=== PATIENT | female | born 2000 | race Caucasian/White ===

== ENCOUNTER 2022-12-17 12:43 | Emergency (ER) | payer MEDICAID, SELFPAY ==
--- NOTE | ~2022-12-17 | XR_ITS ---
EXAMINATION: XR knee LT 3V DATE: 12/17/2022 14:28 INDICATION: Nontraumatic medial left knee pain TECHNIQUE: Anteroposterior, oblique and crosstable lateral views of the left knee were obtained COMPARISON: None. FINDINGS: Alignment is normal. No fracture. Joint spaces appear normal on nonweightbearing imaging. No joint e ffusion/layering lipohemarthrosis. Soft tissues are unremarkable. IMPRESSION: 1. Negative left knee radiographs. Reviewed, dictated and finalized at location A.
--- NOTE | ~2022-12-17 | US_ITS ---
EXAMINATION: US venous doppler [facility] DATE: 12/17/2022 13:41 INDICATION: Left lower limb pain. TECHNIQUE: Grayscale ultrasound images without and with compression and Doppler ultrasound images of the left lower extremity veins were obtained. COMPARISON: None. FINDINGS: The visualized portions of left common femoral vein, profunda (deep) femoral vein, femoral vein, popl iteal vein, peroneal veins, posterior tibial veins, and greater saphenous vein outflow are patent. IMPRESSION: 1. No deep venous thrombosis. Reviewed, dictated and finalized at location E.
[2022-12-17 12:50] VITALS: BP 148/74; PULSE 98; RESP 18; TEMP 36.3; O2SAT 100
--- NOTE | 2022-12-17 13:39 | ED.EXTPRO ---
HPI - Extremity Problem General Chief complaint: Extremity Problem,Nontraumatic Stated complaint: left leg pain - history of vascular disease Time Seen by Provider: 12/17/22 13:39 Source: patient Mode of arrival: ambulatory Limitations: no limitations History of Present Illness HPI Narrative: 22 years old white female presents with pain and the medial side of the distal left thigh and left knee started 2 months ago, intermittent. Patient is concerned about the possibility of vitamin D deficiency causing her symptoms. She denied any history of blood disorders. Or trauma. She denies any fever, chills, nausea, vomiting, shortness of breath or chest pain Related Data Allergies Allergy/AdvReac Type Severity Reaction Status Date / Time No Known Allergies Allergy Verified 12/17/22 12:44 Review of Systems Review of Systems: All systems reviewed & are unremarkable except as noted in HPI and below Exam Narrative: General appearance: Well-developed, well-nourished Skin: Normal color Head: Normocephalic, nontraumatic Eyes: Clear conjunctiva ENT: Oropharynx normal, ears normal, nose normal Neck: Supple, nontender Chest and respiratory: Airway patent, no respiratory distress, no accessory muscle use Heart: Regular rate/rhythm Abdomen: Soft, nontender, no organomegaly, quiet bowel sounds Vascular: Normal peripheral pulses, normal capillary refill. 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, no gross motor deficit Course Vital Signs Vital signs: Vital Signs Temperature 36.3 C L 12/17/22 12:50 Pulse Rate 98 12/17/22 12:50 Respiratory Rate 18 12/17/22 12:50 Blood Pressure 148/74 H 12/17/22 12:50 Pulse Oximetry 100 12/17/22 12:50 Oxygen Delivery Room Air 12/17/22 12:50 Temperature 36.3 C L 12/17/22 12:50 Pulse Rate 98 12/17/22 12:50 Respiratory Rate 18 12/17/22 12:50 Blood Pressure 148/74 H 12/17/22 12:50 Pulse Oximetry 100 12/17/22 12:50 Oxygen Delivery Room Air 12/17/22 12:50 MDM - Extremity (Nontraumatic) MDM Narrative Medical decision making narrative: Differential diagnosis, strain, sprain, contusion Work-up today showed no acute abnormality including venous Doppler of left lower extremity and x-ray of the left knee. Discharged on Tylenol, ibuprofen as needed Differential Diagnosis Differential diagnosis: Likely other (Sprain/strain, arthritis, deep vein thrombosis) Imaging Data Radiologist's impression: Impressions Venous Doppler Study 12/17/22 13:44 IMPRESSION: 1. No deep venous thrombosis. Knee X-Ray 12/17/22 14:43 IMPRESSION: 1. Negative left knee radiographs. Critical Care Time Critical Care Time Critical Care Time: No Discharge Plan Discharge Clinical Impression: Left leg pain Patient Disposition: Home, Self-Care Condition: Stable Instructions: Leg Pain (ED) Additional Instructions: Return if symptoms are worsening , call your family physician for appointment, take Tylenol as as needed for aches and pain, continue home medications. Continue ibuprofen 600 every 6 hours as needed Follow-up/Referrals: PHYSICIAN,HOG MAN [Primary Care Provider] - Kike Hilario MD [Physician] - 12/17/22 2:55 pm
== END 2022-12-17 14:59 | disposition home or self-care (01) ==
PROVIDERS: Emergency Provider Emergency Medicine
DX: M79.605 Pain in left leg (principal)
CPT/HCPCS: 73562; 93971; 99284

== ENCOUNTER 2023-03-04 00:47 | Emergency (ER) | payer OTHER, SELFPAY ==
[2023-03-04] VITALS (11 sets, daily range): BP systolic 123–145; BP diastolic 69–96; PULSE 72–105; RESP 14–18; TEMP 36.9; O2SAT 97–100
[2023-03-04 03:08] LABS: Basophils Absolute Auto 0.1 K/mm3 (0.0-0.1); Basophils Percent Auto 0.5 % (0.2-1.2); Eosinophils Absolute Auto 0.2 K/mm3 (0-0.3); Eosinophils Percent Auto 1.3 % (0-4.4); Hematocrit 42.7 % (37.0-47.0); Hemoglobin 13.7 g/dL (12.0-15.0); Immature Granulocyte Absolute 0.04 K/mm3 (0.00-0.031); Immature Granulocyte Percent A 0.4 % (0-0.5); Immature Platelet Fraction Pct 6.4 % (0.9-11.2); Lymphocytes Absolute Auto 4.14 K/mm3 (0.9-3.2); Lymphocytes Percent Auto 37.2 % (18.3-44.2); Mean Corpuscular HGB Conc 32.1 g/dl (32-36); Mean Corpuscular Hemoglobin 29.5 pg (26-34); Mean Corpuscular Volume 91.8 fl (80-100); Mean Platelet Volume 11.8 fl (7.4-10.4); Monocytes Absolute Auto 0.9 K/mm3 (0.1-0.6); Neutrophils Absolute Auto 5.9 K/mm3 (1.3-6.7); Neutrophils Percent Auto 52.6 % (45.5-73.1); Platelet Count Result 367 k/mm3 (150-375); Red Blood Count 4.65 M/mm3 (4.2-5.4); Red Cell Distribution Width 13.5 % (11.5-14.5); White Blood Count 11.1 K/mm3 (4.5-10.0)
[2023-03-04 03:13] LABS: Partial Thromboplastin Time 32.7 SECONDS (22.3-36.8); Prothrombin Time 13.1 Seconds (11.1-14.7)
[2023-03-04 03:18] LABS: Alanine Aminotransferase 32 U/L (6-35); Albumin Level 4.7 g/dL (3.5-5.1); Alkaline Phosphatase 71 U/L (38-126); Anion Gap 9 mmol/L (8-16); Aspartate Amino Transferase 29 U/L (14-36); Bilirubin,Total 0.3 mg/dL (0.2-1.3); Blood Urea Nitrogen 10 mg/dL (7-17); Calcium 9.7 mg/dL (8.4-10.2); Carbon Dioxide 29 mmol/L (22-30); Chloride 104 mmol/L (98-107); Estimated CRCL calculation 124 ml/min; Estimated Glomerular Filt Rate > 60; Glucose 108 mg/dL (65-110); Potassium 3.6 mmol/L (3.4-5.0); Sodium 142 mmol/L (137-145)
--- NOTE | 2023-03-04 05:16 | ED.GENADULT ---
HPI - General Adult General Chief complaint: GI Bleed Stated complaint: blood in stool Time Seen by Provider: 03/04/23 04:08 Source: patient Limitations: no limitations History of Present Illness HPI narrative: Patient is a 22-year-old female presents to the emergency department complaining of abnormal stool color. Patient notes over the past 24 hours she has noticed in [place] appearance to her stools, denies any history is the past, denies any new or change medications or any abnormal food consumption recently. Patient admits to some sporadic left upper quadrant cramping discomfort over the past couple days that she is not currently experiencing has not noticed anything that brings it on or makes it go away and took Tylenol for it and is overall not having any discomfort at this time it is not significantly distressing. Patient denies any history of Gastroenterology evaluation. Patient denies any bright red blood in her stool, dark tarry stools, vomiting, sick contacts, fever, chest pain, difficulty breathing, urinary discomfort blood thinner use, NSAID use, hematuria, vaginal bleeding, vaginal discharge, recent injuries, recent illness. Patient also last menstrual period was February 17 to . Patient admits to history of constipation chronically and often has difficulty with bowel movements and strains and often has large hard stools. Patient has pictures on her phone of her stool that primarily appears brown with tinges of orange in the water. Related Data Allergies Allergy/AdvReac Type Severity Reaction Status Date / Time No Known Allergies Allergy Verified 12/17/22 12:44 Review of Systems Review of Systems: A 10 system review of systems was completed on the patient and is negative except for what is stated in the HPI. Nursing and ancillary documentation was reviewed. PMFSH Comments At time of signature, I have reviewed and agree with nursing past medical, surgical, social and family history unless otherwise noted. Please see the nursing chart for further information. There is no relevant family history pertinent to the presenting complaint. Exam Narrative: CONST: No acute distress. Well nourished. HENMT: Head is normocephalic and atraumatic. Moist mucous membranes. No posterior oropharynx erythema. EYES: No conjunctival icterus, injection, or pallor. PERRL. NECK: No meningeal signs. RESP: Able to speak in full sentences. Normal respiratory effort. CTAB. CARDIO: Regular rate. Regular rhythm. 2+ DP and radial pulses bilaterally. GI: Nondistended. No tenderness to palpation. Soft. Negative Calle sign. No McBurney's point tenderness palpation no palpable masses or hernias. : No CVA tenderness to palpation. External examination of the anus does not reveal any fissures or hemorrhoids. Digital rectal examination reveals normal anal tone, no palpable internal hemorrhoids, no gross blood, stool Hemoccult is negative, slight orange appearance to the stool. SKIN: No rashes or lesions noted on exposed skin. NEURO: Oriented x3. Moves all extremities. EXTREM/MSK/BACK: No pedal edema. PSYCH: Normal affect. Course Vital Signs Vital signs: Vital Signs Temperature 98.4 F 03/04/23 00:55 Pulse Rate 99 03/04/23 00:55 Respiratory Rate 18 03/04/23 00:55 Blood Pressure 145/82 H 03/04/23 00:55 Pulse Oximetry 100 03/04/23 00:55 Temperature 98.4 F 03/04/23 00:55 Pulse Rate 77 03/04/23 06:24 Respiratory Rate 15 03/04/23 06:24 Blood Pressure 131/75 03/04/23 06:24 Pulse Oximetry 99 03/04/23 06:24 Procedures Stool Hemoccult Stool hemoccult #1: Stool Hemoccult Date: 03/04/23 Stool Hemoccult Time: 05:28 Procedural Steps Taken: stool placed in appropriate test area, developer placed on stool and control areas and controls appropriately positive and negative Hemoccult result: negative Medical Decision Making MDM Narrative Medical decision making narrative
[2023-03-04 05:50] LABS: Appearance Urine Clear (Clear); Bilirubin Urine Negative (Negative); Blood Urine Negative (Negative); Color Urine Yellow (Yellow); Glucose Urine UA Negative (Negative); Ketones Urine Negative (Negative); Leukocyte Esterase Ur Negative LEU/UL (Negative); Nitrate Urine Negative (Negative); Protein Urine Negative (Negative); Specific Grav Ur 1.025 (1.001-1.035); Urobilinogen Urine 0.2 mg/dL (<2.0)
[2023-03-04 06:03] LABS: Add Urine Microscopic? NO
== END 2023-03-04 06:26 | disposition home or self-care (01) ==
PROVIDERS: Emergency Provider Student in an Organized Health Care Education/Training Program
DX: R19.5 Other fecal abnormalities (principal)
CPT/HCPCS: 36415; 80053; 81003; 81025; 85025; 85055; 85610; 85730; 86850; 86900; 86901; 99283

== ENCOUNTER 2023-04-08 13:07 | Emergency (ER) | payer OTHER, SELFPAY ==
--- NOTE | ~2023-04-08 | US_ITS ---
EXAMINATION: US venous doppler [facility] DATE: 04/08/2023 14:09 INDICATION: Right lower limb swelling TECHNIQUE: Johns scale images without and with compression and Doppler images of the right lower extre mity veins were obtained. COMPARISON: None FINDINGS: The right common femoral vein, profunda femoral vein, femoral vein, popliteal vein, peronea l trunk, posterior tibial veins, and greater saphenous vein are patent. IMPRESSION: 1. Patent right lower extremity veins. No evidence of deep venous thrombosis. Reviewed, dictated and finalized at location B. 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
[2023-04-08 13:14] VITALS: BP 141/79; PULSE 86; RESP 17; TEMP 36.5; O2SAT 100
--- NOTE | 2023-04-08 18:18 | ED.EXTPRO ---
HPI - Extremity Problem General Chief complaint: Extremity Problem,Nontraumatic <Mckay Mack APRN - Last Filed: 04/08/23 19:02> Stated complaint: leg spasms <Mckay Mack APRN - Last Filed: 04/08/23 19:02> Time Seen by Provider: 04/08/23 17:15 <Mckay Mack APRN - Last Filed: 04/08/23 19:02> Source: patient <Mckay Mack APRN - Last Filed: 04/08/23 19:02> Mode of arrival: ambulatory <Mckay Mack APRN - Last Filed: 04/08/23 19:02> Limitations: no limitations <Mckay Mack APRN - Last Filed: 04/08/23 19:02> History of Present Illness HPI Narrative: Drew is a 22-year-old female patient presenting to the ER today for complaints of leg spasms in the right calf and around the right knee that started last night. States she felt as though she had a cramp in her leg last night and has been having some leg spasms as well. <Mckay Mack APRN - Last Filed: 04/08/23 19:02> Related Data Allergies/Adverse reactions: Allergies Allergy/AdvReac Type Severity Reaction Status Date / Time No Known Allergies Allergy Verified 12/17/22 12:44 <Mckay Mack APRN - Last Filed: 04/08/23 19:02> Review of Systems Review of Systems: Pertinent positives per HPI. Patient denies any fever, chills, rash, headache, visual changes, dizziness, cough, shortness of breath, chest pain, palpitations, nausea, vomiting, diarrhea, constipation, abdominal pain, or any urinary issues. <Mckay Mack APRN - Last Filed: 04/08/23 19:02> PMFSH Comments At the time of my signature, I reviewed and agree with the nursing past medical, surgical, social, and family history. There is no relevant family history pertinent to the patient complaint. <Mckay Mack APRN - Last Filed: 04/08/23 19:02> Exam Narrative: General: Well-developed, well nourished, in no apparent distress Head: Normocephalic, atraumatic. Cardio: Regular rate and rhythm, s1 and s2 normal, no murmur appreciated. Resp: Clear to auscultation bilaterally, no rhonchi, rales, wheezing or rubs. Musculoskeletal: No deformity, mild-tender to palpation over the right calf, grossly normal range of motion, muscle strength strong and equal, peripheral pulse strong, no edema, no cyanosis, normal gait and station <Mckay Mack APRN - Last Filed: 04/08/23 19:02> Course Course Emergency Course: Portions of this record may have been created with voice recognition software. <Mckay Mack APRN - Last Filed: 04/08/23 19:02> Portions of this record may have been created with voice recognition software. 1931: Case signed out to me at shift change. Labs and imaging reviewed. I personally evaluated the patient and agree with the assessment and plan. Will discharge home encourage PCP follow-up. Strict ED return precautions were discussed. She is agreeable to plan verbalized understanding. Discharged in stable condition. <Michelle Knight PA-C - Last Filed: 04/08/23 19:32> Vital Signs Vital signs: Vital Signs Temperature 97.7 F 04/08/23 13:14 Pulse Rate 86 04/08/23 13:14 Respiratory Rate 17 04/08/23 13:14 Blood Pressure 141/79 H 04/08/23 13:14 Pulse Oximetry 100 04/08/23 13:14 Temperature 97.7 F 04/08/23 13:14 Pulse Rate 91 04/08/23 18:55 Respiratory Rate 18 04/08/23 18:55 Blood Pressure 117/65 04/08/23 18:55 Pulse Oximetry 99 04/08/23 18:55 Vital signs reviewed <Mckay Mack APRN - Last Filed: 04/08/23 19:02> Vital Signs Temperature 97.7 F 04/08/23 13:14 Pulse Rate 86 04/08/23 13:14 Respiratory Rate 17 04/08/23 13:14 Blood Pressure 141/79 H 04/08/23 13:14 Pulse Oximetry 100 04/08/23 13:14 Temperature 97.7 F 04/08/23 13:14 Pulse Rate 91 04/08/23 18:55 Respiratory Rate 18 04/08/23 18:55 Blood Pressure 117/65 04/08/23 18:55 Pulse Oximetry 99 04/08/23 18:55
[2023-04-08 18:55] VITALS: BP 117/65; PULSE 91; RESP 18; O2SAT 99
[2023-04-08 19:12] LABS: Basophils Percent Auto 0.4 % (0.2-1.2); Eosinophils Absolute Auto 0.1 K/mm3 (0-0.3); Eosinophils Percent Auto 1.3 % (0-4.4); Hematocrit 44.1 % (37.0-47.0); Hemoglobin 14.4 g/dL (12.0-15.0); Immature Granulocyte Absolute 0.02 K/mm3 (0.00-0.031); Immature Granulocyte Percent A 0.2 % (0-0.5); Mean Corpuscular HGB Conc 32.7 g/dl (32-36); Mean Corpuscular Hemoglobin 29.6 pg (26-34); Mean Corpuscular Volume 90.6 fl (80-100); Monocytes Absolute Auto 0.8 K/mm3 (0.1-0.6); Monocytes Percent Auto 7.2 % (2.6-8.5); Neutrophils Percent Auto 53.9 % (45.5-73.1); Platelet Count Result 375 k/mm3 (150-375); Red Blood Count 4.87 M/mm3 (4.2-5.4); Red Cell Distribution Width 13.1 % (11.5-14.5); White Blood Count 11.1 K/mm3 (4.5-10.0)
[2023-04-08 19:26] LABS: Alanine Aminotransferase 34 U/L (6-35); Albumin Level 4.8 g/dL (3.5-5.1); Alkaline Phosphatase 64 U/L (38-126); Anion Gap 9 mmol/L (8-16); Aspartate Amino Transferase 36 U/L (14-36); Bilirubin,Total 0.5 mg/dL (0.2-1.3); Blood Urea Nitrogen 11 mg/dL (7-17); Carbon Dioxide 28 mmol/L (22-30); Chloride 100 mmol/L (98-107); Estimated CRCL calculation 161 ml/min; Estimated Glomerular Filt Rate > 60; Glucose 95 mg/dL (65-110); Magnesium 2.1 mg/dL (1.6-2.3); Potassium 3.9 mmol/L (3.4-5.0); Sodium 137 mmol/L (137-145)
== END 2023-04-08 19:42 | disposition home or self-care (01) ==
PROVIDERS: Emergency Provider Nurse Practitioner Family
DX: M79.661 Pain in right lower leg (principal)
CPT/HCPCS: 36415; 80053; 83735; 85025; 93971; 99284

== ENCOUNTER 2023-08-20 12:43 | Emergency (ER) | payer MEDICAID, SELFPAY ==
--- NOTE | ~2023-08-20 | US_ITS ---
EXAMINATION: US venous doppler [facility] DATE: 08/20/2023 13:09 INDICATION: Left lower limb pain. TECHNIQUE: Grayscale ultrasound images without and with compression and Doppler ultrasound images of the left lower extremity veins were obtained. COMPARISON: Ultrasound 12/17/2022 FINDINGS: The visualized portions of left common femoral vein, profunda (deep) femoral vein, femoral vein, popl iteal vein, peroneal veins, posterior tibial veins, and greater saphenous vein outflow are patent. IMPRESSION: 1. No deep venous thrombosis. Reviewed, dictated and finalized at location A.
[2023-08-20 12:45] VITALS: BP 122/95; PULSE 99; RESP 16; TEMP 36.6; O2SAT 98
--- NOTE | 2023-08-20 13:22 | ED.GENADULT ---
HPI - General Adult General Chief complaint: Extremity Problem,Nontraumatic Stated complaint: L leg cramps Time Seen by Provider: 08/20/23 12:49 History of Present Illness HPI narrative: Patient is a 22-year-old female who presents ER with cramping to the left thigh. Began this morning. No known injury. No leg swelling. No pain in the actual knee. She is not on blood thinners or control pills. No history of blood clots. But she is worried about DVT. No calf pain. Related Data Allergies Allergy/AdvReac Type Severity Reaction Status Date / Time No Known Allergies Allergy Verified 12/17/22 12:44 Review of Systems Constitutional: Constitutional: Reports no additional constitutional complaints Musculoskeletal: Musculoskeletal: Denies arthralgias, Denies joint swelling and Reports muscle cramps Integumentary/Breasts: Skin/Breast: Reports system reviewed and no additional complaints, except as docu [facility] Past Medical History Medical History (Updated 08/20/23 @ 13:30 by Joe Shaw MD) Healthy female adult Exam Narrative: GENERAL: Well-appearing, morbidly obese, and in no acute distress. HEAD: Normocephalic, atraumatic. ENT: Mucous membranes moist. CHEST: Clear to auscultation. No respiratory distress. HEART: Regular rate and rhythm. Normal peripheral pulses. EXTREMITIES: Normal range of motion. No edema. No lent knee tenderness/effusion. NEURO: Alert and oriented x3. PSYCH: Normal mood and affect. Course Course Emergency Course: Patient found results. Discharge home with supportive care. Vital Signs Vital signs: Vital Signs Temperature 97.9 F 08/20/23 12:45 Pulse Rate 99 08/20/23 12:45 Respiratory Rate 16 08/20/23 12:45 Blood Pressure 122/95 H 08/20/23 12:45 Pulse Oximetry 98 08/20/23 12:45 Oxygen Delivery Room Air 08/20/23 12:45 Temperature 97.9 F 08/20/23 12:45 Pulse Rate 99 08/20/23 12:45 Respiratory Rate 16 08/20/23 12:45 Blood Pressure 122/95 H 08/20/23 12:45 Pulse Oximetry 98 08/20/23 12:45 Oxygen Delivery Room Air 08/20/23 12:45 Medical Decision Making Vital Signs Vital Signs: Vital Signs Temperature 97.9 F 08/20/23 12:45 Pulse Rate 99 08/20/23 12:45 Respiratory Rate 16 08/20/23 12:45 Blood Pressure 122/95 H 08/20/23 12:45 Pulse Oximetry 98 08/20/23 12:45 Oxygen Delivery Room Air 08/20/23 12:45 Temperature 97.9 F 08/20/23 12:45 Pulse Rate 99 08/20/23 12:45 Respiratory Rate 16 08/20/23 12:45 Blood Pressure 122/95 H 08/20/23 12:45 Pulse Oximetry 98 08/20/23 12:45 Oxygen Delivery Room Air 08/20/23 12:45 Imaging Data Radiologist's impression: ITS Impressions Venous Doppler Study 08/20/23 13:11 IMPRESSION: 1. No deep venous thrombosis. Discharge Plan Discharge Clinical Impression: Musculoskeletal thigh pain Patient Disposition: Home, Self-Care Condition: Stable Instructions: Leg Pain (ED) Additional Instructions: Return the ER if you have new pain, you have chest pain shortness of breath, you lose consciousness, or you have additional concerns. Prescriptions: New ibuprofen 600 mg tablet 600 mg PO TID Qty: 14 0RF No Action Metamucil 3.4 gram/5.4 gram powder 1 tbsp PO DAILY Qty: 660 0RF Rx Instructions: mix into at least 8 oz of water or juice before administering sennosides [senna] 8.6 mg tablet 8.6 mg PO DAILY PRN (Reason: constipation) Qty: 20 0RF Follow-up/Referrals: Vanessa,DARRICK Polo [Primary Care Provider] - 1 Week
== END 2023-08-20 13:41 | disposition home or self-care (01) ==
PROVIDERS: Emergency Provider Emergency Medicine; PCP Nurse Practitioner Family
DX: M79.652 Pain in left thigh (principal)
CPT/HCPCS: 93971; 99284

== ENCOUNTER 2023-08-23 21:10 | Emergency (ER) | payer MEDICAID, SELFPAY ==
[2023-08-23 21:12] VITALS: BP 136/78; PULSE 97; RESP 16; TEMP 36.3; O2SAT 100
[2023-08-23 21:27] VITALS: RESP 18; O2SAT 100
[2023-08-23 22:06] LABS: Alveolar/Arterial O2 Gradient 6.5 mmHg; Base Excess ABG -1.5 mEq/l (+/-2.0); Carboxyhemoglobin 0.3 % THb (0-2.0); Fractional Inspired Oxygen 21 %; HCO3 ABG 21.4 mEq/l (22.0-26.0); Methemoglobin ABG 0.3 %THb (0-1.5); Oxygen Content ABG 19.8 %vol (16.0-22.0); Oxygen Saturation ABG 98.1 % (95.0-100.0); Oxyhemoglobin 97.7 % THb (90.0-100.0); PCO2 ABG 31.1 mmHg (35.0-45.0); PO2 FiO2 Ratio Arterial Blood 5.05 %; Reduced Hemoglobin 1.7 %THb (0-5.0); Total Hemoglobin 14.3 g/dL (12.0-18.0); pH ABG 7.455 (7.350-7.450)
[2023-08-23 22:08] LABS: Device ROOM AIR; Modified Allen's Test Pass; Site Drawn LEFT BRACHIAL
--- NOTE | 2023-08-24 01:04 | ED.GENADULT ---
HPI - General Adult General Chief complaint: Unspecified Stated complaint: i want to be checked for carbon monoxide Time Seen by Provider: 08/23/23 21:38 History of Present Illness HPI narrative: patient has had mild nausea, headache, and some nasal congestion over last 2 days, she is very concerned that she may have carbon monoxide poisoning. Related Data Allergies Allergy/AdvReac Type Severity Reaction Status Date / Time No Known Allergies Allergy Verified 12/17/22 12:44 Review of Systems Review of Systems: All systems reviewed & are unremarkable except as noted in HPI and below [facility] Past Medical History Medical History (Updated 08/24/23 @ 00:00 by Background Daemon) Healthy female adult Exam Narrative: EXAMINATION OF ORGAN SYSTEMS/BODY AREAS: Constitutional: Vital signs per nursing GENERAL:[No acute distress, non-toxic appearing.] HEAD: Normal with no signs of head trauma. EYES: EOMI, conjunctiva normal ENT: Hearing grossly intact LUNGS: Nonlabored breathing. HEART: [Regular rate and rhythm] ABD: [Soft], [nontender to palpation] EXT: Normal range of motion SKIN: [No rashes or lesions.] NEURO: [Alert and oriented x 3. No gross focal sensory or strength deficits.] PSYCH: Normal affect Course Vital Signs Vital signs: Vital Signs Temperature 97.4 F L 08/23/23 21:12 Pulse Rate 97 08/23/23 21:12 Respiratory Rate 16 08/23/23 21:12 Blood Pressure 136/78 08/23/23 21:12 Pulse Oximetry 100 08/23/23 21:12 Oxygen Delivery Room Air 08/23/23 21:12 Temperature 97.4 F L 08/23/23 21:12 Pulse Rate 97 08/23/23 21:12 Respiratory Rate 18 08/23/23 21:27 Blood Pressure 136/78 08/23/23 21:12 Pulse Oximetry 100 08/23/23 21:27 Oxygen Delivery Room Air 08/23/23 21:12 Medical Decision Making [facility] Narrative Medical decision making narrative: Patient presents because she is concerned about having carbon monoxide poisoning. I did therefore due to fully obtain an ABG and this is thankfully normal without elevated carboxyhemoglobin. I discussed with the patient, she is very well-appearing here with normal vital signs and normal oxygenation on room air, I suspect more likely she has a viral syndrome and I have asked her to follow up with primary care doctor with return precautions. She has no neurologic symptoms here and is smiling, well appearing, ambulating normal steady gait, speaking with clear speech Vital Signs Vital Signs: Vital Signs Temperature 97.4 F L 08/23/23 21:12 Pulse Rate 97 08/23/23 21:12 Respiratory Rate 16 08/23/23 21:12 Blood Pressure 136/78 08/23/23 21:12 Pulse Oximetry 100 08/23/23 21:12 Oxygen Delivery Room Air 08/23/23 21:12 Temperature 97.4 F L 08/23/23 21:12 Pulse Rate 97 08/23/23 21:12 Respiratory Rate 18 08/23/23 21:27 Blood Pressure 136/78 08/23/23 21:12 Pulse Oximetry 100 08/23/23 21:27 Oxygen Delivery Room Air 08/23/23 21:12 Lab Data Labs: Lab Results 08/23/23 Range/Units 21:49 Methemoglobin 0.3 (0-1.5) %THb ABG Data ABG results: 08/23/23 21:49 Puncture Site Left brachial ABG pH 7.455 H ABG pCO2 31.1 L ABG pO2 106.0 H ABG PO2/FiO2 Ratio 5.05 ABG HCO3 21.4 L ABG O2 Saturation 98.1 ABG O2 Content 19.8 ABG Base Excess -1.5 A-a Gradient 6.5 Oxyhemoglobin 97.7 Carboxyhemoglobin 0.3 Reduced Hemoglobin 1.7 Total Hemoglobin 14.3 O2 Delivery Device Room air O2 Liters/Min Not Reportable FiO2 21 Discharge Plan Discharge Clinical Impression: Acute viral syndrome Patient Disposition: Home, Self-Care Condition: Stable Instructions: Antibiotic Form, Viral Syndrome (ED) Additional Instructions: Please follow up with your PCP; return to the ER for any further issues. Prescriptions: No Action Metamucil 3.4 gram/5.4 gram powder 1 tbsp PO DAILY Qty: 660 0RF Rx Instructions: mix into at least 8 oz of wate
== END 2023-08-23 22:33 | disposition home or self-care (01) ==
PROVIDERS: Emergency Provider Emergency Medicine; PCP Nurse Practitioner Family
DX: B34.9 Viral infection, unspecified (principal)
CPT/HCPCS: 36600; 82375; 82805; 83050; 99283

== ENCOUNTER 2024-01-28 07:47 | Emergency (ER) | payer BC, OTHER, SELFPAY ==
--- NOTE | ~2024-01-28 | US_ITS ---
EXAMINATION: US venous doppler [facility] DATE: 01/28/2024 08:49 INDICATION: Left lower limb pain TECHNIQUE: Grayscale ultrasound images without and with compression and Doppler ultrasound images of the left lower extremity veins were obtained. COMPARISON: None. FINDINGS: The visualized portions of left common femoral vein, profunda (deep) femoral vein, femoral vein, popl iteal vein, peroneal veins, posterior tibial veins, gastrocnemius vein and greater saphenous vein out flow are patent. IMPRESSION: 1. No deep venous thrombosis in the left lower limb. Reviewed, dictated and finalized at location A. HERIZATION TECHNICIAN
--- NOTE | ~2024-01-28 | XR_ITS ---
EXAMINATION: XR knee LT 3V DATE: 01/28/2024 08:32 INDICATION: Nontraumatic posterior left knee pain TECHNIQUE: Anteroposterior, sunrise and crosstable lateral views of the affected knee were obtained COMPARISON: None. FINDINGS: Alignment is normal. No fracture. Joint spaces are normal. No joint effusion/layering lipohemarthros is. Soft tissues are unremarkable. IMPRESSION: 1. Negative left knee radiographs. Reviewed, dictated and finalized at location A. POUR SUPERVISOR
[2024-01-28 07:55] VITALS: BP 136/77; PULSE 94; RESP 18; TEMP 36.6; O2SAT 100
--- NOTE | 2024-01-28 08:30 | ED_ITS ---
HPI - General Adult General Chief complaint: Extremity Problem,Nontraumatic Stated complaint: Left leg pain Time Seen by Provider: 01/28/24 08:06 History of Present Illness HPI narrative: patient 23-year-old female presents emergency department with chief complaint of left calf pain. The patient reports that started having pain about a week ago reports that it started in the knee and then has progressed to where it is in the left calf area. The patient reports pain is worse with ambulation reports no trauma reports no long period of immobilization patient denies fever denies shortness of breath denies redness or swelling Related Data Allergies Allergy/AdvReac Type Severity Reaction Status Date / Time No Known Allergies Allergy Verified 01/28/24 08:09 Review of Systems 2 Review of Systems: A 10 system review of systems was completed on the patient and is negative except for what is stated in the HPI. Nursing and ancillary documentation was reviewed. [facility] Past Medical History Medical History Healthy female adult Exam 2 Narrative: GENERAL: Well-appearing, well-nourished, and in no acute distress. HEAD: Normocephalic, atraumatic. EYES: PERRLA and EOMI. ENT: Nares clear, no rhinorrhea or epistaxis. Mucous membranes moist. NECK: Supple. CHEST: Clear to auscultation. No respiratory distress. HEART: Regular rate and rhythm. No murmur heard. Normal peripheral pulses. ABDOMEN: Soft, nontender, nondistended, normal active bowel sounds. EXTREMITIES: Normal range of motion tenderness to palpation in the left calf. No edema. SKIN: Warm, dry, no rash. NEURO: No focal deficits. Alert and oriented x3. PSYCH: Normal mood and affect. Course Vital Signs Vital signs: Vital Signs Temperature 36.6 C 01/28/24 07:55 Pulse Rate 94 01/28/24 07:55 Respiratory Rate 18 01/28/24 07:55 Blood Pressure 136/77 01/28/24 07:55 Pulse Oximetry 100 01/28/24 07:55 Oxygen Delivery Room Air 01/28/24 07:55 Temperature 36.6 C 01/28/24 07:55 Pulse Rate 94 01/28/24 07:55 Respiratory Rate 18 01/28/24 07:55 Blood Pressure 136/77 01/28/24 07:55 Pulse Oximetry 100 01/28/24 07:55 Oxygen Delivery Room Air 01/28/24 07:55 Medical Decision Making MDM Narrative Medical decision making narrative: differential diagnosis includes fracture, DVT, electrolyte abnormality laboratory studies were obtained showed potassium of 4.4 renal function was normal magnesium was 1.9 plain film x-rays of the left knee showed no evidence of fracture venous duplex showed no evidence of DVT Vital Signs Vital Signs: Vital Signs Temperature 36.6 C 01/28/24 07:55 Pulse Rate 94 01/28/24 07:55 Respiratory Rate 18 01/28/24 07:55 Blood Pressure 136/77 01/28/24 07:55 Pulse Oximetry 100 01/28/24 07:55 Oxygen Delivery Room Air 01/28/24 07:55 Temperature 36.6 C 01/28/24 07:55 Pulse Rate 94 01/28/24 07:55 Respiratory Rate 18 01/28/24 07:55 Blood Pressure 136/77 01/28/24 07:55 Pulse Oximetry 100 01/28/24 07:55 Oxygen Delivery Room Air 01/28/24 07:55 Lab Data 01/28/24 08:59 01/28/24 08:59 Labs: Lab Results 01/28/24 Range/Units 08:59 WBC 8.0 (4.5-10.0) K/mm3 RBC 4.75 (4.2-5.4) M/mm3 Hgb 14.1 (12.0-15.0) g/dL Hct 42.1 (37.0-47.0) % MCV 88.6 (80-100) fl MCH 29.7 (26-34) pg MCHC 33.5 (32-36) g/dl RDW 13.2 (11.5-14.5) % Plt Count 324 (150-375) k/mm3 MPV 11.2 H (7.4-10.4) fl Immature Gran % (Auto) 0.4 (0-0.5) % Neut % (Auto) 50.6 (45.5-73.1) % Lymph % (Auto) 37.7 (18.3-44.2) % [place] % (Auto) 9.6 H (2.6-8.5) % Eos % (Auto) 1.2 (0-4.4) % Baso % (Auto) 0.5 (0.2-1.2) % Lymph # (Auto) 3.03 (0.9-3.2) K/mm3 Madison # (Auto) 0.8 H (0.1-0.6) K/mm3 Eos # (Auto) 0.1 (0-0.3) K/mm3 Baso # (Auto) 0.0 (0.0-0.1) K/mm3 Abs Immat Gran (auto) 0.03 (0.00-0.031) K/mm3 Absolute Neuts (auto) 4.1 (1.3-6.7) K/mm3 Absolute Nucleated RBC 0.000 (0.0-0.012) K/mm3 Nucleated RBC % 0.0 (0.0-0.2) % PT 13.3 (11.1-14.7) Seconds INR 1.0 APTT 29.6 (22.3-36.8) Seconds Sodium 139 (137-145) mmol/L Potassium 4.4 (3.4-5.0) mmol/L Chloride 107 (98-107) mmol/L Carbon Dioxide 26 (22-30) mmol/L Anion Gap 6 (4-12) mmol/L BUN 13 (7-17) mg/dL Creatinine 0.50 L (0.7-1.0) mg/dL Estim Creat Clear Calc 189 ml/min Estimated GFR > 60 (59 - ) Glucose 101 (65-110) mg/dL Calcium 9.2 (8.4-10.2) mg/dL Magnesium 1.9 (1.6-2.3) mg/dL Total Bilirubin 0.4 (0.2-1.3) mg/dL AST 31 (14-36) U/L ALT 35 (6-35) U/L Alkaline Phosphatase 59 (38-126) U/L Total Protein 8.0 (6.3-8.2) g/dL Albumin 4.4 (3.5-5.1) g/dL Discharge Plan Discharge Clinical Impression: Pain of left calf Patient Disposition: Home, Self-Care Condition: Stable Instructions: Antibiotic Form, Leg Pain (ED) Patient Language: Tuvaluan Prescriptions: No Action Metamucil 3.4 gram/5.4 gram powder 1 tbsp PO DAILY Qty: 660 0RF Rx Instructions: mix into at least 8 oz of water or juice before administering sennosides [senna] 8.6 mg tablet 8.6 mg PO DAILY PRN (Reason: constipation) Qty: 20 0RF ibuprofen 600 mg tablet 600 mg PO TID Qty: 14 0RF Follow-up/Referrals: Vanessa,DARRICK Polo [Primary Care Provider] - Time of Disposition: 09:57
[2024-01-28 09:06] LABS: Basophils Percent Auto 0.5 % (0.2-1.2); Eosinophils Absolute Auto 0.1 K/mm3 (0-0.3); Eosinophils Percent Auto 1.2 % (0-4.4); Hematocrit 42.1 % (37.0-47.0); Hemoglobin 14.1 g/dL (12.0-15.0); Immature Granulocyte Absolute 0.03 K/mm3 (0.00-0.031); Immature Granulocyte Percent A 0.4 % (0-0.5); Lymphocytes Absolute Auto 3.03 K/mm3 (0.9-3.2); Lymphocytes Percent Auto 37.7 % (18.3-44.2); Mean Corpuscular HGB Conc 33.5 g/dl (32-36); Mean Corpuscular Hemoglobin 29.7 pg (26-34); Mean Corpuscular Volume 88.6 fl (80-100); Mean Platelet Volume 11.2 fl (7.4-10.4); Monocytes Absolute Auto 0.8 K/mm3 (0.1-0.6); Monocytes Percent Auto 9.6 % (2.6-8.5); Neutrophils Absolute Auto 4.1 K/mm3 (1.3-6.7); Neutrophils Percent Auto 50.6 % (45.5-73.1); Platelet Count Result 324 k/mm3 (150-375); Red Blood Count 4.75 M/mm3 (4.2-5.4); Red Cell Distribution Width 13.2 % (11.5-14.5)
[2024-01-28 09:19] LABS: Prothrombin Time 13.3 Seconds (11.1-14.7)
[2024-01-28 09:20] LABS: Partial Thromboplastin Time 29.6 Seconds (22.3-36.8)
[2024-01-28 09:25] LABS: Alanine Aminotransferase 35 U/L (6-35); Albumin Level 4.4 g/dL (3.5-5.1); Alkaline Phosphatase 59 U/L (38-126); Anion Gap 6 mmol/L (4-12); Aspartate Amino Transferase 31 U/L (14-36); Bilirubin,Total 0.4 mg/dL (0.2-1.3); Blood Urea Nitrogen 13 mg/dL (7-17); Calcium 9.2 mg/dL (8.4-10.2); Carbon Dioxide 26 mmol/L (22-30); Chloride 107 mmol/L (98-107); Estimated CRCL calculation 189 ml/min; Estimated Glomerular Filt Rate > 60; Glucose 101 mg/dL (65-110); Magnesium 1.9 mg/dL (1.6-2.3); Potassium 4.4 mmol/L (3.4-5.0); Sodium 139 mmol/L (137-145)
--- OUTSIDE RECORDS SUMMARY | 2024-01-31 21:34 | XMS_ITS | Encounter Summary ---
Author Organization [facility] Healthcare Address [address] [place] [id number] Care Team Providers Care Computer Service Technician Name Role Phone Mendez, Betsy MIGUEL Primary Care Provider [phone] Reason for Referral * Diagnostic Imaging (Routine) - Closed Specialty Diagnoses / Procedures Referred By Matt rodas Referred To Contact Diagnoses Threatened Procedures OB Transvaginal Mauricio Snell MD [address] [place] [address] [address] [address] Phone: tel: fax: [facility] [address] [place] [address] [place] [phone] Phone: tel: fax: Referral ID Status Reason Start Date Expiration Date Visits Re quested Visits Authorized [id number] Closed 05/31/2023 06/29/2024 1 1 Reason for Visit * Reason Onset Date Comments History of Miscarriage, 05/20/2023 Encounter Details Date Type Department Care Team (Late st Contact Info) Description 05/20/2023 Telephone [facility] [address] [place] [address] [place] [phone] Yesenia Harding RN History of Miscarriage, Social History Tobacco Use Types Packs/Day Years Used Date Smoking Tobacco: Never Smokeless Tobacco: Never PHQ-2 Answer Date Recorded PHQ-2 Total Score (If total score is 3 or more points, staff should administer the PHQ-9) 0 05/19/2023 Personal Safety Answer Date Recorded Getting School Help Needed Not on file 04/06 Comments Unknown Sex and Gender Information Value Date Recorded Sex Assigned at Not on file Legal Sex 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 * Telephone Encounter - Yesenia Harding RN - 06/07/2023 9:12 AM CDT BQHCG went from 1848 to 225. LMOM (OK per HIPAA) to let pt know. Enc to repeat BQHCG in 1 week on 06-13-23. Order placed. Enc to call with any concerns. * Telephone Encounter - Yesenia Harding RN - 06/06/2023 10:18 AM CDT Pt aware to repeat labs today. * Telephone Encounter - Yesenia Harding RN - 06/06/2023 10:04 AM CDT Per JT: Please call patient with results. QHCG is coming down consistent with history of miscarriage. Let's recheck level Tuesday to assure is resolving. * Telephone Encounter - Yesenia Harding RN - 06/03/2023 2:04 PM CDT Pt called today and aware that her BQHCG is going down. It went from 8864 to 1848. Pt states she continues to bleed and she started bleeding the day of her US on 06-01-23. She is not actively seeking conception. Pt states she's shockingly conceived x 2. Pt states she had an ovarian cystectomy at theage of 11 and the cyst weighed 25 lbs. She was told that it would be difficult for her to conceive. Order placed for repeat BQHCG on 06-08-23. * Telephone Encounter - Yesenia Harding RN - 06/02/2023 9:02 AM CDT Pt to get repeat BQHCG yesterday, but lab was closed. Pt to do today. * Telephone Encounter - Yesenia Harding RN - 05/31/2023 8:39 AM CDT Pt aware and scheduled for 06-01-23. * Telephone Encounter - Yesenia Harding RN - 05/31/2023 8:12 AM CDT Per JT: Please call patient. I discussed results with falling quantitative hCG levels and a lower progesterone. I discussed that this appears to be a miscarriage that has not yet started. Let us get a transvaginal ultrasound this week to establish an IUP. With a future if she calls early we can check her progesterone level and supplement progesterone. * Telephone Encounter - Yesenia Harding RN - 05/30/2023 11:28 AM CDT BQHCG on 05-19-23 was 9744, on 05-30-23 it was 8864 and Progesterone was 5.55. Spoke with pt. She is not having any cramping or bleeding. Blood type unknown. Please advise. Thanks! * Telephone Encounter - Mauricio Snell MD - 05/20/2023 10:45 AM CDT Agree. Let's also recheck TSH only 4 weeks after dose adjustment. * Telephone Encounter - Yesenia Harding RN - 05/20/2023 9:54 AM CDT Betsy Vanessa, [employer]ARC[employer] INDUSTRI[employer] ORGANIZATION MANAGER, reached out today stating that she saw pt yesterday and pt stated she had a positive home UCG. Betsy ordered a BQHCG and it was 9744. Pt has hypothyroidism, obesity and pre diabetes. Pts TSH yesterday was 5.38 and Free T4 was 0.93. Betsy increased her Levothyroxine to 50 mcg.Pt is a and had 1 SAB around 4 weeks . Will repeat BQHCG and do a Progesterone in 1 week on 05-26-23. Will make appts after lab work next week. Anything else? Thanks! documented in this encounter Plan of Treatment Scheduled Orders Name Type Priority Associated Diagnoses Orde r Schedule hCG, blood, quantitative Lab Routine SAB (spontaneous ) Expected: 06/09/2023, Expires: 06/02/2024 hCG, blood, quantitative Lab Routine SAB (spontaneous ) Expected: 06/13/2023, Expires: 06/06/2024 documented as of this encounter Results * (ABNORMAL) hCG, blood, quantitative (06/06/2023 1:12 PM CDT) hCG, quant 225.0(H) 0.0 - 5.0 IUnits/L Comment: Interpretive Data Male: < 5 IU/L Non- premenopausal Female: <5 IU/L The Scarlett hCG Beta Quant assay procedure was used. Results from different manufacturers or methods may not be comparable. ??Serial testing should be performed using the same method. Interpretive Data was last revised on 2023 Blood 06/06/2023 1:12 PM CDT 06/06/2023 8:44 PM CDT us Mauricio Snell MD LAB BLOOD ORDERABLES Final Result [facility] [id number] Department [place] [address] * US OB Transvaginal (06/01/2023 4:17 PM CDT) Endometrial Thickness 13.9 mm&millime ters VIEWPOINT Anatomical Region Laterality Modality Abdomen N/A Ultrasound 06/01/2023 4:20 PM CDT Impressions 06/01/2023 8:10 PM CDT 1. ??Normal size uterus with EMC of 13.9 mm. ??No intrauterine gestational sac is seen. ?? Patient has a clinical history of likely SAB last night. ??Will follow QHCG levels. ??I discussed plan with patient. ? 2. ?? Normal appearing ovaries with a 2 cm left ovarian corpus luteal cyst. ?? Narrative Procedure Note Mauricio Snell MD - 06/01/2023 IMPRESSION: 1. Normal size uterus with EMC of 13.9 mm. No intrauterine gestationalsac is seen. Patient has a clinical history of likely SAB last night.Will follow QHCG levels. I discussed plan with patient. 2. Normalappearing ovaries with a 2 cm left ovarian corpus luteal cyst. us Mauricio Snell MD IMG OB US PROCEDURES Final Result * Progesterone (05/27/2023 2:32 PM CDT) Progesterone 5.55 ng/mL Comment: Interpretive Data Males: ?<0.15 ng/mL Females: ??Follicular ?<0.20 ng/mL ??Ovulation ? <4.1 ng/mL ??Luteal ?4.1 - ??14.5 ng/mL ??1st Trimester ?? 11.0 - ??44.0 ng/mL ??2nd Trimester ?? 25.0 - ??83.0 ng/mL ??3rd Trimester ?? 59.0 - 214.0 ng/mL ??Postmenopausal ??<0.13 ng/mL Current interpretive data was last revised 2021. Testing performed by: [facility], [address] [place]., [address] Blood 05/27/2023 2:32 PM CDT 05/28/2023 9:37 PM CDT Mauricio Snell MD LAB BLOOD ORDERABLES Final Result Performing Organization Address [facility] de Phone Number [facility] [address] Department [place] [address] * (ABNORMAL) hCG, blood, quantitative (05/27/2023 2:32 PM CDT) hCG, quant 8,864.0(H ) 0.0 - 5.0 IUnits/L Comment: Interpretive Data Male: < 5 IU/L Non- premenopausal Female: <5 IU/L The Scarlett hCG Beta Quant assay procedure was used. Results from different manufacturers or methods may not be comparable. ??Serial testing should be performed using the same method. Interpretive Data was last revised on 2023 Blood 05/27/2023 2:32 PM CDT 05/27/2023 8:02 PM CDT Mauricio Snell MD LAB BLOOD ORDERABLES Final Result Performing Organization Address City/[facility] Co de Phone Number [facility] Department [place] [address] documented in this encounter Visit Diagnoses Diagnosis History of miscarriage, currently - Primary Threatened SAB (spontaneous ) Unspecified spontaneous without mention of complication Spontaneous miscarriage- Primary Threatened documented in this encounter Care Teams Computer Service Technician Relationship Specialty Start Date End Date Betsy Mendez NP PCP - General Family Medicine 05/19/23 documented as of this encounter
--- OUTSIDE RECORDS SUMMARY | 2024-01-31 21:34 | XMS_ITS | Encounter Summary ---
Author Organization [facility] Address [address] [place] [address]. [place] [address] [place] [address] Care Team Providers Care Paralegal Legal Secretary Name Role Phone Betsy Mendez [facility] Primary Care Provider [phone] Reason for Visit * Reason Comments Abdominal Pain Encounter Details Date Type Department Care Team (Late st Contact Info) Description 05/21/2023 11:23 PM CDT - 05/22/2023 3:57 AM CDT Emergency [facility] [place] [address] Oh Wagner, DO [address] [place] [address] [id number] Abdominal Pain Discharge Disposition: Home or Self Care (Routine Discharge) Social History Tobacco Use Types Packs/Day Years Used Date Smoking Tobacco: Never Smokeless Tobacco: Never Alcohol Use Standard Drinks/Week Comments Not Currently 0 (1 standard drink = 0.6 oz pur e alcohol) Comments Yes Sex and Gender Information Value Date Recorded Sex Assigned at Not on file Legal Sex Female 11:15 AM CDT Gender Identity Not on file Sexual Orientation Not on file documented as of this encounter Last Filed Vital Signs Vital Sign Reading Time Taken Comments Blood Pressure 123/83 05/21/2023 10:55 PM CDT Pulse 100 05/21/2023 10:55 PM CDT Temperature 36.8 ??C (98.2 ??F) 05/21/2023 10:55 PM C DT Respiratory Rate 18 05/21/2023 10:55 PM CDT Oxygen Saturation 100% 05/21/2023 10:55 PM CDT Inhaled Oxygen Concentration - - Weight 122.5 kg (270 lb) 05/21/2023 10:55 PM CDT Height 162.6 cm (5' 4 ) 05/21/2023 10:55 PM CDT Body Mass Index 46.35 05/21/2023 10:55 PM CDT documented in this encounter Discharge Instructions * Discharge Instructions* Oh WagnerDO - 05/22/2023 12:59 AM CDT PLEASE FOLLOW UP WITH YOUR PRIMARY CARE PHYSICIAN IN THE NEXT 2-3 DAYS You were examined and treated today on an emergency basis only. This emergency medical screening examination does not substitute for complete medical care. Please remember that medicine is an art as well as a science and not everything can be addressed during your emergency visit. We try very hard to rule out life- threatening problems here. As such, you may need to address additional problems with a primary care physician. Your visit here is not complete without an examination and follow-up by your primary care physician. It is your responsibility to contact your primary doctor for a follow-up visit as soon as possible. You may also have been given the name of a specialist to contact. It isyour responsibility to contact and make an appointment with the specialist as well. We have not made any appointments for you. Failure to see your doctor or the referring specialist as soon as possible may worsen your medical condition and cause custodial disabilities. Make the appointment today sothere is no delay! Please follow your discharge instructions from today in the meantime. You have a new antibiotic. Please take as directed. STOP the AUGMENTIN. RESPOND TO WARNING SIGNS If your symptoms do not improve within the timeline we discussed, or they become worse, either contact your primary care physician immediately or come back to the emergency department. In the event of an emergency, dial [id number] for an ambulance. Medical emergencies include but are not limited to: sudden headache, fever, bleeding, dizziness, paralysis, chest pain, stomach pain, nausea and vomiting, worsening pain, unable to keep fluids down or any other symptoms that worry you. Remember that the emergency department is open 24 hours a day, every day, and we will be happy to see you at any time. You MUST follow up for further evaluation of all incidental abnormal radiographic and laboratory findings, Have your physician obtain records from this visit and address all the incidental abnormal findings. This may include final results of lab testing, cultures, final x-ray reports which may not have been available during the time of the visit. * Attachments The following attachments cannot be sent through Care Everywhere. * Urinary Tract Infection Discharge Instructions, Adult (Taiwanese) * ??? The First Month (Taiwanese) * ??? The Second Month (Taiwanese) documented in this encounter Medications at Time of Discharge cephALEXin (KEFLEX) 500 MG capsule Take 1 capsule (500 mg total) by mouth 2 (two) times daily for 10 days. 20 capsule 05/22/2023 06/01/2023 documented as of this encounter ED Notes * Francheska Douglass RN - 05/22/2023 1:20 AM CDT Patient okay to discharge after fluid bolus is complete * Oh Wagner DO - 05/22/2023 12:52 AM CDT Emergency Department Note 05/22/23 1:01 AM Chief Complaint : Abdominal Pain Patient is approx 6 weeks and having abdominal pain. Patient denies bleeding. Patient states that she has to wait for a return call for OB appointment. HPI : Drew Reis is a 22-year-old female who presents for upper abdominal pain. She states it started today. It is coming nd going. Sharp pain. She states is 6 weeks . . She has no n/v. Diarrhea since antibiotics for her throat. Has not been able to eat or drink much due to sore throat. Had spotting one time a few days ago. Nothing since. She has to wait for return call OB appointment. History Chief Complaint Patient presents with Abdominal Pain HPI Past Medical History: Diagnosis Date Disease of thyroid gland Past Surgical History: Procedure Laterality Date ABDOMINAL SURGERY LASER SURGERY OF EYE No family history on file. Social History Tobacco Use Smoking status: Never Smokeless tobacco: Never Vaping Use Vaping Use: Never used Substance Use Topics Alcohol use: Not Currently Drug use: Not Currently Review of Systems Review of systems completed. Abnormals are noted above in HPI. Physical Exam Vital Signs: Filed Vitals: 05/21/23 2255 BP: 123/83 Pulse: 100 Resp: 18 Temp: 98.2 ??F (36.8 ??C) TempSrc: Temporal SpO2: 100% Weight: 122.5 kg (270 lb) Height: 1.626 m (5' 4 ) GENERAL: Patient is conscious alert and oriented x3 and in no acute distress. HEENT: Head is normocephalic and atraumatic. Extraocular muscles are intact. Oral mucosa are moist and without lesion. NECK: Trachea is midline. No meningeal signs. LUNGS: Lungs are clear to auscultation bilaterally. There is good respiratory effort. HEART: Regular rate and rhythm, no murmur. There is no gallop or rub. No pitting edema. ABDOMEN: Soft and nontender to palpation. Bowel sounds are normal in all quadrants. There is no guarding or rebound. There are no masses. No CVA tenderness. MUSCULOSKELETAL: Moves all extremities x4. There is no obvious deformity. Distal pulses are intact.No spinal process tenderness. SKIN: Exposed skin shows no obvious erythema. Skin is warm and dry. There is no rash. NEUROLOGIC: Patient is conscious, alert and oriented x3. No focal neurologic defect is noted. PSYCH: Normal affect No results found for this visit on 05/21/23. Labs Reviewed CBC W/DIFF AUTOMATED - Abnormal; Notable for the following components: Result Value WBC 12.33 (*) ABS. MONOCYTES 1.48 (*) All other components within normal limits COMPREHENSIVE METABOLIC PANEL - Abnormal; Notable for the following components: TOTAL PROTEIN S/P/B 8.7 (*) A/G RATIO 0.7 (*) All other components within normal limits URINALYSIS - Abnormal; Notable for the following components: LEUKOCYTES (U) 25 (*) KETONES (U) 60 (*) RBC/HPF 11 (*) All other components within normal limits POCT URINE (BACK OFFICE) - Abnormal; Notable for the following components: URINE HCG TEST POSITIVE (*) All other components within normal limits LIPASE HCG QUANT (SERUM)-CHORIONIC GONADOTROPIN CULTURE URINE No orders to display ED Course Medical Decision Making She will need to f/u with OB. We will change her ABX to cover for UTI as well as her sore throat. Ultrasound not performed due to no vaginal bleeding or discharge, she had recently developed diarrhea after starting antibiotics. Her pain was upper and nontender on exam. Her pain resolved with fluids. She had an upcoming appt with OB. -Patient seen and evaluated, available studies reviewed -Prior available records reviewed, triage notes reviewed. Medications dextrose 5 %-sodium chloride 0.9 % infusion (has no administration in time range) dextrose 5 %-sodium chloride 0.9 % infusion (has no administration in time range) New Prescriptions CEPHALEXIN (KEFLEX) 500 MG CAPSULE Take 1 capsule (500 mg total) by mouth 2 (two) times daily for 10 days. Clinical impression: SNOMED CT(R) 1. Generalized abdominal pain GENERALIZED ABDOMINAL PAIN 2. Less than 8 weeks gestation of ([facility]) FIRST TRIMESTER 3. Urinary tract infection with hematuria, site unspecified URINARY TRACT INFECTIOUS DISEASE Disposition: Discharge TIRE BUSTER This examination was transcribed using the [employer] voice recognition system without human school of nursing director. In an effort to expedite patient care, this report has not been adjusted for typographical, grammatical, and syntax by a trained rn medical surgical. OH WAGNER DO 05/22/2023 Oh Wagner DO 05/28/23 0247 Oh Wagner DO 06/16/23 0556 * Avni Holliday PA-C - 05/21/2023 10:57 PM CDTSummary: abdominal pain [place], [place] EMERGENCY DEPARTMENT ENCOUNTER Medical Screening Examination 05/21/23 10:57 PM Chief Complaint : No chief complaint on file. HPI : Drew Reis is a 22-year-old female who presents c/o sharp left sided severe pain tonight, lower abdomen. Is 6 weeks , has not had care or US. Denies vaginal bleeding Vital Signs: Filed Vitals: 05/21/23 2255 BP: 123/83 Pulse: 100 Resp: 18 Temp: 98.2 ??F (36.8 ??C) TempSrc: Temporal SpO2: 100% Weight: 122.5 kg (270 lb) Height: 1.626 m (5' 4 ) Physical exam: A brief physical exam was completed to facilitate/expedite patient care. Ruth findings include: stable Plan: Labs were ordered to facilitate patient care. AVNI HOLLDIAY PA-C 05/21/2023 Avni Holliday PA-C 05/21/23 2258 Cosigned by Oh Wagner DO at 05/22/2023 5:29 AM CDT Associated attestation - Oh Wagner DO - 05/22/2023 5:29 AM CDT ED Attestation I did not see this patient. However, I was personally available for consultation in the ED for thispatient if the Advanced Practice Provider (TRUONG) needed any assistance. The TRUONG evaluated the patient independently and completed their own examination, documentation, and disposition. * Latrice Acosta RN - 05/21/2023 10:57 PM CDT Patient is approx 6 weeks and having abdominal pain. Patient denies bleeding. Patient states that she has to wait for a return call for OB appointment. documented in this encounter Plan of Treatment Not on file documented as of this encounter Procedures Procedure Name Priority Date/Time Associated Diagnosis Comments HC URINALYSIS AUTO W/O MICRO STAT 05/21/2023 11:50 PM CDT URINE BACTERIA CULTURE Routine 11:50 PM CDT POCT URINE (BACK OFFICE) STAT 05/21/2023 11:48 PM CDT COMPREHENSIVE METABOLIC PANEL STAT 05/21/2023 11:40 PM CDT HCG QUANT (SERUM)-CHORIONIC GONADOTROPIN STAT 05/21/2023 11:40 PM CDT CBC W/DIFF AUTOMATED STAT 05/21/2023 11:40 PM CDT LIPASE STAT 05/21/2023 11:40 PM CDT documented in this encounter Results * CULTURE URINE (05/21/2023 11:50 PM CDT) SPEC DESCRIPTION URINE CLEAN CATCH 05/22/2023 12:05 AM CDT [facility] SPECIAL REQUESTS NO SPECIAL REQUEST 05/22/2023 12:05 AM CDT [facility] CULTURE RESULT NO GROWTH 2 DAYS 05/24/2023 8:32 AM CDT [facility] URINE SPECIMEN OBTAINED BY CLEAN CATCH PROCEDURE / Unknown 05/21/2023 11:50 PM CDT 05/22/2023 12:04 AM CDT Avni Holliday PA-C MICROBIOLOGY - GENERAL ORDJosette SOLANO Final Result [facility] [address] [place] [address], * (ABNORMAL) URINALYSIS (05/21/2023 11:50 PM CDT) SPECIMEN TYPE URINE CLEAN CATCH 05/21/2023 11:49 PM CDT [facility] COLOR (U) YELLOW 05/22/2023 12:05 AM CDT [facility] TRANSPARENCY CLEAR 05/22/2023 12:05 AM CDT [facility] SPECIFIC GRAVITY (U) 1.020 1.001 - 1.030 05/22/2023 12:05 AM CDT [facility] U PH 5.5 5.0 - 9.0 05/22/2023 12:05 AM CDT [facility] LEUKOCYTES (U) 25(A) NEGATIVE 05/22/2023 12:05 AM T [facility] NITRITES NEGATIVE NEGATIVE 05/22/2023 12:05 AM T [facility] PROTEIN RANDOM (U) 10 <30 MG/DL 05/22/2023 12:05 AM T [facility] GLUCOSE (U) NORMAL NORMAL MG/DL 05/22/2023 12:05 AM T [facility] KETONES MG/DL (U) 60(A) NEGATIVE MG/DL 05/22/2023 12:05 AM T [facility] UROBILINOGEN NORMAL NORMAL MG/DL 05/22/2023 12:05 AM [facility] BILIRUBIN (U) NEGATIVE NEGATIVE MG/DL 05/22/2023 12:05 AM T [facility] BLOOD (U) NEGATIVE NEGATIVE 05/22/2023 12:05 AM [facility] CULTURE & SENSITIVITY INDICATED? SPECIMEN SETUP FOR CULTURE 05/22/2023 12:05 AM T [facility] MUCUS RARE /LPF 05/22/2023 12:05 AM [facility] WBC/HPF 5 <6 /HPF 05/22/2023 12:05 AM T [facility] RBC/HPF 11(H) <6 /HPF 05/22/2023 12:05 AM T [facility] SQUAMOUS EPITHELIALS RARE /HPF 05/22/2023 12:05 AM T [facility] URINE SPECIMEN OBTAINED BY CLEAN CATCH PROCEDURE / Unknown 05/21/2023 11:50 PM CDT us Avin Holliday PA-C URINE ORDERABLES Final Resu lt [facility] [address] [place] [address], * (ABNORMAL) POCT urine (05/21/2023 11:48 PM CDT) URINE HCG TEST POSITIVE(A ) Internal Control: VALID Avni Holliday PA-C POINT OF CARE TEST ORDERABL ES Final Result * HCG QUANT (SERUM)-CHORIONIC GONADOTROPIN (05/21/2023 11:40 PM CDT) HCG QUANTITATIVE 8,492 MIU/ML 05/22/19 24 12:36 AM CDT [facility] Comment: WEEKS OF ? REFERENCE RANGES Non- female ?< or = 2 ? 0.2 - 1 ? 5 - 50 ? 1 - 2 ? 50 - 500 ? 2 - 3 ? 100 - 5000 ? 3 - 4 ? 500 - 10,000 ? 4 - 5 ? 1000 - 50,000 ? 5 - 6 ? 10,000 - 100,000 ? 6 - 8 ? 15,000 - 200,000 ? 2 - 3 MONTHS ?10,000 - 100,000 05/21/2023 11:4 0 PM CDT us Avni Holliday PA-C LABORATORY Final Resul t [facility] [address] [place] [address], [place] [phone] * LIPASE (05/21/2023 11:40 PM CDT) LIPASE 18 13 - 75 UNITS/L 05/22/2023 12:32 AM CDT [facility] 05/21/2023 11:4 0 PM CDT Avni Holliday PA-C LABORATORY Final Resul t [facility] [address] [place] [id number], [place] [phone] * (ABNORMAL) COMPREHENSIVE METABOLIC PANEL (05/21/2023 11:40 PM CDT) Pathologist [facility] GLUCOSE 89 70 - 99 MG/DL 05/22/2023 12:32 AM CDT [facility] BUN 9 7 - 18 MG/DL 05/22/2023 12:32 AM CDT [facility] CREATININE S/P/B 0.59 0.55 - 1.02 MG/DL 05/22/2023 12:32 AM CDT [facility] SODIUM S/P/B 137 136 - 145 MMOL/L 05/22/2023 12:32 AM CDT [facility] POTASSIUM S/P/B 3.8 3.5 - 5.1 MMOL/L 05/22/2023 12:32 AM CDT [facility] Comment:SLIGHT HEMOLYSIS, RE SULT MAY BE AFFECTED. CHLORIDE S/P/B 104 100 - 108 MMOL/L 05/22/2023 12:32 AM CDT [facility] CO2 24.8 21 - 32 MMOL/L 05/22/2023 12:32 AM CDT [facility] CALCIUM S/P/B 9.8 8.5 - 10.1 MG/DL 05/22/2023 12:32 AM T [facility] BILIRUBIN TOTAL S/P/B 0.4 0.2 - 1.2 MG/DL 05/22/2023 12:32 AM [facility] Comment: THIS ASSAY IS NOT RECOMMENDED FOR PATIENTS UNDERGOING TREATMENT WITH ELTROMBOPAG DUE TO THE POTENTIAL FOR FALSELY ELEVATED RESULTS. TOTAL PROTEIN S/P/B 8.7(H) 6.4 - 8.2 G/DL 05/22/2023 12:32 AM T [facility] ALBUMIN S/P/B 3.5 3.4 - 5.0 G/DL 05/22/2023 12:32 AM T [facility] AST 22 15 - 37 U/L 05/22/2023 12:32 AM [facility] Comment:SLIGHT HEMOLYSIS, RE SULT MAY BE AFFECTED. ALT 26 14 - 55 U/L 05/22/2023 12:32 AM T [facility] ALKALINE PHOSPHATASE S/P/B 51 50 - 136 U/L 05/22/2023 12:32 AM [facility] ANION GAP 8.2 5 - 15 MMOL/L 05/22/2023 12:32 AM [facility] BUN CREATININE RATIO 15.3 6 - 26 05/22/2023 12:32 AM [facility] A/G RATIO 0.7(L) 1.0 - 2.0 RATIO 05/22/2023 12:32 AM [facility] GFR ESTIMATE >90 >90 ML/MIN/1.7 3 M2 05/22/2023 12:32 AM [facility] Comment: NOTE: eGFR is not calculated for patients <18 years of age. This is an estimated GFR calculation using the new CKD EPI creatinine equation without race and so does not require a correction factor for race. This estimated GFR should not be used for calculating drug doses. 05/21/2023 11:4 0 PM CDT Avni Holliday PA-C LABORATORY Final Resul t [facility] [address] [place] [address], * (ABNORMAL) CBC W/DIFF AUTOMATED (05/21/2023 11:40 PM CDT) WBC 12.33(H) 4.5 - 11.0 x10'3/uL 05/22/2023 12:29 AM CDT [facility] RBC 4.78 4.20 - 5.40 x10'6/uL 05/22/2023 12:29 AM CDT [facility] HGB 14.1 12.0 - 16.0 G/DL 05/22/2023 12:29 AM CDT [facility] HCT 41.1 38.0 - 48.0 % 05/22/2023 12:29 AM CDT [facility] MCV 86.0 81.0 - 99.0 FL 05/22/2023 12:29 AM CDT [facility] MCH 29.5 27.0 - 31.0 PG 05/22/2023 12:29 AM CDT [facility] MCHC 34.3 32.0 - 36.0 G/DL 05/22/2023 12:29 AM CDT [facility] RDW 12.7 11.5 - 14.5 % 05/22/2023 12:29 AM CDT [facility] PLT 310 130 - 400 x10'3/uL 05/22/2023 12:29 AM CDT [facility] MPV 11.6 9.3 - 12.2 FL 05/22/2023 12:29 AM CDT [facility] DIFFERENTIAL TYPE MANUAL DIFFERENTIAL 05/22/2023 12:30 AM CDT [facility] SEG NEUTROPHILS 60 % 12:30 AM CDT [facility] LYMPHOCYTES 28 % 05/22/2023 12:30 AM CDT [facility] MONOCYTES 12 % 05/22/2023 12:30 AM CDT [facility] ABS. NEUTROPHILS 7.40 1.80 - 7.70 x10'3/uL 05/22/2023 12:30 AM CDT [facility] ABS. LYMPHOCYTES 3.45 1.00 - 4.80 x10'3/uL 05/22/2023 12:30 AM CDT [facility] ABS. MONOCYTES 1.48(H) 0.24 - 0.86 x10'3/uL 05/22/2023 12:30 AM CDT [facility] RBC MORPHOLOGY RBC MORPHOLOGY APPEARS NORMAL. SLIDE REVIEWED. 05/22/2023 12:30 AM CDT [facility] PLT EST. ADEQUATE 05/22/2023 12:30 AM CDT [facility] 05/21/2023 11:4 0 PM CDT us Avni Holliday PA-C LABORATORY Final Resul t [facility] [address] [place] [address], [place] [phone] documented in this encounter Visit Diagnoses Diagnosis Generalized abdominal pain- Primary Abdominal pain, generalized Less than 8 weeks gestation of ([facility]) state, incidental Urinary tract infection with hematuria, site unspecified documented in this encounter Administered Medications Inactive Administered Medications - up to 3 most recent administrations Medication Order MAR Action Action Date Dose Rate Site dextrose 5 %-sodium chloride 0.9 % infusion at 999 mL/hr, Intravenous, Continuous, Starting on 05/22/23 at 0100, Until 05/22/23 at 0603 New Bag 05/22/2023 3:05 AM CDT 999 mL/hr dextrose 5 %-sodium chloride 0.9 % infusion at 999 mL/hr, Intravenous, Continuous, Starting on 05/22/23 at 0100, Until 05/22/23 at 0603 New Bag 05/22/2023 2:33 AM CDT 999 mL/hr documented in this encounter Active and Recently Administered Medications Times are shown in CDT. Continuous Medication Order 05/20/2023 05/21/2023 05/22/2023 dextrose 5 %-sodium chloride 0.9 % infusion at 999 mL/hr, Intravenous, Continuous, Starting on 05/22/23 at 0100, Until 05/22/23 at 0603 0305 (New Bag - Prov ider: Francheska Douglass RN) dextrose 5 %-sodium chloride 0.9 % infusion at 999 mL/hr, Intravenous, Continuous, Starting on 05/22/23 at 0100, Until 05/22/23 at 0603 0233 (New Bag - Prov ider: Francheska Douglass RN) documented in this encounter Care Teams Paralegal Legal Secretary Relationship Specialty Start Date End Date Betsy Mendez FNP-EVELYN PCP - General NURSE PRACTITIONER 05/18/23 documented as of this encounter
--- OUTSIDE RECORDS SUMMARY | 2024-01-31 21:34 | XMS_ITS | Encounter Summary ---
Author Organization [facility] Healthcare Address [address] [place] [id number] Care Team Providers Care Dedicated Owner Operator Name Role Phone Betsy Mendez NP Primary Care Provider [phone] Encounter Details Date Type Department Care Team (Late st Contact Info) Description 05/27/2023 2:30 PM CDT Lab [facility] Medical Group Outpatient Lab at [address] [id number] Social History Tobacco Use Types Packs/Day Years [...] on file Legal Sex Female 10:38 AM FIREARMS EXPERT Gender Identity Female 01/23/2024 9:47 AM FIREARMS EXPERT Sexual Orientation Straight 01/23/2024 9: 47 AM FIREARMS EXPERT documented as of this encounter Plan of Treatment Not on file documented as of this encounter Visit Diagnoses Not on filedocumented in this encounter Care Teams Dedicated Owner Operator Relationship Specialty Start Date End Date Betsy Mendez NP PCP - General Family Medicine 05/19/23 documented as of this encounter
--- OUTSIDE RECORDS SUMMARY | 2024-01-31 21:34 | XMS_ITS | Clinical Summary ---
Author Organization [address] Address [address] [place] [address] Care Team Providers Care Stringed Instrument Repairer Name Role Phone MendezBetsy moran MIGUEL Primary Care Provider [phone] Allergies No known active allergies Medications al & mag hydroxide with simethicone-dip henhydramine-li docaine (MAGIC MOUTHWASH) suspension 1-1-1 Swish and spit 10 mL every 4 (four) hours as needed (throat pain) 240 mL 05/19/2023 Active levothyroxine (SYNTHROID) 50 mcg tablet Take 1 tablet (50 mcg total) by mouth daily 90 tablet 1 05/20/2023 Active vit 35-mpss-zcoza-d dupree 18-1-350 mg capsuleIndicati ons:Less than 8 weeks gestation of Take 1 capsule by mouth daily 100 capsule 3 05/20/2023 Active Active Problems Problem Noted Date Diagnosed Date SVT (supraventricular tachycardia) 05/19/2023 Overview (05/19/2023): Has had no further episodes . Had two episodes last summer Positive test 05/19/2023 Assessment & Plan (05/19/2023 3:13 PM CDT): Will check a quantitative HCG. Once is confirmed we can send a referral. I did give patient a couple different options in the area including [facility] versus [facility] or [facility] Pharyngitis 05/19/2023 Assessment & Plan (05/19/2023 3:17 PM CDT): Monospot negative in office. I am going to test for Sadaf bar virus. In the interim severity exam dictate that she continue on the Augmentin twice daily until gone as given to her by previous ER. I gave her magic mouthwash to swish and spit to numb her throat to continue to get down liquids and soup and Jell-O as she has been eating. Cautions for dehydration given. She may continue to take Tylenol for throat pain. Will check labs today and I cautioned her to return if symptoms become more severe Acquired hypothyroidism 05/19/2023 Assessment & Plan (05/19/2023 3:17 PM CDT): History of. She is to continue her levothyroxine 25 mcg once daily. Will check a TSH level today Immunizations Name Administration Dates Next Due Influenza, Unspecified 05/19/2023(Deferr ed: Patient Refused),02/14/2022(Deferred: Patient Refused) Surgical History Surgery Date Site/Laterality Comments OVARIAN CYST REMOVAL EYE SURGERY Medical History Medical History Date Comments SVT (supraventricular tachycardia) (HCC) H/O one miscarriage <6 weeks Family History Medical History Relation Name Comments No Known Problems Brother 1 No Known Problems Brother 2 No Known Problems Father Asthma Mother No Known Problems Sister Relation Name Status Comments Brother 1 Brother 2 Alive Father Alive Mother Alive Sister Social History Tobacco Use Types Packs/Day Years Used Date Smoking Tobacco: Never Smokeless Tobacco: Never Tobacco Cessation:Counseling Given: Not Answered PHQ-2 Answer Date Recorded PHQ-2 Total Score (If total score is 3 or more points, staff should administer the PHQ-9) 0 05/19/2023 Personal Safety Answer Date Recorded Getting School Help Needed Not on file 04/06 Comments Unknown Sex and Gender Information Value Date Recorded Sex Assigned at Not on file Legal Sex Female 10:38 AM TRANSITIONAL CARE LIAISON Gender Identity Female 01/23/2024 9:47 AM TRANSITIONAL CARE LIAISON Sexual Orientation Straight 01/23/2024 9: 47 AM TRANSITIONAL CARE LIAISON Obstetrics History Para Term AB IAB SAB Ectopic Multiple Livin g Live Births 2 0 0 0 2 0 2 0 0 0 0 Date Outcome GA Total Labor Labor/2nd/3rd Weight Sex Type Anes PTL Mary A1 A5 Name Clin SAB 023 SAB 4w0d SAB Last Filed Vital Signs Vital Sign Reading Time Taken Comments Blood Pressure 124/80 05/27/2023 2:40 PM CDT Pulse 101 05/19/2023 1:42 PM CDT Temperature 36.8 ??C (98.3 ??F) 05/19/2023 1:42 PM CD T Respiratory Rate - - Oxygen Saturation 98% 05/19/2023 1:42 PM CDT Inhaled Oxygen Concentration - - Weight 125.1 kg (275 lb 14.4 oz) 05/27/2023 2:40 PM CDT Height 162.6 cm (5' 4 ) 05/27/2023 2:40 PM CDT Body Mass Index 47.36 05/27/2023 2:40 PM CDT Plan of Treatment Health Maintenance Due Date Last Done Comments Cervical Cancer Screening 2000 Hepatitis C Screening 2000 DTaP/Tdap/Td Vaccine (1 - Tdap) 12/11/2011 Varicella Vaccines (1 of 2 - 13+ 2-dose series) 2013 HPV Vaccines (1 - 3-dose series) 12/11/2015 Meningococcal B Vaccine (1 o f 2 - Patient Seeks Protection) 2016 Hepatitis B Screening 2018 Regular Well Visit/Exam 18-64 2018 Influenza Vaccine (#1) 2023 Depression Screening 05/18/2024 05/19/2023 Pneumococcal vaccine <65 Aged Out No longer eligible based on patient's age to complete this topic Insurance [facility] AETNA [facility] Care Teams Stringed Instrument Repairer Relationship Specialty Start Date End Date Betsy Mendez NP PCP - General Family Medicine 05/19/23
--- OUTSIDE RECORDS SUMMARY | 2024-01-31 21:34 | XMS_ITS | Encounter Summary ---
Author Organization [facility] Healthcare Address [address] [place] [address] Care Team Providers Care Service Desk Manager Name Role Phone Betsy Mendez NP Primary Care Provider [phone] Reason for Visit * Reason Comments Ultrasound * Diagnostic Imaging (Routine) - Closed Specialty Diagnoses / Procedures Referred By Matt t Referred To Contact Diagnoses Threatened Procedures US OB Transvaginal Mauricio Snell MD [address] [place] [address] [address], [place] [address] Phone: tel: fax: Jimbo GRAY [address], [place] [address] Phone: tel: fax: Referral ID Status Reason Start Date Expiration Date Visits Re quested Visits Authorized [id number] Closed 05/31/2023 06/29/2024 1 1 Encounter Details Date Type Department Care Team (Latest Contact Info) Description 06/01/2023 3:00 PM CDT Ancillary Procedure Jimbo GRAY [address], [place] [address] Spontaneous miscarriage (Primary Dx); Threatened Social History Tobacco Use Types Packs/Day Years [...] on file Legal Sex Female 10:38 AM RESEARCH PHARMACIST Gender Identity Female 01/23/2024 9:47 AM RESEARCH PHARMACIST Sexual Orientation Straight 01/23/2024 9: 47 AM RESEARCH PHARMACIST documented as of this encounter Miscellaneous Notes * Result Encounter Note - Mauricio Snell MD - 06/05/2023 1:17 PM CDT I discussed result with patient. documented in this encounter Plan of Treatment Not on file documented as of this encounter Procedures Procedure Name Priority Date/Time Associated Diagnosis Comments US OB TRANSVAGINAL Schedule Routine, Read Routine (OP Routine) 06/01/2023 4:17 PM CDT Threatened documented in this encounter Results * (ABNORMAL) hCG, blood, quantitative (06/02/2023 2:08 PM CDT) hCG, quant 1,848.0(H ) 0.0 - 5.0 IUnits/L Comment: Interpretive Data Male: < 5 IU/L Non- premenopausal Female: <5 IU/L The Scarlett hCG Beta Quant assay procedure was used. Results from different manufacturers or methods may not be comparable. ??Serial testing should be performed using the same method. Interpretive Data was last revised on 2023 Blood 06/02/2023 2:08 PM CDT 06/03/2023 9:05 AM CDT Mauricio Snell MD LAB BLOOD ORDERABLES Final Result [facility] [address] Department [place] [address] * US OB Transvaginal (06/01/2023 [...] MD IMG OB US PROCEDURES Final Result documented in this encounter Visit Diagnoses Diagnosis Spontaneous miscarriage- Primary Threatened documented in this encounter Care Teams Service Desk Manager Relationship Specialty Start Date End Date Betsy Mendez NP PCP - General Family Medicine 05/19/23 documented as of this encounter
--- OUTSIDE RECORDS SUMMARY | 2024-01-31 21:34 | XMS_ITS | CONTINUITY OF CARE DOCUMENT ---
Author Name lora paulino Address Unknown Organization [facility] Address [address] [place] [address] Phone [phone] Care Team Providers Care Career Information Specialist Name Role Phone Jacob Juarez MD Unavailable TANNA CARDENAS MD Unavailable [phone] INSURANCE PROVIDERS Payer name Policy type / Coverage type [place] red democrat [place] AETNA [facility] Medicaid [id number]
--- OUTSIDE RECORDS SUMMARY | 2024-01-31 21:34 | XMS_ITS | Clinical Summary ---
Author Organization [facility] Address [address] [place] [address]. [place] [address] [place] [address] Care Team Providers Care Dependency Case Manager Name Role Phone Betsy Menedz [facility] Primary Care Provider [phone] Allergies No known active allergies Medications No known medications Social History Tobacco Use Types Packs/Day Years Used Date Smoking Tobacco: Never Smokeless Tobacco: Never Alcohol Use Standard Drinks/Week Comments Not Currently 0 (1 standard drink = 0.6 oz pur e alcohol) Comments Yes Sex and Gender Information Value Date Recorded Sex Assigned at Not on file Legal Sex Female 11:15 AM CDT Gender Identity Not on file Sexual Orientation Not on file Last Filed Vital Signs Vital Sign Reading [...] Mass Index 46.35 05/21/2023 10:55 PM CDT Plan of Treatment Health Maintenance Due Date Last Done Comments Cervical Cancer Screening Pa p Smear (Age 21 to 29) Every 3 Years 2000 Cervical Cancer Screening 2000 Annual Physical 12/11/2003 HPV Vaccines (1 - 3-dose series) 12/11/2015 Hepatitis C 2018 DTaP, Tdap and Td Vaccines ( 1 - Tdap) 12/11/2019 Hepatitis B Vaccines (1 of 3 - 19+ 3-dose series) 12/11/2019 COVID-19 Vaccine (1 - 2023-2 5 season) 2023 Influenza Adult (#1) 2023 RSV Immunization or 60+ Years (1 - 1-dose 60+ series) 2060 Meningococcal Vaccine Aged Out No evert louis eligible based on patient's age to complete this topic Pneumococcal Vaccine: Pediat rics (0 to 5 Years) and At-Risk Patients (6 to 64 Years) Aged Out No longer eligible b ased on patient's age to complete this topic RSV Immunizations Under 20 Months Aged Out No longer eligible based on patient's age to complete this topic [place] [address] Care Teams Dependency Case Manager Relationship Specialty Start Date End Date Betsy Mendez, CLIENT EXPERIENCE SPECIALIST- PCP - General NURSE PRACTITIONER 05/18/23
--- OUTSIDE RECORDS SUMMARY | 2024-01-31 21:34 | XMS_ITS | Encounter Summary ---
Author Organization [facility] Healthcare Address [address] [place] [address] Care Team Providers Care Jig Builder Helper Name Role Phone Betsy Mendez MIGUEL Primary Care Provider [phone] Encounter Details Date Type Department Care Team (Late st Contact Info) Description 06/01/2023 Telephone [employer] [address] [place] [address] [address] [place] [address] Mauricio Snell MD [address] [place] [address] [address] [place] [address] Social History Tobacco Use Types Packs/Day Years [...] on file Legal Sex Female 10:38 AM ANTITANK ASSAULT GUNNER Gender Identity Female 01/23/2024 9:47 AM ANTITANK ASSAULT GUNNER Sexual Orientation Straight 01/23/2024 9: 47 AM ANTITANK ASSAULT GUNNER documented as of this encounter Miscellaneous Notes * Telephone Encounter - Mauricio Snell MD - 06/01/2023 4:21 PM CDT I spoke with patient. Nothing seen today on transvaginal ultrasound. She did have cramping and heavy bleeding last night and passed possible tissue. I discussed that it sounds as though she may have miscarried last night. Will check a quantitative hCG now and call with results. documented in this encounter Plan of Treatment Not on file documented as of this encounter Visit Diagnoses Not on filedocumented in this encounter Care Teams Jig Builder Helper Relationship Specialty Start Date End Date Betsy Mendez NP PCP - General Family Medicine 05/19/23 documented as of this encounter
--- OUTSIDE RECORDS SUMMARY | 2024-01-31 21:34 | XMS_ITS | Encounter Summary ---
Author Organization [facility] Healthcare Address [address] [place] [address] Care Team Providers Care Structural Draftsman Name Role Phone Betsy Mendez NP Primary Care Provider [phone] Encounter Details Date Type Department Care Team (Late st Contact Info) Description 06/06/2023 1:00 PM CDT Lab [facility] Outpatient Lab at [address] [address] Acquired hypothyroidism (Primary Dx); Positive test Social History Tobacco Use Types Packs/Day Years [...] on file Legal Sex Female 10:38 AM PAPER STACKER Gender Identity Female 01/23/2024 9:47 AM PAPER STACKER Sexual Orientation Straight 01/23/2024 9: 47 AM PAPER STACKER documented as of this encounter Plan of Treatment Not on file documented as of this encounter Visit Diagnoses Diagnosis Acquired hypothyroidism- Primary Unspecified hypothyroidism Positive test examination or test, positive result documented in this encounter Care Teams Structural Draftsman Relationship Specialty Start Date End Date Betsy Mendez NP PCP - General Family Medicine 05/19/23 documented as of this encounter
--- OUTSIDE RECORDS SUMMARY | 2024-01-31 21:34 | XMS_ITS | Referral Summary ---
Author Organization [address] Address [address] [place] [address] Care Team Providers Care Harvest Field Ticketer Name Role Phone MendezBetsy moran MIGUEL Primary Care Provider [phone] Allergies No known active allergies Medications al & mag hydroxide with simethicone-dip henhydramine-li docaine (MAGIC MOUTHWASH) suspension 1-1-1 Swish and spit 10 mL every 4 (four) hours as needed (throat pain) 240 mL 05/19/2023 Active levothyroxine (SYNTHROID) 50 mcg tablet Take 1 tablet (50 mcg total) by mouth daily 90 tablet 1 05/20/2023 Active vit 61-qqbj-mdszp-d dupree 18-1-350 mg capsuleIndicati ons:Less than 8 [...] couple different options in the area including [facility] versus [facility] or [facility] Pharyngitis 05/19/2023 Assessment & Plan (05/19/2023 [...] Unspecified 05/19/2023(Deferr ed: Patient Refused),02/14/2022(Deferred: Patient Refused) Social History Tobacco Use Types Packs/Day Years [...] on file Legal Sex Female 10:38 AM PRENATAL GENETIC COUNSELOR Gender Identity Female 01/23/2024 9:47 AM PRENATAL GENETIC COUNSELOR Sexual Orientation Straight 01/23/2024 9: 47 AM PRENATAL GENETIC COUNSELOR Last Filed Vital Signs Vital Sign Reading [...] 05/27/2023 2:40 PM CDT Plan of Treatment Not on file Insurance AETNA [facility]TER [facility] [place] AET[place] BETTER [facility] Care Teams Harvest Field Ticketer Relationship Specialty Start Date End Date Betsy Mendez NP PCP - General Family Medicine 05/19/23
--- OUTSIDE RECORDS SUMMARY | 2024-01-31 21:34 | XMS_ITS | Encounter Summary ---
Author Organization [facility] Healthcare Address [address] [place] [address] Care Team Providers Care Head Machine Feeder Name Role Phone Betsy Mendez NP Primary Care Provider [phone] Encounter Details Date Type Department Care Team (Late st Contact Info) Description 06/02/2023 2:00 PM CDT Lab [facility] Medical Group Outpatient Lab at [address] [address] Positive test (Primary Dx) Social History Tobacco Use Types Packs/Day Years [...] on file Legal Sex Female 10:38 AM INTERN ARCHITECT Gender Identity Female 01/23/2024 9:47 AM INTERN ARCHITECT Sexual Orientation Straight 01/23/2024 9: 47 AM INTERN ARCHITECT documented as of this encounter Plan of Treatment Not on file documented as of this encounter Visit Diagnoses Diagnosis Positive test- Primary examination or test, positive result documented in this encounter Care Teams Head Machine Feeder Relationship Specialty Start Date End Date Betsy Mendez NP PCP - General Family Medicine 05/19/23 documented as of this encounter
--- OUTSIDE RECORDS SUMMARY | 2024-01-31 21:34 | XMS_ITS | Patient Health Record ---
Author Organization [facility] [place] Address [address] [address] [place] [address] Care Team Providers Care Power Builder Developer Name Role Phone [email or web address] INACTIVE, zzOversi INACTIVE Unavail able Unavailable Allergies No Known Allergies Reason For Referral No Information Medications Medication SIG (Take, Route, Frequency, Duration) Notes Start Date End Date Status Sertraline HCl 50 MG 1 tablet Orally Onc e a day for 30 day(s) Active Levothyroxine Sodium 50 MCG 1 tablet in the morning on an empty stomach Orally Once a day for 30 day(s) Active Social History Tobacco Use: Social History Observation Description Date Details (start date - stop date) Never Smoker NA - NA Tobacco Use: Question Answer Notes Are you a: nonsmoker Problems Problem Type SNOMED Code ICD Code Onset Dates Problem Status W/U Status Risk Notes Problem care (887083975) Supervision of other normal (Z34.80) Active confirm Plan Of Treatment No Information Insurance Providers Payer Name Payer Address Payer Phone Subscriber Number Group Number Insured Name Patient Relationship to Insured Coverage Start Date Coverage End Date DO NOT USE INVALID BC/BS, [employer] [address] [place] [address] [id number] JANETH KAY 18 SELF / SAME PATIENT
--- OUTSIDE RECORDS SUMMARY | 2024-01-31 21:34 | XMS_ITS | Encounter Summary ---
Author Organization [facility] Healthcare Address [address] [place] [address] Care Team Providers Care Designer Writer Name Role Phone Betsy Mendez NP Primary Care Provider [phone] Encounter Details Date Type Department Care Team (Latest Contact Info) Description 06/02/2023 2:08 PM CDT - 06/02/2023 11:59 PM CDT Hospital Encounter [address] [id number] Spontaneous miscarriage Discharge Disposition: Discharge to home or self care Social History Tobacco Use Types Packs/Day Years [...] on file Legal Sex Female 10:38 AM RECTIFIER OPERATOR Gender Identity Female 01/23/2024 9:47 AM RECTIFIER OPERATOR Sexual Orientation Straight 01/23/2024 9: 47 AM RECTIFIER OPERATOR documented as of this encounter Medications at Time of Discharge al & mag hydroxide with simethicone-diphe nhydramine-lidoca ine (MAGIC MOUTHWASH) suspension 1-1-1 Swish and spit 10 mL every 4 (four) hours as needed (throat pain) 240 mL 05/19/2023 levothyroxine (SYNTHROID) 50 mcg tablet Take 1 tablet (50 mcg total) by mouth daily 90 tablet 1 05/20/2023 vit 92-xjnn-uteqp-dha 18-1-350 mg capsuleIndication s:Less than 8 weeks gestation of Take 1 capsule by mouth daily 100 capsule 3 05/20/2023 documented as of this encounter Discharge Disposition Disposition Code Departure Means Destination Discharge to home or self care documented in this encounter Miscellaneous Notes * Result Encounter Note - Mauricio Snell MD - 06/02/2023 11:59 PM CDT Please call patient with results. QHCG is coming down consistent with history of miscarriage. Let'srecheck level Tuesday to assure is resolving. documented in this encounter Plan of Treatment Not on file documented as of this encounter Procedures Procedure Name Priority Date/Time Associated Diagnosis Comments HCG, BLOOD, QUANTITATIVE Routine 06/02/2023 2:08 PM CDT Spontaneous miscarriage documented in this encounter Results * (ABNORMAL) hCG, blood, quantitative (06/02/2023 2:08 PM CDT) Pathologist [facility] hCG, quant 1,848.0(H ) 0.0 - 5.0 [...] 2:08 PM CDT 06/03/2023 9:05 AM CDT us Mauricio Snell MD LAB BLOOD ORDERABLES Final Result [facility] [address] Department [place] [address] documented in this encounter Visit Diagnoses Diagnosis Spontaneous miscarriage documented in this encounter Care Teams Designer Writer Relationship Specialty Start Date End Date Betsy Mendez NP PCP - General Family Medicine 05/19/23 documented as of this encounter
--- OUTSIDE RECORDS SUMMARY | 2024-01-31 21:34 | XMS_ITS | Encounter Summary ---
Author Organization [facility] Healthcare Address [address] [place] [address] Care Team Providers Care Plant Sprayer Name Role Phone Betsy Mendez NP Primary Care Provider [phone] Reason for Referral * Diagnostic Imaging (Routine) - Canceled Specialty Diagnoses / Procedures Referred By Matt t Referred To Contact Diagnoses Encounter to establish gestational age using ultrasound Procedures US Ob Under 14 Weeks Susie Barrios MD [address] [place] [address] Phone: tel: [facility] [address] [place] [address] [address], [place] [address] Phone: tel: fax: Referral ID Status Reason Start Date Expiration Date V isits Requested Visits Authorized [id number] Canceled 05/27/2023 06/25/2024 1 1 Encounter Details Date Type Department Care Team (Latest Contact Info) Description 05/27/2023 2:00 PM CDT Clinical Support [facility] Medical [facility] Women's Health Care at [address] [address] Missed period (Primary Dx); Encounter to establish gestational age using ultrasound Social History Tobacco Use Types Packs/Day Years [...] on file Legal Sex Female 10:38 AM LUMBER TALLIER Gender Identity Female 01/23/2024 9:47 AM LUMBER TALLIER Sexual Orientation Straight 01/23/2024 9: 47 AM LUMBER TALLIER documented as of this encounter Last Filed Vital Signs Vital Sign Reading Time Taken Comments Blood Pressure 124/80 05/27/2023 2:40 PM CDT Pulse - - Temperature - - Respiratory Rate - - Oxygen Saturation - - Inhaled Oxygen Concentration - - Weight 125.1 kg (275 lb 14.4 oz) 05/27/2023 2:40 PM CDT Height 162.6 cm (5' 4 ) 05/27/2023 2:40 PM CDT Body Mass Index 47.36 05/27/2023 2:40 PM CDT documented in this encounter Plan of Treatment Scheduled Orders Name Type Priority Associated Diagnoses Orde r Schedule US Ob Under 14 Weeks Imaging Schedule Routine, Read Routine (OP Routine) Encounter to establish gestational age using ultrasound 1 Occurrences starting 05/27/2023 until 05/26/2024 documented as of this encounter Procedures Procedure Name Priority Date/Time Associated Diagnosis Comments POCT HCG, URINE Routine 05/27/2023 2:44 PM CDT Missed period documented in this encounter Results * POCT hCG, urine (05/27/2023 2:44 PM CDT) HCG, ur, POC Negative Negative Lot Number [id number] QC Backgroud Clear Acceptable QC Control Line Acceptable Urine 05/27/2023 2:44 PM CDT us Susie Barrios MD POINT OF CARE TEST ORDERABLES Final Result documented in this encounter Visit Diagnoses Diagnosis Missed period- Primary Encounter to establish gestational age using ultrasound Encounter for routine screening for malformation using ultrasonics documented in this encounter Care Teams Plant Sprayer Relationship Specialty Start Date End Date Betsy Mendez NP PCP - General Family Medicine 05/19/23 documented as of this encounter
--- OUTSIDE RECORDS SUMMARY | 2024-01-31 21:34 | XMS_ITS | Encounter Summary ---
Author Organization [facility] Address [address] [place] [address]. [place] [address] [place] [address] Care Team Providers Care Radiator Mechanic Name Role Phone Betsy Mendez [facility] Primary Care Provider [phone] Reason for Visit * Reason Comments Sore Throat Encounter Details Date Type Department Care Team (Late st Contact Info) Description 05/18/2023 11:38 AM CDT - 05/18/2023 2:12 PM CDT Emergency [facility] [place] [address] Allyson Deshpande, JOSÉ MIGUEL [address] [id number] Sore Throat Discharge Disposition: Home or Self Care (Routine [...] Sign Reading Time Taken Comments Blood Pressure 127/61 05/18/2023 2:04 PM CDT Pulse 94 05/18/2023 2:04 PM CDT Temperature 37 ??C (98.6 ??F) 05/18/2023 2:04 PM CDT Respiratory Rate 20 05/18/2023 2:04 PM CDT Oxygen Saturation 100% 05/18/2023 2:04 PM CDT Inhaled Oxygen Concentration - - Weight 122.5 kg (270 lb) 05/18/2023 11:41 AM CDT Height 162.6 cm (5' 4 ) 05/18/2023 11:41 AM CDT Body Mass Index 46.35 05/18/2023 11:41 AM CDT documented in this encounter Discharge Instructions * Discharge Instructions* JOSÉ MIGUEL Simmons - 05/18/2023 1:58 PM CDT Please monitor for worsening tonsillar swelling, particularly if on one side and return to the ER if symptoms do worsen. Please sisal picker and start your antibiotic as soon as possible. Thank you for giving us the opportunity to care for you today. If at any point you are becoming more ill, please call your doctor, return here, or go to the ER. You are always welcome back. If you have any questions about this visit, concerns about your symptoms, questions about your medications or other concerns, please give us a call... Our practice is committed to providing you the very best in healthcare. We want to hear from you! Please fill out the survey you get from us. Your feedback is anonymous & helps us improve the patient experience for you and others in the community we serve. - JAGDEEP Sagastume, PA-C - Emergency Medicine Provider * Attachments The following attachments cannot be sent through Care Everywhere. * Sore throat in adults ([place]) * Peritonsillar Abscess, Adult ([place]) documented in this encounter Medications at Time of Discharge amoxicillin-clav ulanate (AUGMENTIN) 500-125 MG tablet Take 1 tablet (500 mg of amoxicillin total) by mouth 2 (two) times a day for 10 days. 20 tablet 05/18/2023 documented as of this encounter ED Notes * Ca Ruiz RN - 05/18/2023 2:11 PM CDT Patient D/C in stable condition with medication script and instructions given, Patient verbalizes understanding and denies questions,pain, or needs at this time, A/Ox4, gait steady * Cici Sinha RN - 05/18/2023 12:04 PM CDT Patient reports she took medication at home and does not want any pain medication at this time. This RN told patient to notify RN if she changes her mind and would like medication for pain relief. Patient verbalized understanding. * Kerri Oh RN - 05/18/2023 11:20 AM CDT Pt to triage from for further work up of a sore throat. Pt reports she can swallow fluids, but states it is so painful. UC did a strep test that was negative. Pt reports she is . Denies other symptoms. KERRI OH RN * JOSÉ MIGUEL Simmons - 05/18/2023 11:20 AM CDT [place], [place] EMERGENCY DEPARTMENT ENCOUNTER HISTORICAL INFORMATION Primary Care Doctor: BETSY MENDEZ [facility]- Patient information was obtained primarily from the patient, nursing notes. History/Exam limitations: None Provider at Bedside Date/Time Event User Comments 05/18/23 1120 Provider at Bedside Assessing Patient ALLYSON DESHPANDE -- CHIEF COMPLAINT Sore Throat Chief Complaint Patient presents with Sore Throat HPI Drew Reis is a 22-year-old female who presents from [facility] due to concern fortonsillar abscess. Pt reports sore throat since yesterday AM. Denies fevers. Painful to swallow, but tolerating PO fluids. Did strep testing at and it was negative. Denies other cold sx- congestion, drainage, coughing. Pt also relays she just found out yesterday she was . LMP Feb 17. No previous evaluation of . PAST MEDICAL HISTORY Ovarian cyst. SURGICAL HISTORY Past Surgical History: Procedure Laterality Date ABDOMINAL SURGERY LASER SURGERY OF EYE CURRENT MEDICATIONS No current facility-administered medications for this encounter. Current Outpatient Medications: amoxicillin-clavulanate (AUGMENTIN) 500-125 MG tablet, Take 1 tablet (500 mg of amoxicillin total) by mouth 2 (two) times a day for 10 days., Disp: 20 tablet, Rfl: 0 ALLERGIES Review of patient's allergies indicates: No Known Allergies FAMILY HISTORY No family history on file. SOCIAL HISTORY Social History Socioeconomic History Marital status: Single Tobacco Use Smoking status: Never Smokeless tobacco: Never Vaping Use Vaping Use: Never used Substance and Sexual Activity Alcohol use: Not Currently Drug use: Not Currently Physical Exam VITAL SIGNS: Filed Vitals: 05/18/23 1121 05/18/23 1141 05/18/23 1155 05/18/23 1404 BP: (!) 146/85 127/61 Pulse: (!) 117 94 94 Resp: 18 17 20 Temp: 99.2 ??F (37.3 ??C) 98.6 ??F (37 ??C) TempSrc: Temporal Temporal SpO2: 100% 100% Weight: 122.5 kg (270 lb) Height: 1.626 m (5' 4 ) Constitutional: Well developed, No acute distress, Non-toxic appearance. Integument: Warm, Dry HEENT: Bilateral tonsillar edema (Right slightly greater than left at 1-2+) with exudates present, No uvula deviation, Voice sounding normal. Respiratory: Normal breath sounds, No respiratory distress. Cardiovascular: Normal heart rate, Normal rhythm Musculoskeletal: Ambulatory Neurologic: Alert, No focal deficits noted. Psychiatric: Affect normal, Judgment normal, Mood normal. EKG (interpreted by ED provider) No results found for this visit on 05/18/23. LABORATORY Results for orders placed or performed during the hospital encounter of 05/18/23 CBC W/DIFF AUTOMATED Result Value Ref Range WBC 12.19 (H) 4.5 - 11.0 x10'3/uL RBC 5.04 4.20 - 5.40 x10'6/uL HGB 14.8 12.0 - 16.0 G/DL HCT 44.8 38.0 - 48.0 % MCV 88.9 81.0 - 99.0 FL MCH 29.4 27.0 - 31.0 PG MCHC 33.0 32.0 - 36.0 G/DL RDW 13.3 11.5 - 14.5 % PLT 280 130 - 400 x10'3/uL MPV 11.5 9.3 - 12.2 FL DIFFERENTIAL TYPE AUTOMATED DIFFERENTIAL NEUTROPHILS 70.6 % LYMPHOCYTES 17.5 % MONOCYTES 11.3 % EOSINOPHILS 0.1 % BASOPHILS 0.2 % IMMATURE GRANS 0.3 % ABS. NEUTROPHILS 8.60 (H) 1.80 - 7.70 x10'3/uL ABS. LYMPHOCYTES 2.13 1.00 - 4.80 x10'3/uL ABS. MONOCYTES 1.38 (H) 0.24 - 0.86 x10'3/uL ABS. EOSINOPHILS 0.01 (L) 0.04 - 0.36 x10'3/uL ABS. BASOPHILS 0.03 0.01 - 0.08 x10'3/uL ABS. IMMATURE GRANULOCYTES 0.04 0.00 - 0.49 x10'3/uL COMPREHENSIVE METABOLIC PANEL Result Value Ref Range GLUCOSE 86 70 - 99 MG/DL BUN 5 (L) 7 - 18 MG/DL CREATININE S/P/B 0.64 0.55 - 1.02 MG/DL SODIUM S/P/B 136 136 - 145 MMOL/L POTASSIUM S/P/B 3.8 3.5 - 5.1 MMOL/L CHLORIDE S/P/B 106 100 - 108 MMOL/L CO2 24.7 21 - 32 MMOL/L CALCIUM S/P/B 9.7 8.5 - 10.1 MG/DL BILIRUBIN TOTAL S/P/B 0.4 0.2 - 1.2 MG/DL TOTAL PROTEIN S/P/B 9.0 (H) 6.4 - 8.2 G/DL ALBUMIN S/P/B 4.1 3.4 - 5.0 G/DL AST 20 15 - 37 U/L ALT 35 14 - 55 U/L ALKALINE PHOSPHATASE S/P/B 55 50 - 136 U/L ANION GAP 5.3 5 - 15 MMOL/L BUN CREATININE RATIO 7.8 6 - 26 A/G RATIO 0.8 (L) 1.0 - 2.0 RATIO GFR ESTIMATE >90 >90 ML/MIN/1.73 M2 RAPID STREP A Specimen: THROAT Result Value Ref Range Specimen Type THROAT RAPID STREP TEST NEGATIVE NEGATIVE CORONAVIRUS (COVID 19) Specimen: NASAL Result Value Ref Range CORONAVIRUS SARS COV 2 RNA NEGATIVE NEGATIVE Specimen Type NASAL INFLUENZA A & B, RAPID Specimen: NASOPHARYNGEAL SWAB Result Value Ref Range Specimen Type NASAL INFLUENZA A NEGATIVE NEGATIVE INFLUENZA B NEGATIVE NEGATIVE RADIOLOGY No orders to display PROCEDURES Procedures MDM ED Course as of 05/18/23 1544 Wed May 18, 2023 1243 INFLUENZA A: NEGATIVE [HS] 1243 INFLUENZA B: NEGATIVE [HS] 1243 CORONAVIRUS SARS COV 2 RNA: NEGATIVE [HS] 1243 RAPID STREP TEST: NEGATIVE [HS] 1243 Pulse: 94 Pulse improved. [HS] 1405 Updated pt regarding findings of work up here in ER. Negative strep, covid, flu. Lab with mildleukocytosis but otherwise unremarkable. Exam with bilateral mild tonsillar swelling which is only slightly worse on the right than left however no uvular deviation, voice change. Patient tolerating p.o. fluids. Discussed with patient option for CT to evaluate for abscess but discussed risk and benefits considering radiation exposure in . Advised patient with exam findings present at this time if abscess present potentially small and may or may not be drainable. Did discuss treatment with antibiotics to cover for abscess as well as infectious processes such as strep and patient agrees with this plan of care. She would like to forego the CT scan at this time. Discussed continued monitoring of her throat at home and if worsening swelling particularly on one side to return to the ER. [HS] ED Course User Index [HS] JOSÉ MIGUEL Simmons I have discussed today's findings with the patient and provided information regarding the likely diagnosis. The patient has been given information regarding their treatment, follow up and concerning symptoms for which they should seek urgent or emergent attention. I have expressed the the importance of seeking attention should there be any new, or worsening symptoms or persistence of their condition. The patient is stable at discharge and has verbalized understanding of these instructions. Impression/Disposition SNOMED CT(R) 1. Pharyngitis PHARYNGITIS Disposition: Discharge Medications sodium chloride 0.9% bolus infusion 1,000 mL (0 mLs Intravenous Infusion Stop Time 05/18/23 1333) acetaminophen (TYLENOL) tablet 650 mg (650 mg Oral Given 05/18/23 1336) Discharge Medication List as of 05/18/2023 2:05 PM START taking these medications Details amoxicillin-clavulanate (AUGMENTIN) 500-125 MG tablet Take 1 tablet (500 mg of amoxicillin total) by mouth 2 (two) times a day for 10 days., Starting 05/18/2023, Until 05/28/2023, Eprescribe Class: Eprescribe Pharmacy: [facility]/pharmacy #[id number] - [place], [place] - [address] (Ph #: [phone]) JOSÉ MIGUEL SIMMONS PA 05/18/23 1124 JOSÉ MIGUEL Simmons 05/18/23 1544 Cosigned by Leobardo Peoples MD at 05/19/2023 7:08 AM CDT documented in this encounter Plan of Treatment Not on file documented as of this encounter Procedures Procedure Name Priority Date/Time Associated Diagnosis Comments CORONAVIRUS (COVID 19) STAT 12:00 PM CDT INFLUENZA A & B STAT 05/18/2023 12:00 PM CDT RAPID STREP A STAT 05/18/2023 11:49 AM CDT COMPREHENSIVE METABOLIC PANEL STAT 05/18/2023 11:49 AM CDT CBC W/DIFF AUTOMATED STAT 05/18/2023 11:49 AM CDT documented in this encounter Results * INFLUENZA A & B, RAPID (05/18/2023 12:00 PM CDT) SPECIMEN TYPE NASAL 05/18/2023 12:06 PM CDT [facility] INFLUENZA A NEGATIVE NEGATIVE 05/18/2023 12:28 PM CDT [facility] INFLUENZA B NEGATIVE NEGATIVE 05/18/2023 12:28 PM CDT [facility] Comment: Interpretation: Negative for Influenza A and B. A negative result does not exclude influenza virus infection. If influenza is circulating in your community, a diagnosis of influenza should be considered based on a patient's clinical presentation and empiric antiviral treatment should be considered, if indicated. If more conclusive testing is needed for hospitalized inpatients, follow-up confirmatory testing with RT-PCR requires a separate order. NASOPHARYNGEAL SWAB / Unknown 05/18/2023 12:00 PM CDT [facility] Final Result Performing Organization Address City/[facility]/ZIP Co de Phone Number [facility] [address] [place] [address], [place] [phone] * CORONAVIRUS (COVID 19) (05/18/2023 12:00 PM CDT) CORONAVIRUS SARS COV 2 RNA NEGATIVE NEGATIVE 05/18/2023 12:28 PM CDT [facility] Comment: NEGATIVE RESULTS DO NOT RULE OUT COVID 19 AND SHOULD NOT BE USED THE SOLE BASIS FOR TREATMENT OR PATIENT MANAGEMENT DECISIONS, INCLUDING INFECTION CONTROL DECISIONS. NEGATIVE RESULTS SHOULD BE CONSIDERED IN THE CONTEXT OF A PATIENT'S RECENT EXPOSURES, HISTORY AND THE PRESENCE OF CLINICAL SIGNS AND SYMPTOMS CONSISTENT WITH COVID 19. THE ID NOW COVID-19 2.0 TEST HAS BEEN AUTHORIZED BY THE FDA UNDER EAU FOR USE BY AUTHORIZED LABORATORIES. PERFORMED BY NUCLEIC ACID AMPLIFICATION FOR MOLECULAR QUALITATIVE DETECTION OF SARS-COV-2. SPECIMEN TYPE NASAL 05/18/2023 12:00 PM CDT [facility] NASAL STRUCTURE / Unknown 05/18/2023 12:00 PM CDT [facility] - GENERAL ORDE RAB[place] Final Result [facility] [address] [place] [address], [place] [phone] * RAPID STREP A (05/18/2023 11:49 AM CDT) SPECIMEN TYPE THROAT 05/18/2023 11:51 AM CDT [facility] RAPID STREP TEST NEGATIVE NEGATIVE 05/18/2023 12:28 PM CDT [facility] STRUCTURE OF ANTERIOR PORTION OF NECK / Unknown 05/18/2023 11:49 AM CDT [facility] - GENERAL [place] SOL[place]O Final Result [facility] [address] [place] [address], * (ABNORMAL) COMPREHENSIVE METABOLIC PANEL (05/18/2023 11:49 AM CDT) GLUCOSE 86 70 - 99 MG/DL 05/18/2023 12:49 PM CDT [facility] BUN 5(L) 7 - 18 MG/DL 05/18/2023 12:49 PM CDT [facility] CREATININE S/P/B 0.64 0.55 - 1.02 MG/DL 05/18/2023 12:49 PM CDT [facility] SODIUM S/P/B 136 136 - 145 MMOL/L 05/18/2023 12:49 PM CDT [facility] POTASSIUM S/P/B 3.8 3.5 - 5.1 MMOL/L 05/18/2023 12:49 PM CDT [facility] CHLORIDE S/P/B 106 100 - 108 MMOL/L 05/18/2023 12:49 PM CDT [facility] CO2 24.7 21 - 32 MMOL/L 05/18/2023 12:49 PM CDT [facility] CALCIUM S/P/B 9.7 8.5 - 10.1 MG/DL 05/18/2023 12:49 PM T [facility] BILIRUBIN TOTAL S/P/B 0.4 0.2 - 1.2 MG/DL 05/18/2023 12:49 PM T [facility] Comment: THIS ASSAY IS NOT RECOMMENDED FOR PATIENTS UNDERGOING TREATMENT WITH ELTROMBOPAG DUE TO THE POTENTIAL FOR FALSELY ELEVATED RESULTS. TOTAL PROTEIN S/P/B 9.0(H) 6.4 - 8.2 G/DL 05/18/2023 12:49 PM T [facility] ALBUMIN S/P/B 4.1 3.4 - 5.0 G/DL 05/18/2023 12:49 PM T [facility] AST 20 15 - 37 U/L 05/18/2023 12:49 PM [facility] ALT 35 14 - 55 U/L 05/18/2023 12:49 PM T [facility] ALKALINE PHOSPHATASE S/P/B 55 50 - 136 U/L 05/18/2023 12:49 PM [facility] ANION GAP 5.3 5 - 15 MMOL/L 05/18/2023 12:49 PM [facility] BUN CREATININE RATIO 7.8 6 - 26 05/18/2023 12:49 PM T [facility] A/G RATIO 0.8(L) 1.0 - 2.0 RATIO 05/18/2023 12:49 PM [facility] GFR ESTIMATE >90 >90 ML/MIN/1.7 3 M2 05/18/2023 12:49 PM [facility] Comment: NOTE: eGFR is not calculated for patients <18 years of age. This is an estimated GFR calculation using the new CKD EPI creatinine equation without race and so does not require a correction factor for race. This estimated GFR should not be used for calculating drug doses. 05/18/2023 11:4 9 AM CDT [facility] Final Resul t [facility] [address] [place] [address], * (ABNORMAL) CBC W/DIFF AUTOMATED (05/18/2023 11:49 AM CDT) WBC 12.19(H) 4.5 - 11.0 x10'3/uL 05/18/2023 12:17 PM CDT [facility] RBC 5.04 4.20 - 5.40 x10'6/uL 05/18/2023 12:17 PM CDT [facility] HGB 14.8 12.0 - 16.0 G/DL 05/18/2023 12:17 PM CDT [facility] HCT 44.8 38.0 - 48.0 % 05/18/2023 12:17 PM CDT [facility] MCV 88.9 81.0 - 99.0 FL 05/18/2023 12:17 PM CDT [facility] MCH 29.4 27.0 - 31.0 PG 05/18/2023 12:17 PM CDT [facility] MCHC 33.0 32.0 - 36.0 G/DL 05/18/2023 12:17 PM CDT [facility] RDW 13.3 11.5 - 14.5 % 05/18/2023 12:17 PM CDT [facility] PLT 280 130 - 400 x10'3/uL 05/18/2023 12:17 PM CDT [facility] MPV 11.5 9.3 - 12.2 FL 05/18/2023 12:17 PM CDT [facility] DIFFERENTIAL TYPE AUTOMATED DIFFERENTIAL 05/18/2023 12:17 PM CDT [facility] NEUTROPHILS % 70.6 % 05/18/2023 12:17 PM CDT [facility] LYMPHOCYTES % 17.5 % 05/18/2023 12:17 PM CDT [facility] MONOCYTES % 11.3 % 05/18/2023 12:17 PM CDT [facility] EOSINOPHILS 0.1 % 05/18/2023 12:17 PM CDT [facility] BASOPHILS 0.2 % 05/18/2023 12:17 PM CDT [facility] IMMATURE GRANS % 0.3 % 05/18/19 12:17 PM CDT [facility] ABS. NEUTROPHILS 8.60(H) 1.80 - 7.70 x10'3/uL 05/18/2023 12:17 PM CDT [facility] ABS. LYMPHOCYTES 2.13 1.00 - 4.80 x10'3/uL 05/18/2023 12:17 PM CDT [facility] ABS. MONOCYTES 1.38(H) 0.24 - 0.86 x10'3/uL 05/18/2023 12:17 PM CDT [facility] ABS. EOSINOPHILS 0.01(L) 0.04 - 0.36 x10'3/uL 05/18/2023 12:17 PM CDT [facility] ABS. BASOPHILS 0.03 0.01 - 0.08 x10'3/uL 05/18/2023 12:17 PM CDT [facility] ABS. IMMATURE GRANULOCYTES 0.04 0.00 - 0.49 x10'3/uL 05/18/2023 12:17 PM CDT [facility] 05/18/2023 11:4 9 AM CDT [facility] Final Resul t [facility] [address] [place] [address], documented in this encounter Visit Diagnoses Diagnosis Pharyngitis- Primary Acute pharyngitis documented in this encounter Administered Medications Inactive Administered Medications - up to 3 most recent administrations Medication Order MAR Action Action Date Dose Rate Site acetaminophen (TYLENOL) tablet 650 mg 650 mg, Oral, Once, 1 dose, On Tue05/18/23 at 1200, Maximum dose of acetaminophen is 4000 mg from all sources in 24 hours. Given 05/18/2023 1:36 PM CDT 650 mg sodium chloride 0.9% bolus infusion 1,000 mL 1,000 mL, Intravenous, Administer over 30 Minutes, Once, 1 dose, On Tue05/18/23 at 1130 New Bag 05/18/2023 11:52 AM CDT 1,000 mLs documented in this encounter Active and Recently Administered Medications Times are shown in CDT. Scheduled Medication Order 05/16/2023 05/17/2023 05/18/2023 acetaminophen (TYLENOL) tablet 650 mg (COMPLETED) 650 mg, Oral, Once, 1 dose, On Tue05/18/23 at 1200, Maximum dose of acetaminophen is 4000 mg from all sources in 24 hours. 1156 (Not Given - Pr ovider: Cici Sinha RN - Reason: Patient/family declined - Comment: patient reports she took 650 of Tylenol this morning with no relief.)1336 (Given - Provider: Jeanie Campbell RN) sodium chloride 0.9% bolus infusion 1,000 mL (COMPLETED) 1,000 mL, Intravenous, Administer over 30 Minutes, Once, 1 dose, On Tue05/18/23 at 1130 1152 (New Bag - Prov ider: Cici Sinha RN)1333 (Infusion Stop Time - Provider: Abimbola Miles RN) documented in this encounter Additional Health Concerns Infection Onset Date Last Indicated Resolved Time COVID-19 Rule Out 05/18/2023 05/18/2023 05/18/2023 12:28 PM CDT documented as of this encounter Care Teams Radiator Mechanic Relationship Specialty Start Date End Date Betsy Mendez FNP- PCP - General NURSE PRACTITIONER 05/18/23 documented as of this encounter
--- OUTSIDE RECORDS SUMMARY | 2024-01-31 21:34 | XMS_ITS ---
Author Organization [facility] Address [address] [place] [address] [place] [address] Care Team Providers Care Acid Retort Operator Name Role Phone Volodymyr INACTIVE, López INACTIVE Unavail able Unavailable Alyssa Leroy Unavailable [phone] REASON FOR VISIT new to establish Encounters Encounter Location Date Provider Diagnosis [facility] [address] [address] [place] [address] 09/02/2022 Alyssa Leroy Plan Of Treatment No Information Progress Notes * JANETH KAY MDOB: [birth year] (23 yo F)Acc No.[id number]:09/02/2022 UNLOCKED PROGRESS NOTE Progress Notes Patient:?JANETH KAY [place] Provider:?Alyssa Barragan PA-C :2000???Age:21 Y???Sex:Female D ate:09/02/2022 [address], [facility] Subjective: * Chief Complaints: * ???1. New to establish. * Medical History:? Objective: * Vitals:? Assessment: Plan: * Treatment: * Billing Information: * Visit Code:? * Procedure Codes:? * Electronic signature of Trever Leroy PA-C, [id number] on 01/31/2024 at 10:33 PM EST Sign off status: Pending * Provider:?Alyssa Barragan PA-C Date:?0 09/02/2022 Generated for Cheikh delacruz/Scottie/Elias on:?01/31/2024 10:33 PM EST
--- OUTSIDE RECORDS SUMMARY | 2024-01-31 21:34 | XMS_ITS | Encounter Summary ---
Author Organization [facility] Healthcare Address [address] [place] [id number] Care Team Providers Care Property Consultant Name Role Phone Betsy Mendez NP Primary Care Provider [phone] Encounter Details Date Type Department Care Team (Latest Contact Info) Description 05/27/2023 2:32 PM CDT - 05/27/2023 11:59 PM CDT Hospital Encounter [address] [id number] History of miscarriage, currently Discharge Disposition: Discharge to home or self [...] on file Legal Sex Female 10:38 AM LOCATION WORKER Gender Identity Female 01/23/2024 9:47 AM LOCATION WORKER Sexual Orientation Straight 01/23/2024 9: 47 AM LOCATION WORKER documented as of this encounter Medications at Time of Discharge al & mag hydroxide with simethicone-diph enhydramine-lido linda (MAGIC MOUTHWASH) suspension 1-1-1 Swish and spit 10 mL every 4 (four) hours as needed (throat pain) 240 mL 05/19/2023 levothyroxine (SYNTHROID) 50 mcg tablet Take 1 tablet (50 mcg total) by mouth daily 90 tablet 1 05/20/2023 vit [id number]-[id number]-dh a 18-1-350 mg capsuleIndicatio ns:Less than 8 weeks gestation of Take 1 capsule by mouth daily 100 capsule 3 05/20/2023 amoxicillin-clav ulanate (AUGMENTIN) 500-125 mg per tablet Take 1 tablet (500 mg of amoxicillin total) by mouth 2 (two) times a day 05/18/2023 4 documented as of this encounter Discharge Disposition Disposition Code Departure Means Destination Discharge to home or self care documented in this encounter Miscellaneous Notes * Result Encounter Note - Mauricio Snell MD - 05/27/2023 11:59 PM CDT Please call patient. I discussed results with falling quantitative hCG levels and a lower progesterone. I discussed that this appears to be a miscarriage that has not yet started. Let us get a transvaginal ultrasound this week to establish an IUP. With a future if she calls early we can check her progesterone level and supplement progesterone. documented in this encounter Plan of Treatment Not on file documented as of this encounter Procedures Procedure Name Priority Date/Time Associated Diagnosis Comments PROGESTERONE Routine 05/27/2023 2:32 PM CDT History of miscarriage, currently HCG, BLOOD, QUANTITATIVE Routine 05/27/2023 2:32 PM CDT History of miscarriage, currently documented in this encounter Results * (ABNORMAL) hCG, blood, quantitative (05/27/2023 2:32 [...] 2:32 PM CDT 05/27/2023 8:02 PM CDT us Mauricio Snell MD LAB BLOOD ORDERABLES Final Result Performing Organization Address [facility] Co de Phone Number [facility] [phone] [address] [facility] [place] [address] * Progesterone (05/27/2023 2:32 PM CDT) Progesterone 5.55 ng/mL Comment: Interpretive Data Males: ?<0.15 ng/mL Females: ??Follicular ?<0.20 ng/mL ??Ovulation ? <4.1 ng/mL ??Luteal ?4.1 - ??14.5 ng/mL ??1st Trimester ?? 11.0 - ??44.0 ng/mL ??2nd Trimester ?? 25.0 - ??83.0 ng/mL ??3rd Trimester ?? 59.0 - 214.0 ng/mL ??Postmenopausal ??<0.13 ng/mL Current interpretive data was last revised 2021. Testing performed by: [facility], [address] [place] [address] Blood 05/27/2023 2:32 PM CDT 05/28/2023 9:37 PM CDT Mauricio Snell MD LAB BLOOD ORDERABLES Final Result Performing Organization Address [facility] [place] de Phone Number [facility] [address] [address] [address] [place] [address] documented in this encounter Visit Diagnoses Diagnosis History of miscarriage, currently documented in this encounter Care Teams Property Consultant Relationship Specialty Start Date End Date Betsy Mendez NP PCP - General Family Medicine 05/19/23 documented as of this encounter
--- OUTSIDE RECORDS SUMMARY | 2024-01-31 21:34 | XMS_ITS | Encounter Summary ---
Author Organization [facility] Address [address] [place] [address]. [place], [place] [address] [place] [address] Care Team Providers Care Football Scout Name Role Phone Betsy Mendez [facility] Primary Care Provider [phone] Encounter Details Date Type Department Care Team (Latest Contact Info) Description 05/18/2023 Travel Social History Tobacco Use Types Packs/Day Years [...] on file documented as of this encounter Plan of Treatment Not on file documented as of this encounter Visit Diagnoses Not on filedocumented in this encounter Additional Health Concerns Infection Onset Date Last Indicated Resolved Time COVID-19 Rule Out 05/18/2023 05/18/2023 05/18/2023 12:28 PM CDT documented as of this encounter Care Teams Football Scout Relationship Specialty Start Date End Date Betsy Mendez [facility] PCP - General NURSE PRACTITIONER 05/18/23 documented as of this encounter
--- OUTSIDE RECORDS SUMMARY | 2024-01-31 21:34 | XMS_ITS | Encounter Summary ---
Author Organization [facility] Healthcare Address [address] [place] [address] Care Team Providers Care Orchestra Musician Name Role Phone Betsy Mendez NP Primary Care Provider [phone] Encounter Details Date Type Department Care Team (Latest Contact Info) Description 06/06/2023 1:12 PM CDT - 06/06/2023 11:59 PM CDT Hospital Encounter [address] [id number] SAB (spontaneous ) Discharge Disposition: Discharge to home or self [...] on file Legal Sex Female 10:38 AM SCOOPER Gender Identity Female 01/23/2024 9:47 AM SCOOPER Sexual Orientation Straight 01/23/2024 9: 47 AM SCOOPER documented as of this encounter Medications at Time of Discharge al & mag hydroxide with simethicone-diphe nhydramine-lidoca ine (MAGIC MOUTHWASH) suspension 1-1-1 Swish and spit 10 mL every 4 (four) hours as needed (throat pain) 240 mL 05/19/2023 levothyroxine (SYNTHROID) 50 mcg tablet Take 1 tablet (50 mcg total) by mouth daily 90 tablet 1 05/20/2023 vit 29-tiqi-nwogp-dha 18-1-350 mg capsuleIndication s:Less than 8 weeks gestation of Take 1 capsule by mouth daily 100 capsule 3 05/20/2023 documented as of this encounter Discharge Disposition Disposition Code Departure Means Destination Discharge to home or self care documented in this encounter Miscellaneous Notes * Result Encounter Note - Mauricio Snell MD - 06/06/2023 11:59 PM CDT Please call patient with results. Quantitative hCG is coming way down consistent with history of miscarriage. Let us recheck in 1 week. We need to follow until resolved. documented in this encounter Plan of Treatment Not on file documented as of this encounter Procedures Procedure Name Priority Date/Time Associated Diagnosis Comments HCG, BLOOD, QUANTITATIVE Routine 06/06/2023 1:12 PM CDT SAB (spontaneous ) documented in this encounter Results * (ABNORMAL) [...] MD LAB BLOOD ORDERABLES Final Result [facility] [id number] [address] [place] [address] documented in this encounter Visit Diagnoses Diagnosis SAB (spontaneous ) Unspecified spontaneous without mention of complication documented in this encounter Care Teams Orchestra Musician Relationship Specialty Start Date End Date Betsy Mendez NP PCP - General Family Medicine 05/19/23 documented as of this encounter
--- OUTSIDE RECORDS SUMMARY | 2024-01-31 21:34 | XMS_ITS | Encounter Summary ---
Author Organization [facility] Address [address] [place] [id number] Care Team Providers Care Duct Maker Name Role Phone Betsy Mendez NP Primary Care Provider [phone] Reason for Visit * Reason Comments Establish Care Pt is here to est ca re Follow-up Pt was seen in [facility] ED yesterday for abscess in her throat. They prescribed ax. They did not want to do a CT scan due to patient being . The throat pain started 3 days ago under her jaw. The pain has gone down to her throat yesterday Encounter Details Date Type Department Care Team (Latest Contact Info) Description 05/19/2023 1:30 PM CDT Office Visit [facility] Primary Care at [address] [address] Betsy Mendez NP [address] [place] [address] [address] [place] [address] Acquired hypothyroidism (Primary Dx); Positive test; Pharyngitis, unspecified etiology; Lipid screening; Screening for diabetes mellitus Social History Tobacco Use Types Packs/Day Years [...] on file Legal Sex Female 10:38 AM UNDERGROUND ROOF BOLTER Gender Identity Female 01/23/2024 9:47 AM UNDERGROUND ROOF BOLTER Sexual Orientation Straight 01/23/2024 9: 47 AM UNDERGROUND ROOF BOLTER documented as of this encounter Last Filed Vital Signs Vital Sign Reading Time Taken Comments Blood Pressure 124/78 05/19/2023 1:42 PM CDT Pulse 101 05/19/2023 1:42 PM CDT Temperature 36.8 ??C (98.3 ??F) 05/19/2023 1:42 PM CD T Respiratory Rate - - Oxygen Saturation 98% 05/19/2023 1:42 PM CDT Inhaled Oxygen Concentration - - Weight 125.5 kg (276 lb 9.6 oz) 05/19/2023 1:42 PM CDT Height 162.6 cm (5' 4 ) 05/19/2023 1:42 PM CDT Body Mass Index 47.48 05/19/2023 1:42 PM CDT documented in this encounter Patient Instructions * Patient Instructions* Betsy Mendez NP - 05/19/2023 1:30 PM CDT My medical office worker and I are thankful you have trusted us with your care, and hope that you received EXCELLENT care ! Please do not hesitate to call if you have any questions or concerns at [facility] - * Attachments The following attachments cannot be sent through Care Everywhere. * Pharyngitis (AfterCare(R) Instructions(ER/ED)) (Burmese) documented in this encounter Ordered Prescriptions Prescription Sig Dispense Quantity Refills Last Filled Start Date End Date al & mag hydroxide with simethicone-diphenh ydramine-lidocaine (MAGIC MOUTHWASH) suspension 1-1-1 Swish and spit 10 mL every 4 (four) hours as needed (throat pain) 240 mL 05/19/2023 documented in this encounter Progress Notes * Betsy Mendez NP - 05/19/2023 1:30 PM CDT Images from the original note were not included. Chief Complaint Patient presents with Establish Care Pt is here to est care Follow-up Pt was seen in [place] ED yesterday for abscess in her throat. They prescribed ax. They did not want to do a CT scan due to patient being . The throat pain started 3 days ago under her jaw. The pain has gone down to her throat yesterday Subjective: Drew Reis is a 22 y.o. female. Patient is being seen today to establish care. HPI See CC above. Pt was seen in [place] yesterday. Symptoms started 3 days ago with a sore throat. She tested negative for strep at CC and in ER yesterday. She was sent to ER to r/o an abscess. ER did not want to do a CT because they said they would treat regardless and she is . She states both sides of her throat are swollen but the right side is worse. She thinks the swelling is worse today. She is having difficulty eating and drinking because of the pain. She has only been able to eat soup and jello. She took the test 2 days ago, so she just found out. Waiting for call back form OB. LMP: in February. She took a test in March and it was neg. Took a test in April and it was neg. Periods are usually regular. Was not trying to conceive. Hx hypothyroidism: dx at age 17. Currently on levothyroxine. Pt states she is from [place] - moved here to be with her fiance and his family. Past Medical History: Diagnosis Date H/O one miscarriage <6 weeks SVT (supraventricular tachycardia) ([facility]) Social History Tobacco Use Smoking status: Never Smokeless tobacco: Never Substance and Sexual Activity Drug use: None Sexual activity: None Alcohol Use: Not on file Past Surgical History: Procedure Laterality Date EYE SURGERY OVARIAN CYST REMOVAL Family History Problem Relation Age of Onset Asthma Mother No Known Problems Father No Known Problems Sister No Known Problems Brother No Known Problems Brother Current Outpatient Medications: amoxicillin-clavulanate (AUGMENTIN) 500-125 mg per tablet, Take 1 tablet (500 mg of amoxicillin total) by mouth 2 (two) times a day, Disp: , Rfl: levothyroxine (SYNTHROID) 25 mcg tablet, , Disp: , Rfl: al & mag hydroxide with tkqfwrsgnhr-mszvkyosjqbdwtf-unfufgngl (MAGIC MOUTHWASH) suspension 1-1-1, Swish and spit 10 mL every 4 (four) hours as needed (throat pain), Disp: 240 mL, Rfl: 0 No Known Allergies Review of Systems Constitutional: Negative for chills, fever, malaise/fatigue and weight loss. HENT: Positive for sore throat. Negative for congestion, ear discharge, ear pain and sinus pain. Eyes: Negative for blurred vision, double vision, pain and discharge. Respiratory: Negative for cough. Cardiovascular: Negative for chest pain, palpitations, claudication and leg swelling. Gastrointestinal: Negative for abdominal pain, heartburn, nausea and vomiting. Genitourinary: Negative for dysuria. Musculoskeletal: Negative for myalgias. Skin: Negative for rash. Neurological: Negative for dizziness, weakness and headaches. BP 124/78 (BP Location: Left arm, Patient Position: Sitting) Pulse 101 Temp 36.8 ??C (98.3 ??F)(Oral) Ht 162.6 cm (5' 4 ) Wt 125.5 kg (276 lb 9.6 oz) SpO2 98% BMI 47.48 kg/m?? Physical Exam Constitutional: General: She is not in acute distress. Appearance: She is well-developed. HENT: Head: Normocephalic. Right Ear: Tympanic membrane, ear canal and external ear normal. Left Ear: Tympanic membrane, ear canal and external ear normal. Mouth/Throat: Pharynx: Oropharyngeal exudate and posterior oropharyngeal erythema present. Tonsils: Tonsillar exudate present. 1+ on the right. 1+ on the left. Comments: Right worse than left with white patches and exudate on bilateral tonsils Eyes: Conjunctiva/sclera: Conjunctivae normal. Neck: Thyroid: No thyromegaly. Trachea: No tracheal deviation. Cardiovascular: Rate and Rhythm: Normal rate and regular rhythm. Heart sounds: Normal heart sounds. No murmur heard. No friction rub. Pulmonary: Effort: Pulmonary effort is normal. No respiratory distress. Breath sounds: Normal breath sounds. No wheezing or rales. Musculoskeletal: Cervical back: Neck supple. Right lower leg: No edema. Left lower leg: No edema. Lymphadenopathy: Cervical: No cervical adenopathy. Skin: General: Skin is warm and dry. Neurological: Mental Status: She is alert and oriented to person, place, and time. Psychiatric: Mood and Affect: Mood normal. Behavior: Behavior normal. Thought Content: Thought content normal. Judgment: Judgment normal. Assessment/Plan Diagnoses and all orders for this visit: Acquired hypothyroidism (Primary) Assessment & Plan: History of. She is to continue her levothyroxine 25 mcg once daily. Will check a TSH level today Orders: - Thyroid Function [place]; Future Positive test Assessment & Plan: Will check a quantitative HCG. Once is confirmed we can send a referral. I did give patient a couple different options in the area including [facility] versus [facility] or [facility] Orders: - hCG, blood, quantitative; Future Pharyngitis, unspecified etiology Assessment & Plan: Monospot negative in office. I am going to test for Sadaf bar virus. In the interim severity examdictate that she continue on the Augmentin twice daily until gone as given to her by previous ER. Igave her magic mouthwash to swish and spit to numb her throat to continue to get down liquids and soup and Jell-O as she has been eating. Cautions for dehydration given. She may continue to take Tylenol for throat pain. Will check labs today and I cautioned her to return if symptoms become more severe Orders: - POCT mononucleosis screen - Sadaf-Mcgregor virus (EBV) antibody panel Blood; Future - CBC with auto differential; Future Lipid screening - Lipid panel; Future - Comprehensive metabolic panel; Future Screening for diabetes mellitus - Hemoglobin A1c; Future Other orders - al & mag hydroxide with ktvogdzoiuu-acjgzrtrcakcgxz-fnkdhlkbx (MAGIC MOUTHWASH) suspension 1-1-1; Swish and spit 10 mL every 4 (four) hours as needed (throat pain) Return in about 6 months (around 11/18/2023) for Annual physical. Pt voiced understanding of plan of care and follow up Betsy Mendez NP documented in this encounter Miscellaneous Notes * Assessment & Plan Note - Betsy Mendez NP - 05/19/2023 3:17 PM CDT Associated Problem(s): Acquired hypothyroidism History of. She is to continue her levothyroxine 25 mcg once daily. Will check a TSH level today * Assessment & Plan Note - Betsy Mendez NP - 05/19/2023 3:17 PM CDT Associated Problem(s): Pharyngitis Monospot negative in office. I am going to test for Sadaf bar virus. In the interim severity examdictate that she continue on the Augmentin twice daily until gone as given to her by previous ER. Igave her magic mouthwash to swish and spit to numb her throat to continue to get down liquids and soup and Jell-O as she has been eating. Cautions for dehydration given. She may continue to take Tylenol for throat pain. Will check labs today and I cautioned her to return if symptoms become more severe * Assessment & Plan Note - Betsy Mendez NP - 05/19/2023 3:13 PM CDT Associated Problem(s): Positive test Will check a quantitative HCG. Once is confirmed we can send a referral. I did give patient a couple different options in the area including [facility] versus [facility] or [facility] documented in this encounter Plan of Treatment Not on file documented as of this encounter Procedures Procedure Name Priority Date/Time Associated Diagnosis Comments POCT MONONUCLEOSIS SCREEN Routine 05/19/2023 2:24 PM CDT Pharyngitis, unspecified etiology documented in this encounter Results * (ABNORMAL) CBC with auto differential (05/19/2023 2:32 PM CDT) WBC 13.3(H) 3.8 - 9.9 K/cumm Hgb 13.6 11.9 - 15.5 g/dL [facility] Hct 41.9 35.6 - 45.5 % [facility] Plt 256 150 - 400 K/cumm [facility] MPV 12.3 9.1 - 12.3 fL [facility] RBC 4.62 3.90 - 5.20 M/cumm [facility] MCV 90.7 81.3 - 96.4 fL [facility] MCH 29.4 27.1 - 33.3 pg [facility] MCHC 32.5 32.3 - 35.7 g/dL [facility] RDW CV 13.4 11.1 - 14.9 % [facility] RDW SD 44.7 35.7 - 48.1 fL [facility] NRBC abs 0.00 0.00 - 0.01 K/cumm [facility] Blood 05/19/2023 2:32 PM CDT 05/19/2023 7:34 PM CDT Betsy Mendez NP LAB BLOOD ORDERABLES Final Resul t [facility] [id number] [address] Department [place] [address] * (ABNORMAL) Comprehensive metabolic panel (05/19/2023 2:32 PM CDT) Sodium 135 135 - 145 mmol/L Potassium, pl 3.7 3.3 - 4.9 mmol/L [facility] Chloride 101 97 - 110 mmol/L [facility] CO2 18(L) 22 - 32 mmol/L [facility] Anion gap 16(H) 2 - 15 mmol/L [facility] BUN 6 6 - 25 mg/dL [facility] Creatinine 0.52(L) 0.60 - 1.10 mg/dL [facility] Glucose 82 70 - 199 mg/dL [facility] Comment: Interpretive Data Fasting glucose >/= 126 mg/dl is diagnostic for diabetes. ?? Fasting is defined as no caloric intake for at least 8 hours. Fasting glucose between 100 mg/dl to 125 mg/dl is diagnostic of prediabetes. In a patient with classic symptoms of hyperglycemia or hyperglycemic crisis, a random glucose >/= 200 mg/dl is diagnostic for diabetes. In the absence of unequivocal hyperglycemia, results should be confirmed by repeat testing. The classification and Diagnosis of Diabetes Diabetes Care 2022; 46: S19-S40. Current interpretive data was last revised 2022. Calcium 9.5 8.5 - 10.3 mg/dL [facility] Bilirubin, total 0.3 0.1 - 1.2 mg/dL [facility] Protein, pl 8.2 6.5 - 8.5 g/dL [facility] Albumin 4.2 3.5 - 5.0 g/dL [facility] Alk phos 50 40 - 130 Units/L [facility] ALT 19 7 - 45 Units/L [facility] AST 25 10 - 45 Units/L [facility] Blood 05/19/2023 2:32 PM CDT 05/19/2023 7:34 PM CDT Betsy Mendez NP LAB BLOOD ORDERABLES Final [facility]ul t [facility] [address] [address] Department [place] [address] * (ABNORMAL) Lipid panel (05/19/2023 2:32 PM CDT) Cholesterol 139 30 - 199 mg/dL Comment: Interpretive Data Ages < or = 19 years ??Acceptable: ? <170 mg/dL ??Borderline high: ??170-199 mg/dL ??High: ? >or= 200 mg/dL Ages > or = 20 years ??Desirable: ?<200 mg/dL ??Borderline high: ??200-239 mg/dL ??High: ? >or= 240 mg/dL Literature References: 1. Expert Panel on Integrated Guidelines for Cardiovascular Health and Risk Reduction in Children and Adolescents. Pediatrics 2011;128:S213 2. NCEP Expert Panel. Circulation 2004;110:227 Current Interpretive Data was last revised on 2017. Triglycerides 95 <=149 mg/dL [facility] Comment: Interpretive Data Ages < or = 9 years ??Acceptable: ? <75 mg/dL ??Borderline high: ??75-99 mg/dL ??High: ? >or= 100 mg/dL Ages 10 to 20 years ??Acceptable: ? <90 mg/dL ??Borderline high: ??90-129 mg/dL ??High: ? >or= 130 mg/dL Ages > or = 20 years ??Desirable: ?<150 mg/dL ??Borderline high: ??150-199 mg/dL ??High: ? 200-499 mg/dL ?Very high: ?? >or= 499 mg/dL Literature References: 1. Expert Panel on Integrated Guidelines for Cardiovascular Health and Risk Reduction in Children and Adolescents. Pediatrics 2011;128:S213 2. NCEP Expert Panel. Circulation 2004;110:227 Current Interpretive Data was last revised on 2017. HDL 35(L) >=40 mg/dL [facility] Comment: Interpretive Data Ages < or = 19 years ??Acceptable: ? >45 mg/dL ??Borderline low: ?? 40-45 mg/dL ??Low: ? <40 mg/dL Ages > or = 20 years ??Desirable: ?>or= 60 mg/dL ??Low: ? <40 mg/dL Literature References: 1. Expert Panel on Integrated Guidelines for Cardiovascular Health and Risk Reduction in Children and Adolescents. Pediatrics 2011;128:S213 2. NCEP Expert Panel. Circulation 2004;110:227 Current Interpretive Data was last revised on 2017. LDL, calculated 85 <=129 mg/dL [facility] Comment: Interpretive Data Ages < or = 19 years ??Acceptable: ? <110 mg/dL ??Borderline high: ??110-129 mg/dL ??High: ?>or= 130 mg/dL Ages > or = 20 years ??Optimal: ? <100 mg/dL ??Near optimal: ?100-129 mg/dL ??Borderline high: ?? 130-159 mg/dL ??High: ?>160 mg/dL Literature References: 1. Expert Panel on Integrated Guidelines for Cardiovascular Health and Risk Reduction in Children and Adolescents. Pediatrics 2011;128:S213 2. NCEP Expert Panel. Circulation 2004;110:227 Current Interpretive Data was last revised on 2017. Non-HDL Cholesterol 104 mg/dL [facility] Comment: Interpretive Data Ages < or = 19 years ??Acceptable: ?<120 mg/dL ??Borderline high: ??120-144 mg/dL ??High: ?>145 mg/dL Ages > or = 20 years ??When triglycerides are >200 mg/dL, Non-HDL cholesterol is a secondary target of ? therapy with treatment goals that are 30 mg/dL greater than the LDL cholesterol target. ? Literature References: 1. Expert Panel on Integrated Guidelines for Cardiovascular Health and Risk Reduction in Children and Adolescents. Pediatrics 2011;128:S213 2. NCEP Expert Panel. Circulation 2004;110:227 Current Interpretive Data was last revised on 2017. Chol/HDL ratio 4 [facility] Blood 05/19/2023 2:32 PM CDT 05/19/2023 7:34 PM CDT us Betsy Mendez NP LAB BLOOD ORDERABLES Final Resul t [facility] [address] [address] Department [place] [address] * (ABNORMAL) Thyroid Function [place] (05/19/2023 2:32 PM CDT) TSH 5.38(H) 0.30 - 4.20 mcIUnit/mL Blood 05/19/2023 2:32 PM CDT 05/19/2023 7:34 PM CDT us Betsy Mendez NP LAB BLOOD ORDERABLES Final Resul t Performing Organization Address [facility] de Phone Number [facility] [id number] [employer] [place], [place] [id number] * (ABNORMAL) Sadaf-Mcgregor virus (EBV) antibody panel Blood (05/19/2023 2:32 PM CDT) Pathologist [facility] EBV nuclear Ab Positive(A) Negative Comment: Indicates the presence of detectable IgG antibody to EBV Nuclear Antigen. Testing performed by: [facility] [place]., [address] EBV VCA IgG Positive(A) Negative [facility] Comment: Indicates the presence of antibody; 90% of the adult population will have been infected with EBV sometime in the past. Testing performed by: [facility] [address] [place]., [address] EBV VCA IgM Negative Negative [facility] Comment:Testing performed by : [facility] [place]., [address] EBV interp Past Infection [facility] Comment:Testing performed by : [facility] [place]., [address] Blood 05/19/2023 2:32 PM CDT 05/20/2023 9:47 AM CDT us Betsy Mendez NP LAB MICROBIOLOGY - GENERAL ORDER CYN Final Result Performing Organization Address [facility] Co de Phone Number [facility] [id number] [address] [address] * (ABNORMAL) Hemoglobin A1c (05/19/2023 2:32 PM CDT) Pathologist [facility] Hgb A1C 5.8(H) 4.0 - 5.6 % Estimated Average Glucose 120 mg/dL [facility] Comment: The ADA recommends reporting an estimated Average Glucose (eAG) with all Hemoglobin A1c results using the equation derived from a study of 507 normal and diabetic adults. ??Minority populations were underrepresented and children were not included. ?? (Diabetes Care 31:3568-1776, 2008). ??The eAG is not equivalent to a fasting glucose. Blood 05/19/2023 2:32 PM CDT 05/19/2023 7:34 PM CDT Result [facility] Betsy Mendez NP LAB BLOOD ORDERABLES Final Resul t Performing Organization Address [facility] de Phone Number [facility] [address] [address] Department [facility] [place], [place] [phone] * (ABNORMAL) hCG, blood, quantitative (05/19/2023 2:32 PM CDT) Pathologist [facility] hCG, quant 9,744.0(H ) 0.0 - 5.0 IUnits/L Comment: Interpretive Data Male: < 5 IU/L Non- premenopausal Female: <5 IU/L The Scarlett hCG Beta Quant assay procedure was used. Results from different manufacturers or methods may not be comparable. ??Serial testing should be performed using the same method. Interpretive Data was last revised on 2023 Blood 05/19/2023 2:32 PM CDT 05/19/2023 7:34 PM CDT Result [facility] us Betsy Mendez NP LAB BLOOD ORDERABLES Final Resul t Performing Organization Address [facility] Co de Phone Number [facility] [phone] Department [employer] [place], [place] [phone] * POCT mononucleosis screen (05/19/2023 2:24 PM CDT) Pathologist [facility] Heterophile, POC negative Blood spot 05/19/2023 2:24 PM CDT Result [facility] us Betsy Mendez NP POINT OF CARE TEST ORDERABLES Fi nal Result documented in this encounter Visit Diagnoses Diagnosis Acquired hypothyroidism- Primary Unspecified hypothyroidism Positive test examination or test, positive result Pharyngitis, unspecified etiology Lipid screening Screening for lipoid disorders Screening for diabetes mellitus documented in this encounter Historical Medications * This list may reflect changes made after this encounter. amoxicillin-clav ulanate (AUGMENTIN) 500-125 mg per tablet Take 1 tablet (500 mg of amoxicillin total) by mouth 2 (two) times a day 05/18/2023 4 levothyroxine (SYNTHROID) 25 mcg tablet 05/14/2023 4 added in this encounter Care Teams Duct Maker Relationship Specialty Start Date End Date Betsy Mendez NP PCP - General Family Medicine 05/19/23 documented as of this encounter
--- OUTSIDE RECORDS SUMMARY | 2024-01-31 21:34 | XMS_ITS | Encounter Summary ---
Author Organization [facility] Address [address] [place] [address] Care Team Providers Care Dental Appliance Mechanic Name Role Phone Betsy Mendez NP Primary Care Provider Encounter Details Date Type Department Care Team (Late st Contact Info) Description 05/19/2023 2:30 PM CDT Lab [facility] Outpatient Lab at [address] [address] Positive test (Primary Dx) Social [...] on file Legal Sex Female 10:38 AM UX MANAGER Gender Identity Female 01/23/2024 9:47 AM UX MANAGER Sexual Orientation Straight 01/23/2024 9: 47 AM UX MANAGER documented as of this encounter Plan of Treatment Not on file documented as of this encounter Visit Diagnoses Diagnosis Positive test- Primary examination or test, positive result documented in this encounter Care Teams Dental Appliance Mechanic Relationship Specialty Start Date End Date Betsy Mendez NP PCP - General Family Medicine 05/19/23 documented as of this encounter
--- OUTSIDE RECORDS SUMMARY | 2024-01-31 21:34 | XMS_ITS | Encounter Summary ---
Author Organization [facility] Address [address] [place] [address] Care Team Providers Care Collar Setter Name Role Phone Vanessa Betsy MIGUEL Primary Care Provider [phone] Encounter Details Date Type Department Care Team (Latest Contact Info) Description 05/19/2023 2:32 PM CDT - 05/19/2023 11:59 PM CDT Hospital Encounter [address] [id number] Pharyngitis, unspecified etiology; Acquired hypothyroidism; Lipid screening; Screening for diabetes mellitus; Positive test Discharge Disposition: Discharge to home or self [...] on file Legal Sex Female 10:38 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 Gender Identity Female 01/23/2024 9:47 AM 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 Sexual Orientation Straight 01/23/2024 9: 47 AM 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 documented as of this encounter Medications at Time of Discharge al & mag hydroxide with simethicone-diph enhydramine-lido linda (MAGIC MOUTHWASH) suspension 1-1-1 Swish and spit 10 mL every 4 (four) hours as needed (throat pain) 240 mL 05/19/2023 amoxicillin-clav ulanate (AUGMENTIN) 500-125 mg per tablet Take 1 tablet (500 mg of amoxicillin total) by mouth 2 (two) times a day 05/18/2023 04/13/202 4 levothyroxine (SYNTHROID) 25 mcg tablet 05/14/2023 4 documented as of this encounter Discharge Disposition Disposition Code Departure Means Destination Discharge to home or self care documented in this encounter Miscellaneous Notes * Result Encounter Note - Betsy Mendez NP - 05/19/2023 11:59 PM CDT Called patient with results. Pt aware. Am increasing levothyroxine to 50mcg daily. Called in . Referral to OB documented in this encounter Plan of Treatment Not on file documented as of this encounter Procedures Procedure Name Priority Date/Time Associated Diagnosis Comments EGFR Routine 05/19/2023 2:32 PM CDT Lipid screening DIFFERENTIAL AUTO Routine 05/19/2023 2:3 2 PM CDT Pharyngitis, unspecified etiology THYROID FUNCTION CASCADE Routine 05/19/2023 2:32 PM CDT Acquired hypothyroidism CBC WITH AUTO DIFFERENTIAL Routine 05/19/2023 2:32 PM CDT Pharyngitis, unspecified etiology CHEPE-MCGREGOR VIRUS VCA ANTIBODY PANEL Routine 05/19/2023 2:32 PM CDT Pharyngitis, unspecified etiology HCG, BLOOD, QUANTITATIVE Routine 05/19/2023 2:32 PM CDT Positive test T4, FREE Routine 05/19/2023 2:32 PM CDT Acquired hypothyroidism HEMOGLOBIN A1C Routine 05/19/2023 2:32 PM CDT Screening for diabetes mellitus LIPID PANEL Routine 05/19/2023 2:32 PM CDT Lipid screening COMPREHENSIVE METABOLIC PANEL Routine 05/19/2023 2:32 PM CDT Lipid screening documented in this encounter Results * eGFR (05/19/2023 2:32 PM CDT) eGFR >90 >=60 mL/min/1. 73 m2 Comment: Interpretive Data Reference Interval Normal ?>/= 90 mL/min/1.73m2 Mildly decreased* ? 60 - 89 mL/min/1.73m2 Mildly to moderately decreased ?45 - 59 mL/min/1.73m2 Moderately to severely decreased ??30 - 44 mL/min/1.73m2 Severely decreased ?15 - 29 mL/min/1.73m2 Kidney Failure ?< 15 ??mL/min/1.73m2 *Relative to young adult level Estimated glomerular filtration rate is determined by the 2020 CKD-EPI equation recommended by the National Kidney Foundation (A Unifying Approach to GFR Estimation: Recommendations of the NKF-ASK Task Force on Reassessing the Inclusion of Race in Diagnosing Kidney Disease, JASN 2020). The CKD-EPI equation should not be used for patients with unstable renal function and has not been validated in children and those over 70. Current interpretive data was last reviewed 2020. Blood 05/19/2023 2:32 PM CDT 05/19/2023 7:55 PM CDT us Betsy Mnedez NP LAB BLOOD ORDERABLES Final Resul t [address] [address] Department [place] [address] * T4, free (05/19/2023 2:32 PM CDT) Free T4 0.93 0.90 - 1.70 ng/dL Blood 05/19/2023 2:32 PM CDT 05/19/2023 7:55 PM CDT us Betsy Vanessa RIVERA LAB BLOOD ORDERABLES Final Resul t [address] [address] Department [place] [address] * (ABNORMAL) Differential, auto (05/19/2023 2:32 PM CDT) Neutrophil abs 9.4(H) 1.5 - 6.5 K/cumm Imm gran abs 0.1 0.0 - 0.1 K/cumm [facility] Lymphocyte abs 2.2 0.8 - 3.3 K/cumm [facility] Monocyte abs 1.6(H) 0.2 - 0.8 K/cumm [facility] Eosinophil abs 0.0 0.0 - 0.5 K/cumm [facility] Basophil abs 0.1 0.0 - 0.1 K/cumm [facility] Neutrophil pct 70.6 % [facility] Comment: Interpretive Data Percent cell count reference ranges are not reported, since discordance with absolute values may lead to misinterpretation of CBC data. Current Interpretive Data was last revised on 2017. Imm gran pct 0.5 % [facility] Comment: Interpretive Data Percent cell count reference ranges are not reported, since discordance with absolute values may lead to misinterpretation of CBC data. Current Interpretive Data was last revised on 2017. Lymphocyte pct 16.2 % [facility] Comment: Interpretive Data Percent cell count reference ranges are not reported, since discordance with absolute values may lead to misinterpretation of CBC data. Current Interpretive Data was last revised on 2017. Monocyte pct 12.2 % [facility] Comment: Interpretive Data Percent cell count reference ranges are not reported, since discordance with absolute values may lead to misinterpretation of CBC data. Current Interpretive Data was last revised on 2017. Eosinophil pct 0.1 % [facility] Comment: Interpretive Data Percent cell count reference ranges are not reported, since discordance with absolute values may lead to misinterpretation of CBC data. Current Interpretive Data was last revised on 2017. Basophil pct 0.4 % [facility] Comment: Interpretive Data Percent cell count reference ranges are not reported, since discordance with absolute values may lead to misinterpretation of CBC data. Current Interpretive Data was last revised on 2017. Blood 05/19/2023 2:32 PM CDT 05/19/2023 7:34 PM CDT Betsy Vanessa LAB BLOOD ORDERABLES Final Resul t Performing Organization Address [facility] de Phone Number [facility] [address] [place] [address] * (ABNORMAL) hCG, blood, quantitative (05/19/2023 2:32 PM CDT) Pathologist [facility] hCG, quant 9,744.0(H ) 0.0 - 5.0 [...] CDT 05/19/2023 7:34 PM CDT Betsy Mendez LAB BLOOD ORDERABLES Final Resul t Performing Organization Address [facility] de Phone Number MILLYBRYAN [address] [facility] [place] [address] * (ABNORMAL) Hemoglobin A1c (05/19/2023 2:32 PM CDT) Pathologist [facility] Hgb A1C 5.8(H) 4.0 - 5.6 % Estimated Average Glucose 120 mg/dL [facility] Comment: The ADA recommends reporting an estimated Average Glucose (eAG) with all Hemoglobin A1c results using the equation derived from a study of 507 normal and diabetic adults. ??Minority populations were underrepresented and children were not included. ?? (Diabetes Care 31:1847-9136, 2008). ??The eAG is not equivalent to a fasting glucose. Blood 05/19/2023 2:32 PM CDT 05/19/2023 7:34 PM CDT Betsy Mendez NP LAB BLOOD ORDERABLES Final Resul t Performing Organization Address City/[facility] Co de Phone Number [facility]BBARD [address] Department of [employer] [place], [place] [id number] * (ABNORMAL) CBC with auto differential (05/19/2023 2:32 PM CDT) WBC 13.3(H) 3.8 - 9.9 K/cumm Hgb 13.6 11.9 - 15.5 g/dL [facility] Hct 41.9 35.6 - 45.5 % [facility] Plt 256 150 - 400 K/cumm [facility] MPV 12.3 9.1 - 12.3 fL [facility] RBC 4.62 3.90 - 5.20 M/cumm [facility] MCV 90.7 81.3 - 96.4 fL [facility] MCH 29.4 27.1 - 33.3 pg [facility] MCHC 32.5 32.3 - 35.7 g/dL [facility] RDW CV 13.4 11.1 - 14.9 % [facility] RDW SD 44.7 35.7 - 48.1 fL [facility] NRBC abs 0.00 0.00 - 0.01 K/cumm [facility] Blood 05/19/2023 2:32 PM CDT 05/19/2023 7:34 PM CDT Betsy Mendez NP LAB BLOOD ORDERABLES Final Resul t Performing Organization Address City/[facility]/ZIP Co de Phone Number [facility]BBARD [address] Department [place] [address] * (ABNORMAL) Comprehensive metabolic panel (05/19/2023 2:32 PM CDT) Sodium 135 135 - 145 mmol/L Potassium, pl 3.7 3.3 - 4.9 mmol/L [facility] Chloride 101 97 - 110 mmol/L [facility] CO2 18(L) 22 - 32 mmol/L [facility] Anion gap 16(H) 2 - 15 mmol/L [facility] BUN 6 6 - 25 mg/dL [facility] Creatinine 0.52(L) 0.60 - 1.10 mg/dL [facility] Glucose 82 70 - 199 mg/dL [facility] Comment: Interpretive Data Fasting glucose >/= 126 [...] classification and Diagnosis of Diabetes Diabetes Care 202; 46: S19-S40. Current interpretive data was last [...] NP LAB BLOOD ORDERABLES Final Resul t [facility] [address] Department [place] [address] * (ABNORMAL) Lipid panel (05/19/2023 2:32 PM [...] revised on 2017. Triglycerides 95 <=149 mg/dL [facility]ARD Comment: Interpretive Data Ages [...] LAB BLOOD ORDERABLES Final Resul t [facility] HUBBARD [address] [facility] [address] * (ABNORMAL) Thyroid Function [place] (05/19/2023 2:32 PM CDT) [facility] TSH 5.38(H) 0.30 - 4.20 mcIUnit/mL Blood 05/19/2023 2:32 PM CDT 05/19/2023 7:34 PM CDT Betsy Mendez NP LAB BLOOD ORDERABLES Final Resul t Performing Organization Address [facility] Co de Phone Number [facility] HUBBARD [address] [facility] [address] * (ABNORMAL) Chepe-Mcgregor virus (EBV) antibody panel Blood (05/19/2023 2:32 PM CDT) [facility] EBV nuclear Ab Positive(A) Negative Comment: Indicates the presence of detectable IgG antibody to EBV Nuclear Antigen. Testing performed by: [facility], [address] [place]., [address] EBV VCA IgG Positive(A) Negative [facility] Comment: Indicates the presence of antibody; 90% of the adult population will have been infected with EBV sometime in the past. Testing performed by: [facility], [address] [place]., [address] EBV VCA IgM Negative Negative [facility] Comment:Testing performed by : [facility], [address] [place]., [address] EBV interp Past Infection [facility] Comment:Testing performed by : [facility], [address] [place] [address]., [address] Blood 05/19/2023 2:32 PM CDT 05/20/2023 9:47 AM CDT us Betsy Mendez NP LAB MICROBIOLOGY - GENERAL ORDER CYN Final Result Performing Organization Address City/[facility]/ZIP Co de Phone Number MILLYBRYAN HUBBARD [address] Department [place] [address] documented in this encounter Visit Diagnoses Diagnosis Pharyngitis, unspecified etiology Acquired hypothyroidism Unspecified hypothyroidism Lipid screening Screening for lipoid disorders Screening for diabetes mellitus Positive test examination or test, positive result documented in this encounter Care Teams Collar Setter Relationship Specialty Start Date End Date Betsy Mendez NP PCP - General Family Medicine 05/19/23 documented as of this encounter
--- OUTSIDE RECORDS SUMMARY | 2024-01-31 21:34 | XMS_ITS ---
Author Organization [facility] [place] Address [address] [place] [address] Care Team Providers Care Home Companion Name Role Phone zzHilda INACTIVE, zzIndiana INACTIVE Unavail Meggan Bauman CNM [phone] Allergies No Known Allergies REASON FOR VISIT 1st PN/ LMP:07/14 Social History Tobacco Use: Social History Observation Description Date Details (start date - stop date) Never Smoker NA - NA Tobacco Use: Question Answer Notes Are you a: nonsmoker Problems Problem Type SNOMED Code ICD Code Onset Dates Problem Status W/U Status Risk Notes Problem care (856366811) Supervision of other normal (Z34.80) Active confirm Encounters Encounter Location Date Provider Diagnosis [facility] [address] [facility] [address] 09/27/2022 Meggan Harrison Encounter for supervision of normal first in first trimester Z34.01 Assessments Encounter Date Diagnosis (ICD Code) Assessment Notes Treat ment Notes Treatment Clinical Notes 09/27/2022 Encounter for supervision of normal first in first trimester (ICD-10 - Z34.01) Plan Of Treatment Pending Test Test Name Order Date Type and Screen Prenatal1 09/27/2022 CBC - Complete Blood Count 09/27/2022 CHLAMYDIA & GC DNA AMPLIFICAT LAB.CHGCAM P 09/27/2022 HEPATITIS C ANTIBODY INDEX 09/27/2022 HIV 1and2 SCREEN LAB.HIVSCREEN 08/14/202 3 SYPHILIS (RPR SCREEN) 09/27/2022 RUBELLA IMMUNE STATUS IgG 09/27/2022 URINE CULTURE MARCIA.UCULT 09/27/2022 HBSAG 09/27/2022 Progress Notes * JANETH KAY MDOB: [birth year] (23 yo F)Acc No.[id number]:09/27/2022 UNLOCKED PROGRESS NOTE Progress Notes Patient:?JANETH KAY Provider:?Meggan Harrison CNM :2000???Age:21 Y???Sex:Female D ate:09/27/2022 Address:[address] [place] [address] [place] [address] Subjective: * Chief Complaints: * ???1. 1st PN/ LMP:07/14. * HPI: ???General:? -. ???Fall Risk Screening:?Fall Screening?:?No falls in the past year ???Pain Screening:?Patient has a complaint of acute or chronic pain?:?No ???Nursing note:? -. * Medical History:?, : yes. * Scrummaster History:?Date of Last Period?07/14/2022.? * OB History:?Total pregnancies?1.? # 1:?current.? * Surgical History:?Denies Pas t Surgical History. * Hospitalization/Major Diagno stic Procedure:?Denies Past Hospitalization. * Family History:?No Family Hi story documented..? * Social History:?General:?Tobacco Use?Are you a:?nonsmoker ?Learning Barriers / Special Needs?Barriers to Learning??No ?Hearing Impaired??No ?Vision Impaired??Yes ?:?Corrective lenses ?Cognitively Impaired??No ?Readiness to Learn??Yes ?Learning Preferences??No ?Learning Capabilities Present??Yes ?Emotional Barriers??No ?Special Devices??No * Allergies:?N.K.D.A. Objective: * Vitals:? Assessment: * Assessment: 1.?Encounter for supervision of normal first in first trimester - Z34.01 (Primary)??? Plan: * Treatment: * Procedure Codes:?0500F INITI AL CARE VISIT, 11232 OB US < 14 WKS SINGLE FETUS * Billing Information: * Visit Code:? * Procedure Codes:? 0500F INITIAL CARE VISIT. 27202 OB US < 14 WKS SINGLE FETUS. * Electronic signature of Sukhwinder Harrison CNM, CNM on 01/31/2024 at 10:33 PM EST Sign off status: Pending * Provider:?Meggan Harrison CNM Date:?09/28/19 23 Generated for Cheikh delacruz/Scottie/eTjeremysmitting on:?01/31/2024 10:33 PM EST History and Physical Notes * HPI (History of Present Illness) Category Sub-Category Detail Notes Pain Screening Patient has a compla int of acute or chronic pain :: No Fall Risk Screening Fall Screening :: No falls in the past year
--- OUTSIDE RECORDS SUMMARY | 2024-01-31 21:34 | XMS_ITS | Encounter Summary ---
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 * Telephone Encounter - Gonsalo Cordova CNA - 05/25/2023 9:02 AM CDT Haley from [facility] [phone] is calling to get paperwork faxed to them showing the patient is . documented in this encounter Plan of Treatment Not on file documented as of this encounter Visit Diagnoses Not on filedocumented in this encounter Care Teams Software Design Analyst Relationship Specialty Start Date End Date Betsy Mendez NP PCP - General Family Medicine 05/19/23 documented as of this encounter
--- OUTSIDE RECORDS SUMMARY | 2024-01-31 21:34 | XMS_ITS | Encounter Summary ---
Author Organization [facility] Healthcare Address [address] [place] [address] Care Team Providers Care Dyno Technician Name Role Phone Betsy Mendez NP Primary Care Provider [phone] Reason for Referral * Consultation (Routine) - Closed Specialty Diagnoses / Procedures Referred By Contkeke t Referred To Contact Gynecology Diagnoses Less than 8 weeks gestation of Acquired hypothyroidism Betsy Mendez NP Phone: tel: fax: Oh Conrad MD [address] [place] [address] Phone: tel: Referral ID Status Reason Start Date Expiration Date V isits Requested Visits Authorized [id number] Closed Specialty Services Required 05/20/2023 06/18/2024 1 1 Question Answer Please select the performing region: [facility] [[id number]] Please select the performing department: [facility] [[id number]] To provider: [place] CONRAD [[id number]] # of visits: 1 Encounter Details Date Type Department Care Team (Late st Contact Info) Description 05/20/2023 Orders Only [facility] Medical [facility] Primary Care at [address] [address] Betsy Mendez NP [address] [place] [address] Less than 8 weeks gestation of (Primary Dx); Acquired hypothyroidism Social History Tobacco Use Types Packs/Day Years [...] on file Legal Sex Female 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 QUALITY CONTROL 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 Gender Identity Female 01/23/2024 9:47 AM QUALITY CONTROL ENGINEER Sexual Orientation Straight 01/23/2024 9: 47 AM QUALITY CONTROL ENGINEER documented as of this encounter Ordered Prescriptions Prescription Sig Dispense Quantity Refills Last Filled Start Date End Date vit 72-vcak-fixug-dha 18-1-350 mg capsuleIndications :Less than 8 weeks gestation of Take 1 capsule by mouth daily 100 capsule 3 05/20/2023 levothyroxine (SYNTHROID) 50 mcg tablet Take 1 tablet (50 mcg total) by mouth daily 90 tablet 1 05/20/2023 documented in this encounter Plan of Treatment Scheduled Referrals Name Type Priority Associated Diagnoses Orde r Schedule Ambulatory referral to Gynecology Outpatient Referral Routine Less than 8 weeks gestation of Acquired hypothyroidism Expected: 06/03/2023 (Approximate), Expires: 05/19/2024 documented as of this encounter Visit Diagnoses Diagnosis Less than 8 weeks gestation of - Primary Acquired hypothyroidism Unspecified hypothyroidism documented in this encounter Discontinued Medications Medication Sig Discontinue Reason Start Date End Da te levothyroxine (SYNTHROID) 25 mcg tablet 05/14/19 24 05/20/2023 documented as of this encounter Care Teams Dyno Technician Relationship Specialty Start Date End Date Betsy Mendez NP PCP - General Family Medicine 05/19/23 documented as of this encounter
--- OUTSIDE RECORDS SUMMARY | 2024-01-31 21:34 | XMS_ITS | Encounter Summary ---
Author Organization [facility] Address [address] [place] [address]. [place], [place] [address] [place] [address] Care Team Providers Care Fire Marshal Refinery Name Role Phone Betsy Mendez [facility] Primary Care Provider [phone] Encounter Details Date Type Department Care Team (Latest Contact Info) Description 05/21/2023 Travel Social History Tobacco Use Types Packs/Day [...] on filedocumented in this encounter Care Teams Fire Marshal Refinery Relationship Specialty Start Date End Date Betsy Mendez [facility] PCP - General NURSE PRACTITIONER 05/18/23 documented as of this encounter
--- OUTSIDE RECORDS SUMMARY | 2024-02-01 00:16 | XMS_ITS ---
Author Organization [facility] [place] Address [address] [place] [address] Care Team Providers Care Gardening Supervisor Name Role Phone zzHilda INACTIVE, zzIndiana INACTIVE Unavail Meggan Bauman CNM [phone] Allergies No Known Allergies REASON FOR VISIT 1st PN/ LMP:07/14 Social History Tobacco Use: Social History Observation Description Date Details (start date - stop date) Never Smoker NA - NA Tobacco Use: Question Answer Notes Are you a: nonsmoker Problems Problem Type SNOMED Code ICD Code Onset Dates Problem Status W/U Status Risk Notes Problem care (583237116) Supervision of other normal (Z34.80) Active confirm Encounters Encounter Location Date Provider Diagnosis [facility] [address] [place] [place] [address] 09/27/2022 Meggan Harrison Encounter for supervision of [...] JANETH KAY MDOB: [birth year] (23 yo F)Acc No.[id number]:09/27/2022 UNLOCKED PROGRESS NOTE Progress Notes Patient:?JANETH KAY Provider:?Meggan Harrison CNM :2000???Age:21 Y???Sex:Female D ate:09/27/2022 Address:[address] [place] [address] [place] [address] Subjective: * Chief Complaints: * ???1. 1st PN/ LMP:07/14. * HPI: ???General:? -. ???Fall Risk Screening:?Fall Screening?:?No falls in the past year ???Pain Screening:?Patient has a complaint of acute or chronic pain?:?No ???Nursing note:? -. * Medical History:?, : yes. 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 * OB History:?Total [...] * Procedure Codes:?0500F INITI AL CARE VISIT, 98272 OB US < 14 WKS SINGLE FETUS * Billing Information: * Visit Code:? * Procedure Codes:? 0500F INITIAL CARE VISIT. 32320 OB US < 14 WKS SINGLE FETUS. * Electronic signature of Sukhwinder Harrison CNM, CNM on 02/01/2024 at 01:16 AM EST Sign off status: Pending * Provider:?Meggan Harrison CNM Date:?09/28/19 23 Generated for Cheikh delacruz/Scottie/eTransmitting on:?02/01/2024 01:16 AM EST History and Physical Notes * HPI (History of Present Illness) Category Sub-Category Detail Notes Pain Screening Patient has a compla int of acute or chronic pain :: No Fall Risk Screening Fall Screening :: No falls in the past year
--- OUTSIDE RECORDS SUMMARY | 2024-02-01 00:16 | XMS_ITS | CONTINUITY OF CARE DOCUMENT ---
Author Name lora paulino Address Unknown Organization [facility] Address [address] [place] [address] Phone [phone] Care Team Providers Care Biological Aide Name Role Phone Jacob Juarez MD Unavailable TANNA CARDENAS MD Unavailable [phone] INSURANCE PROVIDERS Payer name Policy type / Coverage type [place]aranzi red green party ID [employer]ETNA [facility] Medicaid [id number]
--- OUTSIDE RECORDS SUMMARY | 2024-02-01 00:16 | XMS_ITS ---
Author Organization [facility] Address [address] [place] [address] [place] [address] Care Team Providers Care Combat Control Name Role Phone Volodymyr INACTIVE, López INACTIVE Unavail able Unavailable Alyssa Leroy Unavailable [phone] REASON FOR VISIT new to establish Encounters Encounter Location Date Provider Diagnosis [facility] [address] [place] [place] [address] [place] [address] 09/02/2022 Alyssa Leroy Plan Of Treatment No Information Progress Notes * JANETH KAY MDOB: [birth year] (23 yo F)Acc No.[id number]:09/02/2022 UNLOCKED PROGRESS NOTE Progress Notes Patient:?RAHUL JANETH [place] Provider:?Alyssa Barragan PA-C :2000???Age:21 Y???Sex:Female D ate:09/02/2022 [address] [facility] [facility] Subjective: * Chief Complaints: * ???1. New to establish. * Medical History:? Objective: * Vitals:? Assessment: Plan: * Treatment: * Billing Information: * Visit Code:? * Procedure Codes:? * Electronic signature of Trever Leroy PA-C, [id number] on 02/01/2024 at 01:16 AM EST Sign off status: Pending * Provider:?Aylssa Barragan PA-C Date:?0 09/02/2022 Generated for Cheikh delacruz/Scottie/Elias on:?02/01/2024 01:16 AM EST
--- OUTSIDE RECORDS SUMMARY | 2024-02-01 00:16 | XMS_ITS | Patient Health Record ---
Author Organization [facility] Address [address] [address] [place] [address] Care Team Providers Care Register Repairer Name Role Phone [employer] INACTIVE, zz[employer]ingle INACTIVE Unavail able Unavailable Allergies No Known [...] Status W/U Status Risk Notes Problem care ([id number]) Supervision of other normal (Z34.80) Active confirm Plan Of Treatment No Information Insurance Providers Payer Name Payer Address Payer Phone Subscriber Number Group Number Insured Name Patient Relationship to Insured Coverage Start Date Coverage End Date DO NOT USE INVALID BC/BS, [employer] [address] [place] [address] [id number] JANETH KAY 18 SELF / SAME PATIENT
--- OUTSIDE RECORDS SUMMARY | 2024-02-01 00:17 | XMS_ITS | Clinical Summary ---
Author Organization [facility] Address [address] [place] [address]. [place] [address] [place] [address] Care Team Providers Care Ham Doctor Name Role Phone Betsy Mendez [facility] Primary Care Provider +1- [phone] Allergies No known active allergies Medications No [...] patient's age to complete this topic [place] [address] [place] [address] Care Teams Ham Doctor Relationship Specialty Start Date End Date Betsy Mendez, GEOMAGNETIST- PCP - General NURSE PRACTITIONER 05/18/23
--- OUTSIDE RECORDS SUMMARY | 2024-02-01 00:17 | XMS_ITS | Encounter Summary ---
Author Organization [facility] Address [address] [place] [address]. [place], [place] [address] [place] [address] Care Team Providers Care Nurse Care Manager Name Role Phone Betsy Mendez [facility] Primary Care Provider +1- [phone] Encounter Details Date Type Department Care Team [...] on filedocumented in this encounter Care Teams Nurse Care Manager Relationship Specialty Start Date End Date Betsy Mendez [facility] PCP - General NURSE PRACTITIONER 05/18/23 documented as of this encounter
--- OUTSIDE RECORDS SUMMARY | 2024-02-01 00:17 | XMS_ITS | Encounter Summary ---
Author Organization [facility] Address [address] [place] [address]. [place] [address] [place] [address] Care Team Providers Care Emissions Engineer Name Role Phone Betsy Mendez [facility] Primary Care Provider +1- [phone] Reason for Visit * Reason Comments Sore Throat Encounter Details Date Type Department Care Team (Late st Contact Info) Description 05/18/2023 11:38 AM CDT - 05/18/2023 2:12 PM CDT Emergency [facility] [place] [address] Allyson Deshpande, JOSÉ MIGUEL [address] [id number] Sore Throat Discharge Disposition: Home or Self [...] the ER if symptoms do worsen. Please pickling grader and start your antibiotic as soon as [...] Care Everywhere. * Sore throat in adults (Saudi Arabian) * Peritonsillar Abscess, Adult ([place]) documented in this encounter Medications at Time [...] MIGUEL Simmons - 05/18/2023 11:20 AM CDT [place], [place] EMERGENCY DEPARTMENT ENCOUNTER HISTORICAL INFORMATION Primary Care Doctor: BETSY MENDEZ [facility]- Patient information was obtained primarily from the patient, nursing notes. History/Exam limitations: None Provider at Bedside Date/Time Event User Comments 05/18/23 1120 Provider at Bedside Assessing Patient ALLYSON DESHPANDE -- CHIEF COMPLAINT Sore Throat Chief Complaint Patient presents with Sore Throat HPI Drew Reis is a 22-year-old female who presents from [facility] due to concern fortonsillar abscess. Pt reports [...] 05/18/2023, Until 05/28/2023, Eprescribe Class: Eprescribe Pharmacy: [facility]/pharmacy #[id number] - [place], [place] - [address] [facility] [facility] (Ph #: [phone]) JOSÉ MIGUEL SIMMONS PA 05/18/23 1124 JOSÉ MIGUEL Simmons 05/18/23 1544 Cosigned by Leoabrdo Peoples MD at 05/19/2023 7:08 AM CDT [...] SPECIMEN TYPE NASAL 05/18/2023 12:06 PM CDT [facility] INFLUENZA A NEGATIVE NEGATIVE 05/18/2023 12:28 PM CDT [facility] INFLUENZA B NEGATIVE NEGATIVE 05/18/2023 12:28 PM CDT [facility] Comment: Interpretation: Negative for Influenza [...] CDT Allyson VALDEZ MICROBIOLOGY [facility] Final Result Performing Organization Address City/[facility]/ZIP Co de Phone Number [facility] [address] [place] [address], [place] [phone] * CORONAVIRUS (COVID 19) (05/18/2023 12:00 PM CDT) CORONAVIRUS SARS COV 2 RNA NEGATIVE NEGATIVE 05/18/2023 12:28 PM CDT [facility] Comment: NEGATIVE RESULTS DO NOT [...] SPECIMEN TYPE NASAL 05/18/2023 12:00 PM CDT [facility] NASAL STRUCTURE / Unknown 05/18/2023 12:00 PM CDT Allyson VALDEZ MICROBIOLOGY - GENERAL ORDE RABLES Final Result [facility] [address] [place] [address], [place] [phone] * RAPID STREP A (05/18/2023 11:49 AM CDT) SPECIMEN TYPE THROAT 05/18/2023 11:51 AM CDT [facility] RAPID STREP TEST NEGATIVE NEGATIVE 05/18/2023 12:28 PM CDT [facility] STRUCTURE OF ANTERIOR PORTION OF NECK / Unknown 05/18/2023 11:49 AM CDT Allyson VALDEZ MICROBIOLOGY - GENERAL [place] SOLANO Final Result [facility] [address] [place] [address], * (ABNORMAL) COMPREHENSIVE METABOLIC PANEL (05/18/2023 11:49 AM CDT) GLUCOSE 86 70 - 99 MG/DL 05/18/2023 12:49 PM CDT [facility] BUN 5(L) 7 - 18 MG/DL 05/18/2023 12:49 PM CDT [facility] CREATININE S/P/B 0.64 0.55 - 1.02 MG/DL 05/18/2023 12:49 PM CDT [facility] SODIUM S/P/B 136 136 - 145 MMOL/L 05/18/2023 12:49 PM CDT [facility] POTASSIUM S/P/B 3.8 3.5 - 5.1 MMOL/L 05/18/2023 12:49 PM CDT [facility] CHLORIDE S/P/B 106 100 - 108 MMOL/L 05/18/2023 12:49 PM CDT [facility] CO2 24.7 21 - 32 MMOL/L 05/18/2023 12:49 PM CDT [facility] CALCIUM S/P/B 9.7 8.5 - 10.1 MG/DL 05/18/2023 12:49 PM T [facility] BILIRUBIN TOTAL S/P/B 0.4 0.2 - 1.2 MG/DL 05/18/2023 12:49 PM T [facility] Comment: THIS ASSAY IS NOT RECOMMENDED FOR PATIENTS UNDERGOING TREATMENT WITH ELTROMBOPAG DUE TO THE POTENTIAL FOR FALSELY ELEVATED RESULTS. TOTAL PROTEIN S/P/B 9.0(H) 6.4 - 8.2 G/DL 05/18/2023 12:49 PM T [facility] ALBUMIN S/P/B 4.1 3.4 - 5.0 G/DL 05/18/2023 12:49 PM T [facility] AST 20 15 - 37 U/L 05/18/2023 12:49 PM [facility] ALT 35 14 - 55 U/L 05/18/2023 12:49 PM T [facility] ALKALINE PHOSPHATASE S/P/B 55 50 - 136 U/L 05/18/2023 12:49 PM [facility] ANION GAP 5.3 5 - 15 MMOL/L 05/18/2023 12:49 PM [facility] BUN CREATININE RATIO 7.8 6 - 26 05/18/2023 12:49 PM T [facility] A/G RATIO 0.8(L) 1.0 - 2.0 RATIO 05/18/2023 12:49 PM [facility] GFR ESTIMATE >90 >90 ML/MIN/1.7 3 M2 05/18/2023 12:49 PM [facility] Comment: NOTE: eGFR is not calculated for patients <18 years of age. This is an estimated GFR calculation using the new CKD EPI creatinine equation without race and so does not require a correction factor for race. This estimated GFR should not be used for calculating drug doses. 05/18/2023 11:4 9 AM CDT [facility] VALDE[facility] Final Resul t [facility] [address] [place] [address], * (ABNORMAL) CBC W/DIFF AUTOMATED (05/18/2023 11:49 AM CDT) WBC 12.19(H) 4.5 - 11.0 x10'3/uL 05/18/2023 12:17 PM CDT [facility] RBC 5.04 4.20 - 5.40 x10'6/uL 05/18/2023 12:17 PM CDT [facility] HGB 14.8 12.0 - 16.0 G/DL 05/18/2023 12:17 PM CDT [facility] HCT 44.8 38.0 - 48.0 % 05/18/2023 12:17 PM CDT [facility] MCV 88.9 81.0 - 99.0 FL 05/18/2023 12:17 PM CDT [facility] MCH 29.4 27.0 - 31.0 PG 05/18/2023 12:17 PM CDT [facility] MCHC 33.0 32.0 - 36.0 G/DL 05/18/2023 12:17 PM CDT [facility] RDW 13.3 11.5 - 14.5 % 05/18/2023 12:17 PM CDT [facility] PLT 280 130 - 400 x10'3/uL 05/18/2023 12:17 PM CDT [facility] MPV 11.5 9.3 - 12.2 FL 05/18/2023 12:17 PM CDT [facility] DIFFERENTIAL TYPE AUTOMATED DIFFERENTIAL 05/18/2023 12:17 PM CDT [facility] NEUTROPHILS % 70.6 % 05/18/2023 12:17 PM CDT [facility] LYMPHOCYTES % 17.5 % 05/18/2023 12:17 PM CDT [facility] MONOCYTES % 11.3 % 05/18/2023 12:17 PM CDT [facility] EOSINOPHILS 0.1 % 05/18/2023 12:17 PM CDT [facility] BASOPHILS 0.2 % 05/18/2023 12:17 PM CDT [facility] IMMATURE GRANS % 0.3 % 05/18/19 12:17 PM CDT [facility] ABS. NEUTROPHILS 8.60(H) 1.80 - 7.70 x10'3/uL 05/18/2023 12:17 PM CDT [facility] ABS. LYMPHOCYTES 2.13 1.00 - 4.80 x10'3/uL 05/18/2023 12:17 PM CDT [facility] ABS. MONOCYTES 1.38(H) 0.24 - 0.86 x10'3/uL 05/18/2023 12:17 PM CDT [facility] ABS. EOSINOPHILS 0.01(L) 0.04 - 0.36 x10'3/uL 05/18/2023 12:17 PM CDT [facility] ABS. BASOPHILS 0.03 0.01 - 0.08 x10'3/uL 05/18/2023 12:17 PM CDT [facility] ABS. IMMATURE GRANULOCYTES 0.04 0.00 - 0.49 x10'3/uL 05/18/2023 12:17 PM CDT [facility] 05/18/2023 11:4 9 AM CDT Allyson VALDEZ [facility]OR[facility] Final Resul t [facility] [address] [place] [address], documented in this encounter Visit Diagnoses Diagnosis [...] documented as of this encounter Care Teams Emissions Engineer Relationship Specialty Start Date End Date Betsy Mendez FNP- PCP - General NURSE PRACTITIONER 05/18/23 documented as of this encounter
--- OUTSIDE RECORDS SUMMARY | 2024-02-01 00:17 | XMS_ITS | Encounter Summary ---
Author Organization [facility] Address [address] [place] [address]. [place] [address] [place] [address] Care Team Providers Care Emergency Management System Director Name Role Phone Betsy Mendez [facility] Primary Care Provider +1- [phone] Reason for Visit * Reason Comments Abdominal Pain Encounter Details Date Type Department Care Team (Late st Contact Info) Description 05/21/2023 11:23 PM CDT - 05/22/2023 3:57 AM CDT Emergency [facility] [place] [address] Oh Wagner, DO [address] [place] [id number] Abdominal Pain Discharge Disposition: Home or Self [...] may worsen your medical condition and cause senior care disabilities. Make the appointment today sothere is [...] * Urinary Tract Infection Discharge Instructions, Adult (Mauritian) * ??? The First Month (Mauritian) * ??? The Second Month (Mauritian) documented in this encounter Medications at Time [...] 2. Less than 8 weeks gestation of ([facility]) FIRST TRIMESTER 3. Urinary tract infection with hematuria, site unspecified URINARY TRACT INFECTIOUS DISEASE Disposition: Discharge ARCHITECTURAL ADMINISTRATIVE ASSISTANT This examination was transcribed using the [employer] voice recognition system without human security operations center analyst. In an effort to expedite patient care, this report has not been adjusted for typographical, grammatical, and syntax by a trained biomedical engineering internship. OH WAGNER DO 05/22/2023 Oh Wagner DO 05/28/23 0247 hO Wagner DO 06/16/23 0556 * Avni Holliday PA-C - 05/21/2023 10:57 PM CDTSummary: abdominal pain [place], [place] EMERGENCY DEPARTMENT ENCOUNTER Medical Screening Examination [...] were ordered to facilitate patient care. AVNI HOLLIDAY PA-C 05/21/2023 Avni Holliday PA-C 05/21/23 2258 [...] URINE CLEAN CATCH 05/22/2023 12:05 AM CDT [facility] SPECIAL REQUESTS NO SPECIAL REQUEST 05/22/2023 12:05 AM CDT [facility] CULTURE RESULT NO GROWTH 2 DAYS 05/24/2023 8:32 AM CDT [facility] URINE SPECIMEN OBTAINED BY CLEAN CATCH PROCEDURE / Unknown 05/21/2023 11:50 PM CDT 05/22/2023 12:04 AM CDT Avni Holliday PA-C MICROBIOLOGY - GENERAL ORDJosette SOLANO Final Result [facility] [address] [place] [address], * (ABNORMAL) URINALYSIS (05/21/2023 11:50 PM CDT) SPECIMEN TYPE URINE CLEAN CATCH 05/21/2023 11:49 PM CDT [facility] COLOR (U) YELLOW 05/22/2023 12:05 AM CDT [facility] TRANSPARENCY CLEAR 05/22/2023 12:05 AM CDT [facility] SPECIFIC GRAVITY (U) 1.020 1.001 - 1.030 05/22/2023 12:05 AM CDT [facility] U PH 5.5 5.0 - 9.0 05/22/2023 12:05 AM CDT [facility] LEUKOCYTES (U) 25(A) NEGATIVE 05/22/2023 12:05 AM T [facility] NITRITES NEGATIVE NEGATIVE 05/22/2023 12:05 AM T [facility] PROTEIN RANDOM (U) 10 <30 MG/DL 05/22/2023 12:05 AM T [facility] GLUCOSE (U) NORMAL NORMAL MG/DL 05/22/2023 12:05 AM T [facility] KETONES MG/DL (U) 60(A) NEGATIVE MG/DL 05/22/2023 12:05 AM T [facility] UROBILINOGEN NORMAL NORMAL MG/DL 05/22/2023 12:05 AM [facility] BILIRUBIN (U) NEGATIVE NEGATIVE MG/DL 05/22/2023 12:05 AM T [facility] BLOOD (U) NEGATIVE NEGATIVE 05/22/2023 12:05 AM [facility] CULTURE & SENSITIVITY INDICATED? SPECIMEN SETUP FOR CULTURE 05/22/2023 12:05 AM T [facility] MUCUS RARE /LPF 05/22/2023 12:05 AM [facility] WBC/HPF 5 <6 /HPF 05/22/2023 12:05 AM T [facility] RBC/HPF 11(H) <6 /HPF 05/22/2023 12:05 AM T [facility] SQUAMOUS EPITHELIALS RARE /HPF 05/22/2023 12:05 AM T [facility] URINE SPECIMEN OBTAINED BY CLEAN CATCH PROCEDURE / Unknown 05/21/2023 11:50 PM CDT us Avni Holliday PA-C URINE ORDERABLES Final Resu lt [facility] [address] [place] [address], * (ABNORMAL) POCT urine (05/21/2023 11:48 PM CDT) URINE HCG TEST POSITIVE(A ) Internal Control: VALID Avni Holliday PA-C POINT OF CARE TEST ORDERABL ES Final Result * HCG QUANT (SERUM)-CHORIONIC GONADOTROPIN (05/21/2023 11:40 PM CDT) HCG QUANTITATIVE 8,492 MIU/ML 05/22/19 24 12:36 AM CDT [facility] Comment: WEEKS OF ? REFERENCE RANGES [...] Avni Holliday PA-C LABORATORY Final Resul t [facility] [address] [place] [address], [place] [phone] * LIPASE (05/21/2023 11:40 PM CDT) LIPASE 18 13 - 75 UNITS/L 05/22/2023 12:32 AM CDT [facility] 05/21/2023 11:4 0 PM CDT Avni Holliday PA-C LABORATORY Final Resul t [facility] [address] [place] [address], [place] [phone] * (ABNORMAL) COMPREHENSIVE METABOLIC PANEL (05/21/2023 11:40 PM CDT) Pathologist [facility] GLUCOSE 89 70 - 99 MG/DL 05/22/2023 12:32 AM CDT [facility] BUN 9 7 - 18 MG/DL 05/22/2023 12:32 AM CDT [facility] CREATININE S/P/B 0.59 0.55 - 1.02 MG/DL 05/22/2023 12:32 AM CDT [facility] SODIUM S/P/B 137 136 - 145 MMOL/L 05/22/2023 12:32 AM CDT [facility] POTASSIUM S/P/B 3.8 3.5 - 5.1 MMOL/L 05/22/2023 12:32 AM CDT [facility] Comment:SLIGHT HEMOLYSIS, RE SULT MAY BE AFFECTED. CHLORIDE S/P/B 104 100 - 108 MMOL/L 05/22/2023 12:32 AM CDT [facility] CO2 24.8 21 - 32 MMOL/L 05/22/2023 12:32 AM CDT [facility] CALCIUM S/P/B 9.8 8.5 - 10.1 MG/DL 05/22/2023 12:32 AM T [facility] BILIRUBIN TOTAL S/P/B 0.4 0.2 - 1.2 MG/DL 05/22/2023 12:32 AM [facility] Comment: THIS ASSAY IS NOT RECOMMENDED FOR PATIENTS UNDERGOING TREATMENT WITH ELTROMBOPAG DUE TO THE POTENTIAL FOR FALSELY ELEVATED RESULTS. TOTAL PROTEIN S/P/B 8.7(H) 6.4 - 8.2 G/DL 05/22/2023 12:32 AM T [facility] ALBUMIN S/P/B 3.5 3.4 - 5.0 G/DL 05/22/2023 12:32 AM T [facility] AST 22 15 - 37 U/L 05/22/2023 12:32 AM [facility] Comment:SLIGHT HEMOLYSIS, RE SULT MAY BE AFFECTED. ALT 26 14 - 55 U/L 05/22/2023 12:32 AM T [facility] ALKALINE PHOSPHATASE S/P/B 51 50 - 136 U/L 05/22/2023 12:32 AM [facility] ANION GAP 8.2 5 - 15 MMOL/L 05/22/2023 12:32 AM [facility] BUN CREATININE RATIO 15.3 6 - 26 05/22/2023 12:32 AM [facility] A/G RATIO 0.7(L) 1.0 - 2.0 RATIO 05/22/2023 12:32 AM [facility] GFR ESTIMATE >90 >90 ML/MIN/1.7 3 M2 05/22/2023 12:32 AM [facility] Comment: NOTE: eGFR is not calculated for patients <18 years of age. This is an estimated GFR calculation using the new CKD EPI creatinine equation without race and so does not require a correction factor for race. This estimated GFR should not be used for calculating drug doses. 05/21/2023 11:4 0 PM CDT Avni Holliday PA-C LABORATORY Final Resul t [facility] [address] [place] [address], * (ABNORMAL) CBC W/DIFF AUTOMATED (05/21/2023 11:40 PM CDT) WBC 12.33(H) 4.5 - 11.0 x10'3/uL 05/22/2023 12:29 AM CDT [facility] RBC 4.78 4.20 - 5.40 x10'6/uL 05/22/2023 12:29 AM CDT [facility] HGB 14.1 12.0 - 16.0 G/DL 05/22/2023 12:29 AM CDT [facility] HCT 41.1 38.0 - 48.0 % 05/22/2023 12:29 AM CDT [facility] MCV 86.0 81.0 - 99.0 FL 05/22/2023 12:29 AM CDT [facility] MCH 29.5 27.0 - 31.0 PG 05/22/2023 12:29 AM CDT [facility] MCHC 34.3 32.0 - 36.0 G/DL 05/22/2023 12:29 AM CDT [facility] RDW 12.7 11.5 - 14.5 % 05/22/2023 12:29 AM CDT [facility] PLT 310 130 - 400 x10'3/uL 05/22/2023 12:29 AM CDT [facility] MPV 11.6 9.3 - 12.2 FL 05/22/2023 12:29 AM CDT [facility] DIFFERENTIAL TYPE MANUAL DIFFERENTIAL 05/22/2023 12:30 AM CDT [facility] SEG NEUTROPHILS 60 % 12:30 AM CDT [facility] LYMPHOCYTES 28 % 05/22/2023 12:30 AM CDT [facility] MONOCYTES 12 % 05/22/2023 12:30 AM CDT [facility] ABS. NEUTROPHILS 7.40 1.80 - 7.70 x10'3/uL 05/22/2023 12:30 AM CDT [facility] ABS. LYMPHOCYTES 3.45 1.00 - 4.80 x10'3/uL 05/22/2023 12:30 AM CDT [facility] ABS. MONOCYTES 1.48(H) 0.24 - 0.86 x10'3/uL 05/22/2023 12:30 AM CDT [facility] RBC MORPHOLOGY RBC MORPHOLOGY APPEARS NORMAL. SLIDE REVIEWED. 05/22/2023 12:30 AM CDT [facility] PLT EST. ADEQUATE 05/22/2023 12:30 AM CDT [facility] 05/21/2023 11:4 0 PM CDT us Avni Holliday PA-C LABORATORY Final Resul t [facility] [address] [place] [address], [place] [phone] documented in this encounter Visit Diagnoses Diagnosis Generalized abdominal pain- Primary Abdominal pain, generalized Less than 8 weeks gestation of ([facility]) state, incidental Urinary tract infection with [...] RN) documented in this encounter Care Teams Emergency Management System Director Relationship Specialty Start Date End Date Betsy Mendez FNP-EVELYN PCP - General NURSE PRACTITIONER 05/18/23 documented as of this encounter
--- OUTSIDE RECORDS SUMMARY | 2024-02-01 00:17 | XMS_ITS | Encounter Summary ---
Author Organization [facility] Address [address] [place] [address]. [place], [place] [address] [place] [address] Care Team Providers Care Director Global Intelligence Name Role Phone Betsy Mendez [facility] Primary Care Provider [phone]- [phone] Encounter Details Date Type Department Care Team [...] documented as of this encounter Care Teams Director Global Intelligence Relationship Specialty Start Date End Date Betsy Mendez [facility] PCP - General NURSE PRACTITIONER 05/18/23 documented as of this encounter
--- OUTSIDE RECORDS SUMMARY | 2024-02-01 00:18 | XMS_ITS | Clinical Summary ---
Author Organization [address] Address [address] [place] [id number] Care Team Providers Care Green Meat Grader Name Role Phone MendezBetsy moran MIGUEL Primary Care Provider [phone] Allergies No known active allergies Medications al & mag hydroxide with simethicone-dip henhydramine-li docaine (MAGIC MOUTHWASH) suspension 1-1-1 Swish and spit 10 mL every 4 (four) hours as needed (throat pain) 240 mL 05/19/2023 Active levothyroxine (SYNTHROID) 50 mcg tablet Take 1 tablet (50 mcg total) by mouth daily 90 tablet 1 05/20/2023 Active vit 45-cvpv-fgghl-d dupree 18-1-350 mg capsuleIndicati ons:Less than 8 [...] couple different options in the area including [facility] versus [facility] or [facility] Pharyngitis 05/19/2023 Assessment & Plan (05/19/2023 3:17 [...] on file Legal 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
--- OUTSIDE RECORDS SUMMARY | 2024-02-01 00:18 | XMS_ITS | Encounter Summary ---
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 Gender Identity Female 01/23/2024 9:47 AM PHOTO COLORER Sexual Orientation Straight 01/23/2024 9: 47 AM PHOTO COLORER documented as of this encounter Medications at [...] CDT 05/19/2023 7:55 PM CDT us Betsy Mendez NP LAB BLOOD ORDERABLES Final Resul t NOBLE [address] Department [place] [address] * T4, free (05/19/2023 2:32 PM CDT) Free T4 0.93 0.90 - 1.70 ng/dL Blood 05/19/2023 2:32 PM CDT 05/19/2023 7:55 PM CDT us Betsy Vanessa RIVERA LAB BLOOD ORDERABLES Final Resul t NOBLE [address] Department [place] [address] * (ABNORMAL) Differential, auto (05/19/2023 2:32 PM CDT) Neutrophil abs 9.4(H) 1.5 - 6.5 K/cumm Imm gran abs 0.1 0.0 - 0.1 K/cumm [facility] Lymphocyte abs 2.2 0.8 - 3.3 K/cumm [facility] Monocyte abs 1.6(H) 0.2 - 0.8 K/cumm [facility] Eosinophil abs 0.0 0.0 - 0.5 K/cumm [facility] Basophil abs 0.1 0.0 - 0.1 K/cumm [facility] Neutrophil pct 70.6 % [facility] Comment: Interpretive Data Percent cell count reference ranges are not reported, since discordance with absolute values may lead to misinterpretation of CBC data. Current Interpretive Data was last revised on 2017. Imm gran pct 0.5 % [facility] Comment: Interpretive Data Percent cell count reference ranges are not reported, since discordance with absolute values may lead to misinterpretation of CBC data. Current Interpretive Data was last revised on 2017. Lymphocyte pct 16.2 % [facility] Comment: Interpretive Data Percent cell count reference ranges are not reported, since discordance with absolute values may lead to misinterpretation of CBC data. Current Interpretive Data was last revised on 2017. Monocyte pct 12.2 % [facility] Comment: Interpretive Data Percent cell count reference ranges are not reported, since discordance with absolute values may lead to misinterpretation of CBC data. Current Interpretive Data was last revised on 2017. Eosinophil pct 0.1 % [facility] Comment: Interpretive Data Percent cell count reference [...] ORDERABLES Final Resul t Performing Organization Address [facility] de Phone Number NOBLE [address] [place] [address] * (ABNORMAL) hCG, blood, quantitative (05/19/2023 2:32 PM CDT) Pathologist [facility] hCG, quant 9,744.0(H ) 0.0 - 5.0 [...] ORDERABLES Final Resul t Performing Organization Address [facility] de Phone Number MILLYBRYAN [address] [facility] [place] [address] * (ABNORMAL) Hemoglobin A1c (05/19/2023 2:32 PM CDT) Pathologist [facility] Hgb A1C 5.8(H) 4.0 - 5.6 % Estimated Average Glucose 120 mg/dL NOBLE HUBBARD Comment: The ADA recommends reporting an estimated Average Glucose (eAG) with all Hemoglobin A1c results using the equation derived from a study of 507 normal and diabetic adults. ??Minority populations were underrepresented and children were not included. ?? (Diabetes Care 31:6028-8107, 2008). ??The eAG is not equivalent to a fasting glucose. Blood 05/19/2023 2:32 PM CDT 05/19/2023 7:34 PM CDT Betsy Mendez NP LAB BLOOD ORDERABLES Final Resul t Performing Organization Address City/[facility] Co de Phone Number NOBLE HUBBARD [address] Department of [employer] [place], [place] [id number] * (ABNORMAL) CBC with auto differential (05/19/2023 [...] ORDERABLES Final Resul t Performing Organization Address City/[facility]/ZIP Co de Phone Number NOBLE HUBBARD [address] Department [place] [address] * (ABNORMAL) Comprehensive metabolic panel [...] NP LAB BLOOD ORDERABLES Final Resul t [facility] [address] Department [place] [address] * (ABNORMAL) Lipid panel (05/19/2023 2:32 [...] BLOOD ORDERABLES Final Resul t NOBLE HUBBARD [address] [facility] [place] [address] * (ABNORMAL) Thyroid Function [place] (05/19/2023 2:32 PM CDT) [facility] TSH 5.38(H) 0.30 - 4.20 mcIUnit/mL Blood 05/19/2023 2:32 PM CDT 05/19/2023 7:34 PM CDT Betsy Mendez NP LAB BLOOD ORDERABLES Final Resul t Performing Organization Address [facility] Co de Phone Number NOBLE HUBBARD [address] [facility] [place] [address] * (ABNORMAL) Chepe-Mcgregor virus (EBV) antibody panel Blood (05/19/2023 2:32 PM CDT) [facility] EBV nuclear Ab Positive(A) Negative Comment: Indicates the presence of detectable IgG antibody to EBV Nuclear Antigen. Testing performed by: [facility], [address] [place] [address] EBV VCA IgG Positive(A) Negative [facility]ER[facility] Comment: Indicates the presence of antibody; 90% of the adult population will have been infected with EBV sometime in the past. Testing performed by: [facility], [address] [place] [address] EBV VCA IgM Negative Negative [facility] Comment:Testing performed by : [facility], [address] [place] [address] EBV interp Past Infection [facility] Comment:Testing performed by : [facility], [address] [place] [address]., [address] Blood 05/19/2023 2:32 PM CDT 05/20/2023 9:47 AM CDT us Betsy Mendez NP LAB MICROBIOLOGY - GENERAL ORDER CYN Final Result Performing Organization Address City/[facility]/ZIP Co de Phone Number MILLYBRYAN HUBBARD [address] Department [place] [address] documented in this encounter Visit Diagnoses Diagnosis Pharyngitis, unspecified etiology Acquired hypothyroidism Unspecified hypothyroidism Lipid screening Screening for lipoid disorders Screening for diabetes mellitus Positive test examination or test, positive result documented in this encounter Care Teams [place] Pitter Relationship Specialty Start Date End Date Betsy Mendez NP PCP - General Family Medicine 05/19/23 documented as of this encounter
--- OUTSIDE RECORDS SUMMARY | 2024-02-01 00:18 | XMS_ITS | Encounter Summary ---
Author Organization [facility] Healthcare Address [address] [place] [address] Care Team Providers Care Speech Correction Assistant Name Role Phone Mendez, Betsy MIGUEL Primary Care Provider Reason for Referral * Diagnostic Imaging (Routine) - Closed Specialty Diagnoses / Procedures Referred By Matt rodas Referred To Contact Diagnoses Threatened Procedures OB Transvaginal Mauricio Snell MD [address] [place] [address] [address] [address] Phone: tel: fax: [employer] [address] [place] [address] [place] [phone] Phone: tel: fax: Referral ID Status Reason Start Date Expiration Date Visits Re quested Visits Authorized [id number] Closed 05/31/2023 06/29/2024 1 1 Reason for Visit * Reason Onset Date Comments History of Miscarriage, 05/20/2023 Encounter Details Date Type Department Care Team (Late st Contact Info) Description 05/20/2023 Telephone [facility] [address] [place] [address] [place] [phone] Yesenia Harding RN History of Miscarriage, [...] on file Legal Sex Female 10:38 AM CHANNEL MARKETING SPECIALIST Gender Identity Female 01/23/2024 9:47 AM CHANNEL MARKETING SPECIALIST Sexual Orientation Straight 01/23/2024 9: 47 AM CHANNEL MARKETING SPECIALIST documented as of this encounter Miscellaneous Notes [...] 05/20/2023 9:54 AM CDT Betsy Vanessa, NARCISA BUSHING AND BROACH OPERATOR, reached out today stating that she saw [...] MD LAB BLOOD ORDERABLES Final Result NOBLE [address] [place] [address] * US OB Transvaginal (06/01/2023 [...] was last revised 2021. Testing performed by: [facility], [address] [place]., [address] Blood 05/27/2023 2:32 PM CDT 05/28/2023 9:37 PM CDT Mauricio Snell MD LAB BLOOD ORDERABLES Final Result Performing Organization Address [facility] de Phone Number [facility] [address] [place] [address] * (ABNORMAL) hCG, blood, quantitative [...] BLOOD ORDERABLES Final Result Performing Organization Address City/[facility] Co de Phone Number NOBLE HUBBARD [address] [place] [address] documented in this encounter Visit Diagnoses Diagnosis History of miscarriage, currently - Primary Threatened SAB (spontaneous ) Unspecified spontaneous without mention of complication Spontaneous miscarriage- Primary Threatened documented in this encounter Care Teams Speech Correction Assistant Relationship Specialty Start Date End Date Betsy Mendez NP PCP - General Family Medicine 05/19/23 documented as of this encounter
--- OUTSIDE RECORDS SUMMARY | 2024-02-01 00:18 | XMS_ITS | Referral Summary ---
Author Organization [address] Address [address] [place] [phone] Care Team Providers Care Social Media Project Manager Name Role Phone MendezBetsy moran MIGUEL Primary Care Provider [phone] Allergies No known active allergies Medications al & mag hydroxide with simethicone-dip henhydramine-li docaine (MAGIC MOUTHWASH) suspension 1-1-1 Swish and spit 10 mL every 4 (four) hours as needed (throat pain) 240 mL 05/19/2023 Active levothyroxine (SYNTHROID) 50 mcg tablet Take 1 tablet (50 mcg total) by mouth daily 90 tablet 1 05/20/2023 Active vit 50-xvhg-crgqs-d dupree 18-1-350 mg capsuleIndicati ons:Less than 8 [...] in the area including [facility] versus [facility] or [facility] Pharyngitis 05/19/2023 Assessment & Plan (05/19/2023 3:17 [...] on file Legal Sex Female 10:38 AM BUSINESS SYSTEMS CONSULTANT Gender Identity Female 01/23/2024 9:47 AM BUSINESS SYSTEMS CONSULTANT Sexual Orientation Straight 01/23/2024 9: 47 AM BUSINESS SYSTEMS CONSULTANT Last Filed Vital Signs Vital Sign Reading [...] Treatment Not on file Insurance [employer]TER [facility] [place] [employer]TER [facility] Care Teams Social Media Project Manager Relationship Specialty Start Date End Date Betsy Mendez NP PCP - General Family Medicine 05/19/23
--- OUTSIDE RECORDS SUMMARY | 2024-02-01 00:18 | XMS_ITS | Encounter Summary ---
Author Organization [facility] Healthcare Address [address] [place] [address] Care Team Providers Care Anesthetist Name Role Phone Betsy Mendez NP Primary Care Provider Encounter Details Date Type Department Care Team (Latest Contact Info) Description 06/06/2023 1:12 PM CDT - 06/06/2023 11:59 PM CDT Hospital Encounter [address] [id number] SAB (spontaneous ) Discharge Disposition: Discharge to [...] on file Legal Sex Female 10:38 AM OIL FIELD RIG BUILDER Gender Identity Female 01/23/2024 9:47 AM OIL FIELD RIG BUILDER Sexual Orientation Straight 01/23/2024 9: 47 AM OIL FIELD RIG BUILDER documented as of this encounter Medications at Time of Discharge al & mag hydroxide with simethicone-diphe nhydramine-lidoca ine (MAGIC MOUTHWASH) suspension 1-1-1 Swish and spit 10 mL every 4 (four) hours as needed (throat pain) 240 mL 05/19/2023 levothyroxine (SYNTHROID) 50 mcg tablet Take 1 tablet (50 mcg total) by mouth daily 90 tablet 1 05/20/2023 vit 37-sdsl-zzonl-dha 18-1-350 mg capsuleIndication s:Less than 8 weeks [...] MD LAB BLOOD ORDERABLES Final Result NOBLE [address] Department [place] [address] documented in this encounter Visit Diagnoses Diagnosis SAB (spontaneous ) Unspecified spontaneous without mention of complication documented in this encounter Care Teams Anesthetist Relationship Specialty Start Date End Date Betsy Mendez NP PCP - General Family Medicine 05/19/23 documented as of this encounter
--- OUTSIDE RECORDS SUMMARY | 2024-02-01 00:18 | XMS_ITS | Encounter Summary ---
Author Organization [facility] Healthcare Address [address] [place] [address] Care Team Providers Care Field Artillery Targeting Technician Name Role Phone Betsy Mendez NP Primary Care Provider [phone] Encounter Details Date Type Department Care Team (Latest Contact Info) Description 06/02/2023 2:08 PM CDT - 06/02/2023 11:59 PM CDT Hospital Encounter [address] [id number] Spontaneous miscarriage Discharge Disposition: Discharge to home [...] on file Legal Sex Female 10:38 AM SCIENCE TECHNICIANS Gender Identity Female 01/23/2024 9:47 AM SCIENCE TECHNICIANS Sexual Orientation Straight 01/23/2024 9: 47 AM SCIENCE TECHNICIANS documented as of this encounter Medications at Time of Discharge al & mag hydroxide with simethicone-diphe nhydramine-lidoca ine (MAGIC MOUTHWASH) suspension 1-1-1 Swish and spit 10 mL every 4 (four) hours as needed (throat pain) 240 mL 05/19/2023 levothyroxine (SYNTHROID) 50 mcg tablet Take 1 tablet (50 mcg total) by mouth daily 90 tablet 1 05/20/2023 vit 02-uzwh-yagpr-dha 18-1-350 mg capsuleIndication s:Less than 8 weeks [...] blood, quantitative (06/02/2023 2:08 PM CDT) Pathologist [facility] hCG, quant 1,848.0(H ) 0.0 - 5.0 [...] Snell MD LAB BLOOD ORDERABLES Final Result [facility] [address] [address] Department [place] [address] documented in this encounter Visit Diagnoses Diagnosis Spontaneous miscarriage documented in this encounter Care Teams Field Artillery Targeting Technician Relationship Specialty Start Date End Date Betsy Mendez NP PCP - General Family Medicine 05/19/23 documented as of this encounter
--- OUTSIDE RECORDS SUMMARY | 2024-02-01 00:18 | XMS_ITS | Encounter Summary ---
Author Organization [facility] Healthcare Address [address] [place] [address] Care Team Providers Care Crane Operator Cab Name Role Phone Betsy Mendez NP Primary Care Provider [phone] Reason for Visit * Reason Comments Establish Care Pt is here to est ca re Follow-up Pt was seen in [facility] ED yesterday for abscess in her throat. They prescribed ax. They did not want to do a CT scan due to patient being . The throat pain started 3 days ago under her jaw. The pain has gone down to her throat yesterday Encounter Details Date Type Department Care Team (Latest Contact Info) Description 05/19/2023 1:30 PM CDT Office Visit [facility] Medical Group Primary Care at [address] [phone] Betsy Mendez NP [address] [place] [address] [address] [place] [address] Acquired hypothyroidism (Primary Dx); Positive [...] on file Legal Sex Female 10:38 AM CORPORATE ASSOCIATE ATTORNEY Gender Identity Female 01/23/2024 9:47 AM CORPORATE ASSOCIATE ATTORNEY Sexual Orientation Straight 01/23/2024 9: 47 AM CORPORATE ASSOCIATE ATTORNEY documented as of this encounter Last Filed [...] NP - 05/19/2023 1:30 PM CDT My director medical science and I are thankful you have trusted us with your care, and hope that you received EXCELLENT care ! Please do not hesitate to call if you have any questions or concerns at [facility] [employer] - * Attachments The following attachments cannot be sent through Care Everywhere. * Pharyngitis (AfterCare(R) Instructions(ER/ED)) (Sri Lankan) documented in this encounter Ordered Prescriptions Prescription [...] est care Follow-up Pt was seen in [facility] ED yesterday for abscess in her throat. [...] See CC above. Pt was seen in [facility] yesterday. Symptoms started 3 days ago with [...] on levothyroxine. Pt states she is from [place] - moved here to be with her fiance and his family. Past Medical History: Diagnosis Date H/O one miscarriage <6 weeks SVT (supraventricular tachycardia) ([facility]) Social History Tobacco Use Smoking status: [...] , Rfl: al & mag hydroxide with jvjrakwvtmq-qgijcdykpklxjyb-eeroejiel (MAGIC MOUTHWASH) suspension 1-1-1, Swish and spit [...] TSH level today Orders: - Thyroid Function [facility]; Future Positive test Assessment & Plan: Will check a quantitative HCG. Once is confirmed we can send a referral. I did give patient a couple different options in the area including [facility] versus [facility] or [facility] Orders: - hCG, blood, quantitative; Future [...] orders - al & mag hydroxide with uerwwmapfrf-ulchrlxzxglvopa-zkpheiwyx (MAGIC MOUTHWASH) suspension 1-1-1; Swish and spit [...] couple different options in the area including [facility] versus [facility] or [facility] documented in this encounter Plan of Treatment Not on file documented as of this encounter Procedures Procedure Name Priority Date/Time Associated Diagnosis Comments POCT MONONUCLEOSIS SCREEN Routine 05/19/2023 2:24 PM CDT Pharyngitis, unspecified etiology documented in this encounter Results * (ABNORMAL) CBC with auto differential (05/19/2023 2:32 PM CDT) WBC 13.3(H) 3.8 - 9.9 K/cumm Hgb 13.6 11.9 - 15.5 g/dL [facility] Hct 41.9 35.6 - 45.5 % [facility] Plt 256 150 - 400 K/cumm [facility] MPV 12.3 9.1 - 12.3 fL [facility] RBC 4.62 3.90 - 5.20 M/cumm [facility] MCV 90.7 81.3 - 96.4 fL [facility] MCH 29.4 27.1 - 33.3 pg [facility] MCHC 32.5 32.3 - 35.7 g/dL [facility] RDW CV 13.4 11.1 - 14.9 % [facility] RDW SD 44.7 35.7 - 48.1 fL [facility] NRBC abs 0.00 0.00 - 0.01 K/cumm [facility] Blood 05/19/2023 2:32 PM CDT 05/19/2023 7:34 PM CDT Betsy Mendez NP LAB BLOOD ORDERABLES Final Resul t [facility] [address] [address] Department [place] [address] * (ABNORMAL) Comprehensive metabolic panel (05/19/2023 2:32 PM CDT) Sodium 135 135 - 145 mmol/L Potassium, pl 3.7 3.3 - 4.9 mmol/L [facility] Chloride 101 97 - 110 mmol/L [facility] CO2 18(L) 22 - 32 mmol/L [facility] Anion gap 16(H) 2 - 15 mmol/L [facility] BUN 6 6 - 25 mg/dL [facility] Creatinine 0.52(L) 0.60 - 1.10 mg/dL [facility] Glucose 82 70 - 199 mg/dL [facility] Comment: Interpretive Data Fasting glucose >/= [...] NP LAB BLOOD ORDERABLES Final Resul t [facility] [address] [address] [place] [address] * (ABNORMAL) Lipid panel (05/19/2023 2:32 PM [...] LAB BLOOD ORDERABLES Final Resul t NOBLE [address] [address] [place] [address] * (ABNORMAL) Thyroid Function [facility] (05/19/2023 2:32 PM CDT) TSH 5.38(H) 0.30 - 4.20 mcIUnit/mL Blood 05/19/2023 2:32 PM CDT 05/19/2023 7:34 PM CDT us Betsy Mendez NP LAB BLOOD ORDERABLES Final Resul t Performing Organization Address [facility] de Phone Number NOBLE HUBBARD [address] [employer] [place], [place] [id number] * (ABNORMAL) Sadaf-Mcgregor virus (EBV) antibody panel Blood (05/19/2023 2:32 PM CDT) Pathologist [facility] EBV nuclear Ab Positive(A) Negative Comment: Indicates the presence of detectable IgG antibody to EBV Nuclear Antigen. Testing performed by: [facility], [address] [place]., [address] EBV VCA IgG Positive(A) Negative [facility] Comment: Indicates the presence of antibody; 90% of the adult population will have been infected with EBV sometime in the past. Testing performed by: [facility], [address] [place] [address] EBV VCA IgM Negative Negative [facility] Comment:Testing performed by : [facility], [address] [place] [address] EBV interp Past Infection [facility] Comment:Testing performed by : [facility], [address] [place]., [address] Blood 05/19/2023 2:32 PM CDT 05/20/2023 9:47 AM CDT us Betsy Mendez NP LAB MICROBIOLOGY - GENERAL ORDER CYN Final Result Performing Organization Address [facility] Co de Phone Number MILLYBRYAN HUBBARD [address] [place] [address] * (ABNORMAL) Hemoglobin A1c (05/19/2023 2:32 PM CDT) Pathologist [facility] Hgb A1C 5.8(H) 4.0 - 5.6 % Estimated Average Glucose 120 mg/dL NOBLE Comment: The ADA recommends reporting an estimated Average Glucose (eAG) with all Hemoglobin A1c results using the equation derived from a study of 507 normal and diabetic adults. ??Minority populations were underrepresented and children were not included. ?? (Diabetes Care 31:5713-3137, 2008). ??The eAG is not equivalent to a fasting glucose. Blood 05/19/2023 2:32 PM CDT 05/19/2023 7:34 PM CDT Result [facility] Betsy Mendez NP LAB BLOOD ORDERABLES Final Resul t Performing Organization Address [facility] de Phone Number NOBLE HUBBARD [address] Department Laboratories [place], [place] [phone] * (ABNORMAL) hCG, blood, quantitative (05/19/2023 2:32 PM CDT) Pathologist [facility] hCG, quant 9,744.0(H ) 0.0 - 5.0 [...] PM CDT 05/19/2023 7:34 PM CDT Result [facility] us Betsy Mendez NP LAB BLOOD ORDERABLES Final Resul t Performing Organization Address [facility] Co de Phone Number NOBLE HUBBARD [address] [employer] [place], [place] [id number] * POCT mononucleosis screen (05/19/2023 2:24 PM CDT) Pathologist [facility] Heterophile, POC negative Blood spot 05/19/2023 2:24 PM CDT Result [facility] us Betsy Mendez NP POINT OF CARE [...] 4 added in this encounter Care Teams Crane Operator Cab Relationship Specialty Start Date End Date Betsy Mendez NP PCP - General Family Medicine 05/19/23 documented as of this encounter
--- OUTSIDE RECORDS SUMMARY | 2024-02-01 00:18 | XMS_ITS | Encounter Summary ---
Author Organization [facility] Healthcare Address [address] [place] [address] Care Team Providers Care Cotton Weigher Operator Name Role Phone Betsy Mendez NP Primary Care Provider [phone] Encounter Details Date Type Department Care Team (Late st Contact Info) Description 05/19/2023 2:30 PM CDT Lab [facility] Medical Group Outpatient Lab at [address] [phone] Positive test (Primary Dx) Social [...] on file Legal Sex Female 10:38 AM MANAGER DISTRIBUTION CENTER Gender Identity Female 01/23/2024 9:47 AM MANAGER DISTRIBUTION CENTER Sexual Orientation Straight 01/23/2024 9: 47 AM MANAGER DISTRIBUTION CENTER documented as of this encounter Plan of Treatment Not on file documented as of this encounter Visit Diagnoses Diagnosis Positive test- Primary examination or test, positive result documented in this encounter Care Teams Cotton Weigher Operator Relationship Specialty Start Date End Date Betsy Mendez NP PCP - General Family Medicine 05/19/23 documented as of this encounter
--- OUTSIDE RECORDS SUMMARY | 2024-02-01 00:18 | XMS_ITS | Encounter Summary ---
Author Organization [facility] Healthcare Address [address] [place] [address] Care Team Providers Care Mobile Application Tester Name Role Phone Betsy Mendez NP Primary Care Provider [phone] Reason for Referral * Consultation (Routine) - Closed Specialty Diagnoses / Procedures Referred By Contkeke t Referred To Contact Gynecology Diagnoses Less than 8 weeks gestation of Acquired hypothyroidism Betsy Mendez NP Phone: tel: fax: Oh Conrad MD [address] [place] [address] Phone: tel: Referral ID Status Reason Start Date Expiration Date V isits Requested Visits Authorized [id number] Closed Specialty Services Required 05/20/2023 06/18/2024 1 1 Question Answer Please select the performing region: [facility] [[id number]] Please select the performing department: [facility] [place]TE ISAAC [[id number]] To provider: OH CONRAD [[id number]] # of visits: 1 Encounter Details Date Type Department Care Team (Late st Contact Info) Description 05/20/2023 Orders Only [facility] Primary Care at [address] [address] Betsy Mendez NP [address] [place] [address] Less than 8 weeks gestation of [...] on file Legal Sex Female 10:38 AM CEMENTER OIL WELL Gender Identity Female 01/23/2024 9:47 AM CEMENTER OIL WELL Sexual Orientation Straight 01/23/2024 9: 47 AM CEMENTER OIL WELL documented as of this encounter Ordered Prescriptions Prescription Sig Dispense Quantity Refills Last Filled Start Date End Date vit 55-sity-aedwk-dha 18-1-350 mg capsuleIndications :Less than 8 weeks [...] documented as of this encounter Care Teams Mobile Application Tester Relationship Specialty Start Date End Date Betsy Mendez NP PCP - General Family Medicine 05/19/23 documented as of this encounter
--- OUTSIDE RECORDS SUMMARY | 2024-02-01 00:18 | XMS_ITS | Encounter Summary ---
Author Organization [facility] Healthcare Address [address] [place] [address] Care Team Providers Care Business Controller Name Role Phone Betsy Mendez NP Primary Care Provider [phone] Encounter Details Date Type Department Care Team (Latest Contact Info) Description 05/27/2023 2:32 PM CDT - 05/27/2023 11:59 PM CDT Hospital Encounter [address] [id number] History of miscarriage, currently Discharge Disposition: Discharge [...] file Legal Sex Female 10:38 AM RESEARCH SCHOLAR Gender Identity Female 01/23/2024 9:47 AM RESEARCH SCHOLAR Sexual Orientation Straight 01/23/2024 9: 47 AM RESEARCH SCHOLAR documented as of this encounter Medications at Time of Discharge al & mag hydroxide with simethicone-diph enhydramine-lido linda (MAGIC MOUTHWASH) suspension 1-1-1 Swish and spit 10 mL every 4 (four) hours as needed (throat pain) 240 mL 05/19/2023 levothyroxine (SYNTHROID) 50 mcg tablet Take 1 tablet (50 mcg total) by mouth daily 90 tablet 1 05/20/2023 vit 83-ljeq-wejat-dh a 18-1-350 mg capsuleIndicatio ns:Less than 8 [...] BLOOD ORDERABLES Final Result Performing Organization Address [facility] Co de Phone Number [place] [address] [address] [place] [address] * Progesterone (05/27/2023 2:32 PM [...] was last revised 2021. Testing performed by: [facility], [address] [place]., [address] Blood 05/27/2023 2:32 PM CDT 05/28/2023 9:37 PM CDT Mauricio Snell MD LAB BLOOD ORDERABLES Final Result Performing Organization Address [facility] de Phone Number [place] [address] [address] [place] [address] documented in this encounter Visit Diagnoses Diagnosis History of miscarriage, currently documented in this encounter Care Teams Business Controller Relationship Specialty Start Date End Date Betsy Mendez NP PCP - General Family Medicine 05/19/23 documented as of this encounter
--- OUTSIDE RECORDS SUMMARY | 2024-02-01 00:18 | XMS_ITS | Encounter Summary ---
Author Organization [facility] Healthcare Address [address] [place] [address] Care Team Providers Care Exercise Equipment Specialist Name Role Phone eBtsy Mendez MIGUEL Primary Care Provider [phone] Encounter Details Date Type Department Care Team (Late st Contact Info) Description 06/01/2023 Telephone [facility] [address] [place] [address] [address] [place] [address] Mauricio Snell MD [address] [place] [address] [address] [place] [address] Social History Tobacco Use Types [...] on file Legal Sex Female 10:38 AM SUNDAY SCHOOL MISSIONARY Gender Identity Female 01/23/2024 9:47 AM [employer] Sexual Orientation Straight 01/23/2024 9: 47 AM [employer] documented as of this encounter Miscellaneous Notes [...] on filedocumented in this encounter Care Teams Exercise Equipment Specialist Relationship Specialty Start Date End Date Betsy Mendez NP PCP - General Family Medicine 05/19/23 documented as of this encounter
--- OUTSIDE RECORDS SUMMARY | 2024-02-01 00:18 | XMS_ITS | Encounter Summary ---
Author Organization [facility] Healthcare Address [address] [place] [address] Care Team Providers Care Aerospace Stress Engineer Name Role Phone Betsy Mendez NP Primary Care Provider [phone] Encounter Details Date Type Department Care Team (Late st Contact Info) Description 05/25/2023 Telephone [facility] Medical Group Primary Care at [address] [address] Betsy Mendez NP [address] [place] [address] [address] [place] [address] Social History Tobacco Use Types [...] on file Legal Sex Female 10:[address] PATROL COMMANDER Gender Identity Female 01/23/2024 9:[address] PATROL COMMANDER Sexual Orientation Straight 01/23/2024 9: [address] PATROL COMMANDER documented as of this encounter Miscellaneous Notes * Telephone Encounter - Donita Lyles MA - 05/26/2023 11:14 AM CDT Office note faxed which talks about pt's positive test. * Telephone Encounter - Gonsalo Cordova CNA - 05/25/2023 9:02 AM CDT Haley from [facility] [phone] is calling to get paperwork faxed to them showing the patient is . documented in this encounter Plan of Treatment Not on file documented as of this encounter Visit Diagnoses Not on filedocumented in this encounter Care Teams Aerospace Stress Engineer Relationship Specialty Start Date End Date Betsy Mendez NP PCP - General Family Medicine 05/19/23 documented as of this encounter
--- OUTSIDE RECORDS SUMMARY | 2024-02-01 00:18 | XMS_ITS | Encounter Summary ---
Author Organization [facility] Healthcare Address [address] [place] [address] Care Team Providers Care Fire Sprinkler Apparatus Inspector Name Role Phone Betsy Mendez NP Primary Care Provider [phone] Encounter Details Date Type Department Care Team (Late st Contact Info) Description 06/02/2023 2:00 PM CDT Lab [facility] Medical Group Outpatient Lab at [address] [address] Positive test (Primary Dx) Social [...] on file Legal Sex Female 10:38 AM COUNTY SUPERVISOR Gender Identity Female 01/23/2024 9:47 AM COUNTY SUPERVISOR Sexual Orientation Straight 01/23/2024 9: 47 AM COUNTY SUPERVISOR documented as of this encounter Plan of Treatment Not on file documented as of this encounter Visit Diagnoses Diagnosis Positive test- Primary examination or test, positive result documented in this encounter Care Teams Fire Sprinkler Apparatus Inspector Relationship Specialty Start Date End Date Betsy Mendez NP PCP - General Family Medicine 05/19/23 documented as of this encounter
--- OUTSIDE RECORDS SUMMARY | 2024-02-01 00:18 | XMS_ITS | Encounter Summary ---
Author Organization [facility] Healthcare Address [address] [place] [address] Care Team Providers Care Organ Tuner Electronic Name Role Phone Betsy Mendez NP Primary Care Provider [phone] Encounter Details Date Type Department Care Team (Late st Contact Info) Description 06/06/2023 1:00 PM CDT Lab [facility] Medical Group Outpatient Lab at [address] [address] Acquired hypothyroidism (Primary Dx); Positive [...] on file Legal Sex Female 10:38 AM ASSOCIATE PROFESSOR OF PHYSICS Gender Identity Female 01/23/2024 9:47 AM ASSOCIATE PROFESSOR OF PHYSICS Sexual Orientation Straight 01/23/2024 9: 47 AM ASSOCIATE PROFESSOR OF PHYSICS documented as of this encounter Plan of Treatment Not on file documented as of this encounter Visit Diagnoses Diagnosis Acquired hypothyroidism- Primary Unspecified hypothyroidism Positive test examination or test, positive result documented in this encounter Care Teams Organ Tuner Electronic Relationship Specialty Start Date End Date Betsy Mendez NP PCP - General Family Medicine 05/19/23 documented as of this encounter
--- OUTSIDE RECORDS SUMMARY | 2024-02-01 00:18 | XMS_ITS | Encounter Summary ---
Author Organization [facility] Healthcare Address [address] [place] [address] Care Team Providers Care Access Specialist Name Role Phone Betsy Mendez NP Primary Care Provider [phone] Reason for Visit * Reason Comments Ultrasound * Diagnostic Imaging (Routine) - Closed Specialty Diagnoses / Procedures Referred By Matt t Referred To Contact Diagnoses Threatened Procedures US OB Transvaginal Mauricio Snell MD [address] [place] [address] [address], [place] [address] Phone: tel: fax: Jimbo GRAY [address] [address] Phone: tel: fax: Referral ID Status Reason Start Date Expiration Date Visits Re quested Visits Authorized [id number] Closed 05/31/2023 06/29/2024 1 1 Encounter Details Date Type Department Care Team (Latest Contact Info) Description 06/01/2023 3:00 PM CDT Ancillary Procedure Jimbo GRAY [address] [address] Spontaneous miscarriage (Primary Dx); Threatened [...] on file Legal Sex Female 10:38 AM CLAY MILLER Gender Identity Female 01/23/2024 9:47 AM CLAY MILLER Sexual Orientation Straight 01/23/2024 9: 47 AM CLAY MILLER documented as of this encounter Miscellaneous Notes [...] Snell MD LAB BLOOD ORDERABLES Final Result [facility] [address] [address] Department [place] [address] * US OB Transvaginal (06/01/2023 [...] Threatened documented in this encounter Care Teams Access Specialist Relationship Specialty Start Date End Date Betsy Mendez NP PCP - General Family Medicine 05/19/23 documented as of this encounter
--- OUTSIDE RECORDS SUMMARY | 2024-02-01 00:18 | XMS_ITS | Encounter Summary ---
Author Organization [facility] Healthcare Address [address] [place] [address] Care Team Providers Care Ruby On Rails Engineer Name Role Phone Betsy Mendez NP Primary Care Provider [phone] Reason for Referral * Diagnostic Imaging (Routine) - Canceled Specialty Diagnoses / Procedures Referred By Matt t Referred To Contact Diagnoses Encounter to establish gestational age using ultrasound Procedures US Ob Under 14 Weeks Susie Barrios MD [address] [place] [address] Phone: tel: [facility] [address] [place] [address] [address], [place] [address] Phone: tel: fax: Referral ID Status Reason Start Date Expiration Date V isits Requested Visits Authorized [id number] Canceled 05/27/2023 06/25/2024 1 1 Encounter Details Date Type Department Care Team (Latest Contact Info) Description 05/27/2023 2:00 PM CDT Clinical Support [facility] Medical Group Women's Health Care at [address] [address] Missed period (Primary Dx); Encounter [...] on file Legal Sex Female 10:38 AM PET TRAINER Gender Identity Female 01/23/2024 9:47 AM PET TRAINER Sexual Orientation Straight 01/23/2024 9: 47 AM PET TRAINER documented as of this encounter Last Filed [...] ultrasonics documented in this encounter Care Teams Ruby On Rails Engineer Relationship Specialty Start Date End Date Betsy Mendez NP PCP - General Family Medicine 05/19/23 documented as of this encounter
--- OUTSIDE RECORDS SUMMARY | 2024-02-01 00:18 | XMS_ITS | Encounter Summary ---
Author Organization [facility] Healthcare Address [address] [place] [address] Care Team Providers Care Special Education Resource Room Teacher Name Role Phone Betsy Mendez NP Primary Care Provider [phone] Encounter Details Date Type Department Care Team (Late st Contact Info) Description 05/27/2023 2:30 PM CDT Lab [facility] Medical Group Outpatient Lab at [address] [address] Social History Tobacco Use Types [...] on file Legal Sex Female 10:38 AM CARBON ROD INSERTER Gender Identity Female 01/23/2024 9:47 AM CARBON ROD INSERTER Sexual Orientation Straight 01/23/2024 9: 47 AM CARBON ROD INSERTER documented as of this encounter Plan of Treatment Not on file documented as of this encounter Visit Diagnoses Not on filedocumented in this encounter Care Teams Special Education Resource Room Teacher Relationship Specialty Start Date End Date Betsy Mendez NP PCP - General Family Medicine 05/19/23 documented as of this encounter
== END 2024-01-28 10:17 | disposition home or self-care (01) ==
PROVIDERS: Emergency Provider Emergency Medicine; PCP Nurse Practitioner Family
DX: M79.662 Pain in left lower leg (principal)
CPT/HCPCS: 36415; 73562; 80053; 83735; 85025; 85610; 85730; 93971; 99284

== ENCOUNTER 2024-05-27 21:58 | Observation (INO) | payer BC, MEDICAID, SELFPAY ==
[2024-05-27] VITALS (15 sets, daily range): BP systolic 122–138; BP diastolic 66–92; PULSE 113–139; RESP 16–34; TEMP 36.6–37.3; O2SAT 96–100
--- NOTE | ~2024-05-27 | XR_ITS ---
Portable chest x-ray Comparison: None Clinical History: Palpitations Findings: Lungs are clear, without focal consolidation or pleural effusion. Cardiomediastinal silho uette is unremarkable. Bones and soft tissues are unremarkable. Impression: Normal chest. Reviewed, dictated and finalized at location . Impression: Normal chest.
--- NOTE | ~2024-05-27 | CT_ITS ---
Clinical Indication: Palpitations CT Scan of the Chest with Contrast: Technique: Contiguous sections were acquired throughout the chest after intravenous administration of 100 cc of Omnipaque 350. Dose reduction technique was used on this scan by utilizing automated expos ure control and iterative reconstruction technique. The dose-length product (DLP) was 972.40 mGy-cm. Findings: There is no evidence of any significant mediastinal, hilar or axillary lymphadenopathy. No central pu lmonary embolus seen. Suboptimal evaluation for small peripheral pulmonary emboli. There is no eviden ce of aortic dissection or aneurysm. There is no evidence of pleural or pericardial effusion. The lungs are clear. No pulmonary nodules or infiltrates are noted. Images through the upper abdomen reveal no abnormalities. Impression: No evidence of central pulmonary embolus, aortic dissection, or aortic aneurysm. Clear lungs. Reviewed, dictated and finalized at [facility]. Impression: No evidence of central pulmonary embolus, aortic dissection, or aortic aneurysm . Clear lungs.
--- NOTE | 2024-05-27 22:00 | ECG_ITS ---
Test Date: 2024-05-27 22:05:21 Measurements Intervals Marvin Rate: 232 P: 0 VA: 0 QRS: 5 QRSD: 88 T: 139 QT: 178 QTc: 350 Interpretive Statements SUPRAVENTRICULAR TACHYCARDIA POSSIBLE RIGHT VENTRICULAR CONDUCTION DELAY ST-T WAVE ABNORMALITY IN INF/LAT LEADS- CONSIDER ISCHEMIA OR RATE RELATED BASELINE WANDER- I, II, AVR, AVL, V1-V3 ABNORMAL ECG No previous ECG available for comparison Electronically Signed On 05-28-2024 06:23:19 CDT by Pepe Chapin D.O.
--- OUTSIDE RECORDS SUMMARY | 2024-05-27 22:00 | XMS_ITS | Clinical Summary ---
Author Organization [facility] [address] Address [facility] [place] [address] Care Team Providers Care Hospice Office Coordinator Name Role Phone No, Physician Primary Care Provider [phone] Allergies No known active allergies Medications al & mag hydroxide with simethicone-dip henhydramine-li docaine (MAGIC MOUTHWASH) suspension 1-1-1 Swish and spit 10 mL every 4 (four) hours as needed (throat pain) 240 mL 05/19/2023 Active vit 22-dioc-luwcv-d dupree 18-1-350 mg capsuleIndicati ons:Less than 8 weeks gestation of Take 1 capsule by mouth daily 100 capsule 3 05/20/2023 Active benzonatate (TESSALON) 100 mg capsuleIndicati ons:Cough Take 1 capsule (100 mg total) by mouth 3 (three) times a day as needed for cough 42 capsule 02/13/2024 Active levothyroxine (SYNTHROID) 50 mcg tablet TAKE 1 TABLET BY MOUTH EVERY DAY 30 tablet 04/18/2024 Active Active Problems Problem Noted Date Diagnosed Date SVT (supraventricular tachycardia) 05/19/2023 Overview (05/19/2023): Has had no further episodes . Had two episodes last summer Positive test 05/19/2023 Assessment & Plan (05/19/2023 3:13 PM CDT): Will check a quantitative HCG. Once is confirmed we can send a referral. I did give patient a couple different options in the area including [facility] versus [facility] or [facility] Pharyngitis 05/19/2023 Assessment & Plan (05/19/2023 [...] Will check a TSH level today Immunizations Immunization Administration Dates Next Due Influenza, Unspecified 05/19/2023(Deferr ed: Patient Refused),02/14/2022(Deferred: Patient Refused) Surgical History Surgery Date Site/Laterality Comments OVARIAN CYST REMOVAL EYE SURGERY Medical History Medical History Date Comments SVT (supraventricular tachycardia) H/O one miscarriage <6 weeks Family History [...] staff should administer the PHQ-9) 0 05/19/2023 Comments Unknown Sex and Gender Information Value Date Recorded Sex Assigned at Not on file Legal Sex Female 10:38 AM BUSINESS PROJECT ANALYST Gender Identity Female 01/23/2024 9:47 AM BUSINESS PROJECT ANALYST Sexual Orientation Straight 01/23/2024 9: 47 AM BUSINESS PROJECT ANALYST Obstetrics History Para Term AB IAB SAB Ectopic Multiple Livin g Live Births 2 0 0 0 2 0 2 0 0 0 0 Date Outcome GA Total Labor Labor/2nd/3rd Weight Sex Type Anes PTL Mary A1 A5 Name Clin SAB 023 SAB 4w0d SAB Last Filed Vital Signs Vital Sign Reading Time Taken Comments Blood Pressure 124/70 02/13/2024 6:28 PM BUSINESS PROJECT ANALYST Pulse 95 02/13/2024 6:28 PM BUSINESS PROJECT ANALYST Temperature 37.2 C (98.9 F) 02/13/2024 6:28 PM BUSINESS PROJECT ANALYST Respiratory Rate 20 02/13/2024 6:28 PM BUSINESS PROJECT ANALYST Oxygen Saturation 100% 02/13/2024 6:28 PM BUSINESS PROJECT ANALYST Inhaled Oxygen Concentration - - Weight 123.8 kg (273 lb) 02/13/2024 6:28 PM BUSINESS PROJECT ANALYST Height 162.6 cm (5' 4 ) 05/27/2023 2:40 PM CDT Body Mass Index 46.86 05/27/2023 2:40 PM CDT Plan of Treatment Health Maintenance Due Date Last Done Comments Cervical Cancer Screening 2000 Hepatitis C Screening 2000 DTaP/Tdap/Td Vaccine (1 - Tdap) 12/11/2011 Varicella Vaccines (1 of 2 - 13+ 2-dose series) 2013 HPV Vaccines (1 - 3-dose series) 12/11/2015 Meningococcal B Vaccine (1 o f 2 - Standard) 2016 Hepatitis B Screening 2018 Regular Well Visit/Exam 18-64 2018 Influenza Vaccine (#1) 2023 Depression Screening 05/18/2024 05/19/2023 Pneumococcal vaccine <65 Aged Out No longer eligible based on patient's age to complete this topic Insurance [facility] Care Teams Hospice Office Coordinator Relationship Specialty Start Date End Date No, Physician PCP - General 05/02/24
--- OUTSIDE RECORDS SUMMARY | 2024-05-27 22:00 | XMS_ITS | CONTINUITY OF CARE DOCUMENT ---
Author Name lora paulino Address Unknown Organization [facility] Address [address] [place] [address] Phone [phone] Care Team Providers Care General Farmer Name Role Phone Jacob Juarez MD Unavailable TANNA CARDENAS MD Unavailable [phone] INSURANCE PROVIDERS Payer name Policy type / Coverage type [place] red [employer] party ID [employer] [facility] Medicaid [id number]
--- OUTSIDE RECORDS SUMMARY | 2024-05-27 22:00 | XMS_ITS | Patient Health Record ---
Author Organization [facility] [place] Address [address] [address] [place] [address] Care Team Providers Care Electro Mechanical Technician Name Role Phone [employer] INACTIVE, [email or web address] INACTIVE Unavail able Unavailable Allergies No Known [...] Status W/U Status Risk Notes Problem care ([id number]) Supervision of other normal (Z34.80) Active confirm Plan Of Treatment No Information Insurance Providers Payer Name Payer Address Payer Phone Subscriber Number Group Number Insured Name Patient Relationship to Insured Coverage Start Date Coverage End Date DO NOT USE INVALID BC/BS, [employer] [address] [place] [address] [phone] [id number] JANETH KAY 18 SELF / SAME PATIENT
--- OUTSIDE RECORDS SUMMARY | 2024-05-27 22:00 | XMS_ITS | Referral Summary ---
Author Organization [facility] [address] Address [facility] [place] [address] Care Team Providers Care Millinery Worker Name Role Phone No, Physician Primary Care Provider [phone] Allergies No known active allergies Medications al & mag hydroxide with simethicone-dip henhydramine-li docaine (MAGIC MOUTHWASH) suspension 1-1-1 Swish and spit 10 mL every 4 (four) hours as needed (throat pain) 240 mL 05/19/2023 Active vit 86-eufv-qeegw-d dupree 18-1-350 mg capsuleIndicati ons:Less than 8 [...] couple different options in the area including [facility] versus [facility] or [facility] Pharyngitis 05/19/2023 Assessment & Plan (05/19/2023 [...] on file Legal Sex Female 10:38 AM LONG LINE TEAMSTER Gender Identity Female 01/23/2024 9:47 AM LONG LINE TEAMSTER Sexual Orientation Straight 01/23/2024 9: 47 AM LONG LINE TEAMSTER Last Filed Vital Signs Vital Sign Reading Time Taken Comments Blood Pressure 124/70 02/13/2024 6:28 PM LONG LINE TEAMSTER Pulse 95 02/13/2024 6:28 PM LONG LINE TEAMSTER Temperature 37.2 C (98.9 F) 02/13/2024 6:28 PM LONG LINE TEAMSTER Respiratory Rate 20 02/13/2024 6:28 PM LONG LINE TEAMSTER Oxygen Saturation 100% 02/13/2024 6:28 PM LONG LINE TEAMSTER Inhaled Oxygen Concentration - - Weight 123.8 kg (273 lb) 02/13/2024 6:28 PM LONG LINE TEAMSTER Height 162.6 cm (5' 4 ) 05/27/2023 2:40 PM CDT Body Mass Index 46.86 05/27/2023 2:40 PM CDT Plan of Treatment Not on file Insurance [facility] [facility] Care Teams Millinery Worker Relationship Specialty Start Date End Date No, Physician PCP - General 05/02/24
--- OUTSIDE RECORDS SUMMARY | 2024-05-27 22:00 | XMS_ITS | Clinical Summary ---
Author Organization [facility] Address [facility] [place] [address] Care Team Providers Care Shoe Lacer Name Role Phone Betsy Mendez [facility] Primary Care Provider [phone] Allergies No known active allergies Medications No known medications Encounters Date Type Department Care Team Description 03/06/2024 5:37 PM BEHAVIORAL SERVICES TECH - 03/06/2024 8:21 PM BEHAVIORAL SERVICES TECH Emergency [facility] [place] [address] Faby Chao, MIGUEL Carbon Monoxide (Co) Exposure Discharge Disposition: Home or Self Care (Routine Discharge) 03/06/2024 Travel from Last 3 Months Social History Tobacco Use Types Packs/Day Years Used Date Smoking Tobacco: Never Smokeless Tobacco: Never Alcohol Use Standard Drinks/Week Comments Not Currently 0 (1 standard drink = 0.6 oz pur e alcohol) Comments No Sex and Gender Information Value Date Recorded Sex Assigned at Female 03/06/2024 5:06 PM BEHAVIORAL SERVICES TECH Legal Sex Female 11:15 AM CDT Gender Identity Not on file Sexual Orientation Not on file Last Filed Vital Signs Vital Sign Reading Time Taken Comments Blood Pressure 127/89 03/06/2024 8:20 PM BEHAVIORAL SERVICES TECH Pulse 90 03/06/2024 8:20 PM BEHAVIORAL SERVICES TECH Temperature 37 C (98.6 F) 03/06/2024 5:05 PM BEHAVIORAL SERVICES TECH Respiratory Rate 20 03/06/2024 8:20 PM BEHAVIORAL SERVICES TECH Oxygen Saturation 100% 03/06/2024 8:20 PM BEHAVIORAL SERVICES TECH Inhaled Oxygen Concentration - - Weight 124.7 kg (275 lb) 03/06/2024 5:05 PM BEHAVIORAL SERVICES TECH Height 162.6 cm (5' 4 ) 03/06/2024 5:05 PM BEHAVIORAL SERVICES TECH Body Mass Index 47.2 03/06/2024 5:05 PM BEHAVIORAL SERVICES TECH Plan of Treatment Health Maintenance Due Date Last Done Comments Cervical Cancer Screening Pa p Smear (Age 21 to 29) Every 3 Years 2000 Cervical Cancer Screening 2000 Annual Physical 12/11/2003 HPV Vaccines (1 - 3-dose series) 12/11/2015 Meningococcal B Vaccine (1 o f 2 - Standard) 2016 Hepatitis C 2018 DTaP, Tdap and Td Vaccines ( 1 - Tdap) 12/11/2019 Hepatitis B Vaccines (1 of 3 - 19+ 3-dose series) 12/11/2019 COVID-19 Vaccine (1 - 2023-2 5 season) 2023 Meningococcal Vaccine Aged Out No evert louis eligible based on patient's age to complete this topic Pneumococcal Vaccine: Pediat rics (0 to 5 Years) and At-Risk Patients (6 to 49 Years) Aged Out No longer eligible b ased on patient's age to complete this topic RSV Immunizations Under 20 Months Aged Out No longer eligible based on patient's age to complete this topic Procedures Procedure Name Priority Date/Time Associated Diagnosis Comments BLOOD GAS, ARTERIAL LAB STAT 03/06/2024 7:20 PM BEHAVIORAL SERVICES TECH CARBON MONOXIDE, QNT STAT 03/06/2024 7:20 PM BEHAVIORAL SERVICES TECH BLOOD GAS, VENOUS STAT 03/06/2024 5:4 0 PM BEHAVIORAL SERVICES TECH from Last 3 Months Results * (ABNORMAL) ARTERIAL BLOOD GAS (03/06/2024 7:20 PM BEHAVIORAL SERVICES TECH) PH ARTERIAL 7.48(H) 7.35 - 7.45 03/06/2024 7:31 PM BEHAVIORAL SERVICES TECH [facility] PCO2 34.0(L) 35.0 - 45.0 MMHG 03/06/2024 7:31 PM BEHAVIORAL SERVICES TECH [facility] PO2 106.0 83.0 - 108.0 MMHG 03/06/2024 7:31 PM BEHAVIORAL SERVICES TECH [facility] TOTAL CO2 ARTERIAL 26.3(H) 19.0 - 24.0 MMOL/L 03/06/2024 7:31 PM BEHAVIORAL SERVICES TECH [facility] BASE EXCESS 2.2 0.0 - 3.0 MMOL/L 03/06/2024 7:31 PM [facility] O2 SATURATION 99(H) 94.0 - 98.0 % 03/06/2024 7:31 PM [facility] BICARB ARTERIAL 25.3 21.0 - 28.0 MMOL/L 03/06/2024 7:31 PM BEHAVIORAL SERVICES TECH [facility] O2 ADMIN ARTERIAL 21 03/06/2024 7:26 PM BEHAVIORAL SERVICES TECH [facility] DRAW SITE ARTERIAL RT BRACH 03/06/2024 7:26 PM BEHAVIORAL SERVICES TECH [facility] 03/06/2024 7:20 PM BEHAVIORAL SERVICES TECH Faby Chao [facility] Final Result [facility] [address] [place] [address], [place] [phone] * CARBON MONOXIDE, QNT (03/06/2024 7:20 PM BEHAVIORAL SERVICES TECH) CARBON MONOXIDE 1.7 % 7:31 PM BEHAVIORAL SERVICES TECH [facility] Comment: Nonsmoker <3.0% Smoker <10.0% 03/06/2024 7:20 PM BEHAVIORAL SERVICES TECH Cuong Solares DO LABORATORY Final Result [facility] [address] [place] [address], [place] [phone] * (ABNORMAL) Blood gas, venous (03/06/2024 5:40 PM BEHAVIORAL SERVICES TECH) PH VENOUS 7.42 7.32 - 7.43 03/06/2024 5:49 PM BEHAVIORAL SERVICES TECH [facility] PCO2 VENOUS 47.0 MMHG 03/06/2024 5:49 PM BEHAVIORAL SERVICES TECH [facility] Comment:NO REFERENCE RANGE H BEEN ESTABLISHED PO2 VENOUS 26.0 MM HG 03/06/2024 5:49 PM BEHAVIORAL SERVICES TECH [facility] Comment:NO REFERENCE RANGE H BEEN ESTABLISHED TOTAL CO2 VENOUS 31.9(H) 22.0 - 26.0 MMOL/L 03/06/2024 5:49 PM BEHAVIORAL SERVICES TECH [facility] VENOUS BASE EXCESS 5.1 MMOL/L 03/06/2024 5:49 PM BEHAVIORAL SERVICES TECH [facility] Comment:NO REFERENCE RANGE H BEEN ESTABLISHED O2 SAT VENOUS 49 % 03/06/2024 5:49 PM BEHAVIORAL SERVICES TECH [facility] Comment:NO REFERENCE RANGE H BEEN ESTABLISHED BICARB VENOUS 30.5(H) 22.0 - 29.0 MMOL/L 03/06/2024 5:49 PM BEHAVIORAL SERVICES TECH [facility] O2 ADMIN VENOUS 21 5:47 PM [facility] 03/06/2024 5:40 PM BEHAVIORAL SERVICES TECH Faby Chao NP LABORATORY Final Result [facility] [address] [place] [address], [place] [phone] from Last [address] [place] [address] [place] [address] Care Teams Shoe Lacer Relationship Specialty Start Date End Date Betsy Mendez FNP-BC PCP - General NURSE PRACTITIONER 05/18/23
[2024-05-27] MEDS: SODIUM CHLORIDE 0.9% IV 1,000 ML 999 ML (22:18)
[2024-05-27] MEDS: LORazepam INJ (*CRX) 2 MG/ML VIAL (22:19)
--- OUTSIDE RECORDS SUMMARY | 2024-05-27 22:30 | XMS_ITS | CONTINUITY OF CARE DOCUMENT ---
Author Name lora paulino Address Unknown Organization [facility] Address [address] [place] [address] Phone [phone] Care Team Providers Care Statistical Geneticist Name Role Phone Jacob Juarez MD Unavailable [phone] TANNA CARDENAS MD Unavailable [phone] INSURANCE PROVIDERS Payer name Policy type / Coverage type Louise red libertarian [place] AETNA [facility] Medicaid [id number]
--- OUTSIDE RECORDS SUMMARY | 2024-05-27 22:30 | XMS_ITS | Clinical Summary ---
Author Organization [facility] [address] Address [facility] [place] [address] Care Team Providers Care Wheat Washer Name Role Phone No, Physician Primary Care Provider [phone] Allergies No known active allergies Medications al & mag hydroxide with simethicone-dip henhydramine-li docaine (MAGIC MOUTHWASH) suspension 1-1-1 Swish and spit 10 mL every 4 (four) hours as needed (throat pain) 240 mL 05/19/2023 Active vit 31-bsfa-eninp-d dupree 18-1-350 mg capsuleIndicati ons:Less than 8 [...] couple different options in the area including [facility] versus [facility] or [facility] Pharyngitis 05/19/2023 Assessment & Plan (05/19/2023 3:17 [...] on file Legal Sex Female 10:38 AM SOLUTIONS ARCHITECT CONSULTANT Gender Identity Female 01/23/2024 9:47 AM SOLUTIONS ARCHITECT CONSULTANT Sexual Orientation Straight 01/23/2024 9: 47 AM SOLUTIONS ARCHITECT CONSULTANT Obstetrics History Para Term AB IAB SAB Ectopic Multiple Livin g Live Births 2 0 0 0 2 0 2 0 0 0 0 Date Outcome GA Total Labor Labor/2nd/3rd Weight Sex Type Anes PTL Mary A1 A5 Name Clin SAB 023 SAB 4w0d SAB Last Filed Vital Signs Vital Sign Reading Time Taken Comments Blood Pressure 124/70 02/13/2024 6:28 PM SOLUTIONS ARCHITECT CONSULTANT Pulse 95 02/13/2024 6:28 PM SOLUTIONS ARCHITECT CONSULTANT Temperature 37.2 C (98.9 F) 02/13/2024 6:28 PM SOLUTIONS ARCHITECT CONSULTANT Respiratory Rate 20 02/13/2024 6:28 PM SOLUTIONS ARCHITECT CONSULTANT Oxygen Saturation 100% 02/13/2024 6:28 PM SOLUTIONS ARCHITECT CONSULTANT Inhaled Oxygen Concentration - - Weight 123.8 kg (273 lb) 02/13/2024 6:28 PM SOLUTIONS ARCHITECT CONSULTANT Height 162.6 cm (5' 4 ) 05/27/2023 [...] patient's age to complete this topic Insurance [facility] Care Teams Wheat Washer Relationship Specialty Start Date End Date No, Physician PCP - General 05/02/24
--- OUTSIDE RECORDS SUMMARY | 2024-05-27 22:30 | XMS_ITS | Clinical Summary ---
Author Organization [facility] Address [facility] access hospital[address] [place] [address] Care Team Providers Care Test Engine Evaluator Name Role Phone Betsy Mendez [facility] Primary Care Provider [phone] Allergies No known active allergies Medications No known medications Encounters Date Type Department Care Team Description 03/06/2024 5:37 PM BRIM BUSTER - 03/06/2024 8:21 PM BRIM BUSTER Emergency [facility] [place] [address] Faby Chao, MIGUEL Carbon Monoxide (Co) Exposure [...] Sex Assigned at Female 03/06/2024 5:06 PM BRIM BUSTER Legal Sex Female 11:15 AM CDT Gender Identity Not on file Sexual Orientation Not on file Last Filed Vital Signs Vital Sign Reading Time Taken Comments Blood Pressure 127/89 03/06/2024 8:20 PM BRIM BUSTER Pulse 90 03/06/2024 8:20 PM BRIM BUSTER Temperature 37 C (98.6 F) 03/06/2024 5:05 PM BRIM BUSTER Respiratory Rate 20 03/06/2024 8:20 PM BRIM BUSTER Oxygen Saturation 100% 03/06/2024 8:20 PM BRIM BUSTER Inhaled Oxygen Concentration - - Weight 124.7 kg (275 lb) 03/06/2024 5:05 PM BRIM BUSTER Height 162.6 cm (5' 4 ) 03/06/2024 5:05 PM BRIM BUSTER Body Mass Index 47.2 03/06/2024 5:05 PM BRIM BUSTER Plan of Treatment Health Maintenance Due Date [...] season) 2023 Meningococcal Vaccine Aged Out No eevrt louis eligible based on patient's age to [...] GAS, ARTERIAL LAB STAT 03/06/2024 7:20 PM BRIM BUSTER CARBON MONOXIDE, QNT STAT 03/06/2024 7:20 PM BRIM BUSTER BLOOD GAS, VENOUS STAT 03/06/2024 5:4 0 PM BRIM BUSTER from Last 3 Months Results * (ABNORMAL) ARTERIAL BLOOD GAS (03/06/2024 7:20 PM BRIM BUSTER) PH ARTERIAL 7.48(H) 7.35 - 7.45 03/06/2024 7:31 PM BRIM BUSTER [facility] PCO2 34.0(L) 35.0 - 45.0 MMHG 03/06/2024 7:31 PM BRIM BUSTER [facility] PO2 106.0 83.0 - 108.0 MMHG 03/06/2024 7:31 PM BRIM BUSTER [facility] TOTAL CO2 ARTERIAL 26.3(H) 19.0 - 24.0 MMOL/L 03/06/2024 7:31 PM BRIM BUSTER [facility] BASE EXCESS 2.2 0.0 - 3.0 MMOL/L 03/06/2024 7:[address] [facility] O2 SATURATION 99(H) 94.0 - 98.0 % 03/06/2024 7:[address] [facility] BICARB ARTERIAL 25.3 21.0 - 28.0 MMOL/L 03/06/2024 7:31 PM BRIM BUSTER [facility] O2 ADMIN ARTERIAL 21 03/06/2024 7:26 PM BRIM BUSTER [facility] DRAW SITE ARTERIAL RT BRACH 03/06/2024 7:26 PM BRIM BUSTER [facility] 03/06/2024 7:20 PM BRIM BUSTER Faby Chao [facility] Final Result [facility] [address] [place] [address], [place] [phone] * CARBON MONOXIDE, QNT (03/06/2024 7:20 PM BRIM BUSTER) CARBON MONOXIDE 1.7 % 7:31 PM BRIM BUSTER [facility] Comment: Nonsmoker <3.0% Smoker <10.0% 03/06/2024 7:20 PM BRIM BUSTER Cuong Solares DO LABORATORY Final Result [facility] [address] [place] [address], [place] [phone] * (ABNORMAL) Blood gas, venous (03/06/2024 5:40 PM BRIM BUSTER) PH VENOUS 7.42 7.32 - 7.43 03/06/2024 5:49 PM BRIM BUSTER [facility] PCO2 VENOUS 47.0 MMHG 03/06/2024 5:49 PM BRIM BUSTER [facility] Comment:NO REFERENCE RANGE H BEEN ESTABLISHED PO2 VENOUS 26.0 MM HG 03/06/2024 5:49 PM BRIM BUSTER [facility] Comment:NO REFERENCE RANGE H BEEN ESTABLISHED TOTAL CO2 VENOUS 31.9(H) 22.0 - 26.0 MMOL/L 03/06/2024 5:49 PM BRIM BUSTER [facility] VENOUS BASE EXCESS 5.1 MMOL/L 03/06/2024 5:49 PM BRIM BUSTER [facility] Comment:NO REFERENCE RANGE H BEEN ESTABLISHED O2 SAT VENOUS 49 % 03/06/2024 5:49 PM BRIM BUSTER [facility] Comment:NO REFERENCE RANGE H BEEN ESTABLISHED BICARB VENOUS 30.5(H) 22.0 - 29.0 MMOL/L 03/06/2024 5:49 PM BRIM BUSTER [facility] O2 ADMIN VENOUS 21 5:[address] [facility] 03/06/2024 5:40 PM BRIM BUSTER Faby Chao NP LABORATORY Final Result [facility] [address] [place] [address], [place] [phone] from Last [address] [place] [place] [address] Care Teams Test Engine Evaluator Relationship Specialty Start Date End Date Betsy Mendez FNP-BC PCP - General NURSE PRACTITIONER 05/18/23
--- OUTSIDE RECORDS SUMMARY | 2024-05-27 22:30 | XMS_ITS | Referral Summary ---
Author Organization [facility] [address] Address [facility] [place] [address] Care Team Providers Care Apparatus Engineering Technologist Name Role Phone No, Physician Primary Care Provider [phone] Allergies No known active allergies Medications al & mag hydroxide with simethicone-dip henhydramine-li docaine (MAGIC MOUTHWASH) suspension 1-1-1 Swish and spit 10 mL every 4 (four) hours as needed (throat pain) 240 mL 05/19/2023 Active vit 91-yzlz-yvfbg-d dupree 18-1-350 mg capsuleIndicati ons:Less than 8 [...] couple different options in the area including [facility] versus [facility] or [facility] Pharyngitis 05/19/2023 Assessment & Plan (05/19/2023 3:17 [...] on file Legal Sex Female 10:38 AM WELFARE AIDE Gender Identity Female 01/23/2024 9:47 AM WELFARE AIDE Sexual Orientation Straight 01/23/2024 9: 47 AM WELFARE AIDE Last Filed Vital Signs Vital Sign Reading Time Taken Comments Blood Pressure 124/70 02/13/2024 6:28 PM WELFARE AIDE Pulse 95 02/13/2024 6:28 PM WELFARE AIDE Temperature 37.2 C (98.9 F) 02/13/2024 6:28 PM WELFARE AIDE Respiratory Rate 20 02/13/2024 6:28 PM WELFARE AIDE Oxygen Saturation 100% 02/13/2024 6:28 PM WELFARE AIDE Inhaled Oxygen Concentration - - Weight 123.8 kg (273 lb) 02/13/2024 6:28 PM WELFARE AIDE Height 162.6 cm (5' 4 ) 05/27/2023 2:40 PM CDT Body Mass Index 46.86 05/27/2023 2:40 PM CDT Plan of Treatment Not on file Insurance A[employer]NA [facility] [employer] [facility] Care Teams Apparatus Engineering Technologist Relationship Specialty Start Date End Date No, Physician PCP - General 05/02/24
[2024-05-27 22:57] LABS: Hemoglobin 14.5 g/dL (12.0-15.0); Mean Corpuscular Hemoglobin 29.5 pg (26-34); Mean Corpuscular Volume 89.6 fl (80-100); Mean Platelet Volume 12.4 fl (7.4-10.4); Platelet Count Result 375 k/mm3 (150-375); Red Blood Count 4.91 M/mm3 (4.2-5.4); Red Cell Distribution Width 12.9 % (11.5-14.5); White Blood Count 20.4 K/mm3 (4.5-10.0)
[2024-05-27 23:12] LABS: INR 0.9; Partial Thromboplastin Time 26.6 Seconds (22.3-36.8); Prothrombin Time 12.8 Seconds (11.1-14.7)
[2024-05-27 23:23] LABS: Troponin I < 0.012 ng/mL (0.000-0.034)
[2024-05-27 23:37] LABS: Band Neutrophils Percent 2 % (0-6); Basophils Percent Manual 2 % (0-1); Eosinophils Percent Manual 2 % (0-4); Lymphocytes Absolute Manual 9.79 K/mm3 (1.1-4.5); Metamyelocytes Percent 1 %; Monocytes Absolute Manual 1.42 K/mm3 (0.1-0.90); Monocytes Percent Manual 7 % (3-9); Neutrophils Absolute Manual 7.75 K/mm3 (1.7-7.2); Neutrophils Percent Manual 36 % (46-73); Total Cells Counted 100
[2024-05-27 23:39] LABS: Giant Platelets Present; Platelet Estimate Slightly Increased (Adequate); Promyelocytes Percent 2 %
[2024-05-27 23:40] LABS: Schistocytes None Seen
[2024-05-27 23:41] LABS: Smudge Cells PRESENT
[2024-05-27] MEDS: SODIUM CHLORIDE 0.9% IV 1,000 ML 999 ML IV CONT (23:41)
[2024-05-27] MEDS: ACETAMINOPHEN 500 MG TABLET 1000 MG PO (23:45)
[2024-05-27 23:49] LABS: BEDSIDEPREGUCG Negative (Negative)
[2024-05-27 23:51] LABS: Alanine Aminotransferase 36 U/L (6-35); Albumin Level 5.1 g/dL (3.5-5.1); Alkaline Phosphatase 73 U/L (38-126); Anion Gap 16 mmol/L (4-12); Aspartate Amino Transferase 35 U/L (14-36); Bilirubin,Total 0.5 mg/dL (0.2-1.3); Blood Urea Nitrogen 15 mg/dL (7-17); Calcium 10.3 mg/dL (8.4-10.2); Carbon Dioxide 19 mmol/L (22-30); Chloride 106 mmol/L (98-107); Estimated CRCL calculation 110 ml/min; Estimated Glomerular Filt Rate > 60; Glucose 130 mg/dL (65-110); Lipase 123 U/L (23-300); Magnesium 1.7 mg/dL (1.6-2.3); Potassium 4.4 mmol/L (3.4-5.0); Sodium 141 mmol/L (137-145)
[2024-05-27 23:51] LABS: Add Urine Microscopic? NO; Appearance Urine Clear (Clear); Bilirubin Urine Negative (Negative); Blood Urine Negative (Negative); Color Urine Yellow (Yellow); Glucose Urine UA Negative (Negative); Ketones Urine Negative (Negative); Leukocyte Esterase Ur Negative LEU/UL (Negative); Nitrate Urine Negative (Negative); Protein Urine Negative (Negative); Specific Grav Ur 1.013 (1.001-1.035); Urobilinogen Urine 0.2 mg/dL (<2.0); pH Urine 5.5 (5.0-9.0)
[2024-05-28] VITALS (25 sets, daily range): BP systolic 115–156; BP diastolic 64–103; PULSE 74–127; RESP 14–26; TEMP 36.6–37; O2SAT 96–100; BMI 54.1
[2024-05-28 00:54] LABS: Free T4 Free Thyroxine Reflex 0.96 ng/dL (0.78-2.19)
[2024-05-28] MEDS: MAGNESIUM SULF 2 GM/WATER 50ML 2 GM/50 ML BAG IVPB (01:09)
[2024-05-28 01:57] LABS: Troponin I 0.202 ng/mL (0.000-0.034)
--- NOTE | 2024-05-28 01:58 | ECG_ITS ---
Test Date: 2024-05-28 02:05:25 Measurements Intervals [place] Rate: 107 P: 56 CA: 152 QRS: 0 QRSD: 100 T: 29 QT: 324 QTc: 434 Interpretive Statements SINUS TACHYCARDIA POSSIBLE ANTERIOR MYOCARDIAL INFARCTION , OF INDETERMINATE AGE ABNORMAL ECG Compared to ECG 05/27/2024 22:05:21 SUPRAVENTRICULAR TACHYCARDIA NO LONGER PRESENT Electronically Signed On 05-28-2024 06:28:01 CDT by Pepe Chapin D.O.
[2024-05-28 02:07] LABS: Total Triiodothyronine (T3) 1.64 NG/ML (0.97-1.69)
[2024-05-28] MEDS: ASPIRIN 81 MG CHEWABLE TABLET 324 MG PO (02:11)
--- NOTE | 2024-05-28 03:24 | ED.GENADULT ---
HPI - General Adult General Chief complaint: Chest Pain Stated complaint: Chest pain-Hx of SVT Time Seen by Provider: 05/27/24 22:06 History of Present Illness HPI narrative: Patient is a 23-year-old female who presents emergency department with chief complaint of SVT. Patient states she was in the shower and started having a racing heart rate. The patient states she has a history of SVT reports that she normally is able to convert herself at home and decided to come into the emergency department. Related Data Allergies Allergy/AdvReac Type Severity Reaction Status Date / Time No Known Allergies Allergy Verified 05/27/24 22:16 Review of Systems Review of Systems: A 10 system review of systems was completed on the patient and is negative except for what is stated in the HPI. Nursing and ancillary documentation was reviewed. [facility] Past Medical History Medical History Healthy female adult Exam Narrative: GENERAL: Well-appearing, well-nourished, and in no acute distress. HEAD: Normocephalic, atraumatic. EYES: PERRLA and EOMI. ENT: Nares clear, no rhinorrhea or epistaxis. Mucous membranes moist. NECK: Supple. CHEST: Clear to auscultation. No respiratory distress. HEART: Regular rate and rhythm. No murmur heard. Normal peripheral pulses. ABDOMEN: Soft, nontender, nondistended, normal active bowel sounds. EXTREMITIES: Normal range of motion. No edema. SKIN: Warm, dry, no rash. NEURO: No focal deficits. Alert and oriented x3. PSYCH: Normal mood and affect. Course Vital Signs Vital signs: Vital Signs Temperature 36.6 C 05/27/24 22:07 Pulse Rate 125 H 05/27/24 22:07 Respiratory Rate 22 H 05/27/24 22:07 Blood Pressure 138/81 05/27/24 22:07 Pulse Oximetry 98 05/27/24 22:07 Oxygen Delivery Room Air 05/27/24 22:07 Temperature 37.0 C 05/28/24 00:15 Pulse Rate 99 05/28/24 03:19 Respiratory Rate 22 H 05/28/24 03:19 Blood Pressure 156/103 H 05/28/24 03:19 Pulse Oximetry 97 05/28/24 03:19 Oxygen Delivery Room Air 05/27/24 22:23 Medical Decision Making MDM Narrative Medical decision making narrative: Initial EKG showed SVT with a rate of 232 Patient was given vagal maneuvers and was able to convert herself back in the sinus rhythm repeat EKG showed sinus tachycardia with rate of 107 Initial troponin was negative patient was found have white blood cell count of 20.4 chest x-ray showed no focal infiltrate urinalysis showed no evidence UTI TSH was 18.6 the patient does have prior history of hypothyroidism and is on thyroid replacement therapy Repeat troponin came back significantly elevated at 0.202 patient is not having active chest pain at this time and actually feels much better A CTA of the chest was obtained to evaluate for pulmonary embolism Vital Signs Vital Signs: Vital Signs Temperature 36.6 C 05/27/24 22:07 Pulse Rate 125 H 05/27/24 22:07 Respiratory Rate 22 H 05/27/24 22:07 Blood Pressure 138/81 05/27/24 22:07 Pulse Oximetry 98 05/27/24 22:07 Oxygen Delivery Room Air 05/27/24 22:07 Temperature 37.0 C 05/28/24 00:15 Pulse Rate 99 05/28/24 03:19 Respiratory Rate 22 H 05/28/24 03:19 Blood Pressure 156/103 H 05/28/24 03:19 Pulse Oximetry 97 05/28/24 03:19 Oxygen Delivery Room Air 05/27/24 22:23 Lab Data 05/27/24 22:52 05/27/24 22:52 Labs: Lab Results 05/27/24 05/27/24 05/27/24 Range/Units 22:52 23:40 23:47 WBC 20.4 H (4.5-10.0) K/mm3 RBC 4.91 (4.2-5.4) M/mm3 Hgb 14.5 (12.0-15.0) g/dL Hct 44.0 (37.0-47.0) % MCV 89.6 (80-100) fl MCH 29.5 (26-34) pg MCHC 33.0 (32-36) g/dl RDW 12.9 (11.5-14.5) % Plt Count 375 (150-375) k/mm3 MPV 12.4 H (7.4-10.4) fl Immature Gran % (Auto) Not Reportable Neut % (Auto) Not Reportable Lymph % (Auto) Not Reportable [place] % (Auto) Not Reportable Eos % (Auto) Not Reportable Baso % (Auto) Not Reportable Lymph # (Auto) Not Reportable [place] # (Auto) Not Reportable Eos # (Auto) Not Reportable Baso # (Auto) Not Reportable Abs Immat Gran (auto) Not Reportable Absolute Neuts (auto) Not Reportable Absolute Nucleated RBC Not Reportable Total Counted 100 Neutrophils % (Manual) 36 L (46-73) % Band Neutrophils % 2 (0-6) % Lymphocytes % (Manual) 48.0 H (18-44) % Monocytes % (Manual) 7 (3-9) % Eosinophils % (Manual) 2 (0-4) % Basophils % (Manual) 2 H (0-1) % Metamyelocytes % 1 % Promyelocytes % (Man) 2 % Nucleated RBC % Not Reportable Abs Neuts (Manual) 7.75 H (1.7-7.2) K/mm3 Abs Lymphs (Manual) 9.79 H (1.1-4.5) K/mm3 Abs Monocytes (Manual) 1.42 H (0.1-0.90) K/mm3 Absolute Eos (Manual) 0.40 (0.02-0.50) K/mm3 Abs Basophils (Manual) 0.40 H (0.0-0.1) K/mm3 Smudge Cells Present Platelet Estimate Slightly increased (Adequate) Giant Platelets Present Schistocytes None seen PT 12.8 (11.1-14.7) Seconds INR 0.9 APTT 26.6 (22.3-36.8) Seconds Sodium 141 (137-145) mmol/L Potassium 4.4 (3.4-5.0) mmol/L Chloride 106 (98-107) mmol/L Carbon Dioxide 19 L (22-30) mmol/L Anion Gap 16 H (4-12) mmol/L BUN 15 (7-17) mg/dL Creatinine 0.95 (0.7-1.0) mg/dL Estim Creat Clear Calc 110 ml/min Estimated GFR > 60 (59 - ) Glucose 130 H (65-110) mg/dL Calcium 10.3 H (8.4-10.2) mg/dL Magnesium 1.7 (1.6-2.3) mg/dL Total Bilirubin 0.5 (0.2-1.3) mg/dL AST 35 (14-36) U/L ALT 36 H (6-35) U/L Alkaline Phosphatase 73 (38-126) U/L Troponin I < 0.012 (0.000-0.034) ng/mL Total Protein 9.0 H (6.3-8.2) g/dL Albumin 5.1 (3.5-5.1) g/dL Lipase 123 (23-300) U/L TSH (Reflex) 18.600 H (0.465-4.68) uIU/mL Free T4 0.96 (0.78-2.19) ng/dL Total T3 1.64 (0.97-1.69) NG/ML Urine Color Yellow (Yellow) Urine Appearance Clear (Clear) Urine pH 5.5 (5.0-9.0) Ur Specific [place] 1.013 (1.001-1.035) Urine Protein Negative (Negative) mg/dL Urine Glucose (UA) Negative (Negative) mg/dL Urine Ketones Negative (Negative) mg/dL Ur Blood (Man) Negative (Negative) Urine Nitrate Negative (Negative) Urine Bilirubin Negative (Negative) Urine Urobilinogen 0.2 (<2.0) mg/dL Leukocyte Esterase Rfl Negative (Negative) HIMANSHU/UL POC Urine HCG, Qual Negative (Negative) 05/28/24 Range/Units 01:23 WBC (4.5-10.0) K/mm3 RBC (4.2-5.4) M/mm3 Hgb (12.0-15.0) g/dL Hct (37.0-47.0) % MCV (80-100) fl MCH (26-34) pg MCHC (32-36) g/dl RDW (11.5-14.5) % Plt Count (150-375) k/mm3 MPV (7.4-10.4) fl Immature Gran % (Auto) Neut % (Auto) Lymph % (Auto) [place] % (Auto) Eos % (Auto) Baso % (Auto) Lymph # (Auto) [place] # (Auto) Eos # (Auto) Baso # (Auto) Abs Immat Gran (auto) Absolute Neuts (auto) Absolute Nucleated RBC Total Counted Neutrophils % (Manual) (46-73) % Band Neutrophils % (0-6) % Lymphocytes % (Manual) (18-44) % Monocytes % (Manual) (3-9) % Eosinophils % (Manual) (0-4) % Basophils % (Manual) (0-1) % Metamyelocytes % % Promyelocytes % (Man) % Nucleated RBC % Abs Neuts (Manual) (1.7-7.2) K/mm3 Abs Lymphs (Manual) (1.1-4.5) K/mm3 Abs Monocytes (Manual) (0.1-0.90) K/mm3 Absolute Eos (Manual) (0.02-0.50) K/mm3 Abs Basophils (Manual) (0.0-0.1) K/mm3 Smudge Cells Platelet Estimate (Adequate) Giant Platelets Schistocytes PT (11.1-14.7) Seconds INR APTT (22.3-36.8) Seconds Sodium (137-145) mmol/L Potassium (3.4-5.0) mmol/L Chloride (98-107) mmol/L Carbon Dioxide (22-30) mmol/L Anion Gap (4-12) mmol/L BUN (7-17) mg/dL Creatinine (0.7-1.0) mg/dL Estim Creat Clear Calc ml/min Estimated GFR (59 - ) Glucose (65-110) mg/dL Calcium (8.4-10.2) mg/dL Magnesium (1.6-2.3) mg/dL Total Bilirubin (0.2-1.3) mg/dL AST (14-36) U/L ALT (6-35) U/L Alkaline Phosphatase (38-126) U/L Troponin I 0.202 H* D (0.000-0.034) ng/mL Total Protein (6.3-8.2) g/dL Albumin (3.5-5.1) g/dL Lipase (23-300) U/L TSH (Reflex) (0.465-4.68) uIU/mL Free T4 (0.78-2.19) ng/dL Total T3 (0.97-1.69) NG/ML Urine Color (Yellow) Urine Appearance (Clear) Urine pH (5.0-9.0) Ur Specific [place] (1.001-1.035) Urine Protein (Negative) mg/dL Urine Glucose (UA) (Negative) mg/dL Urine Ketones (Negative) mg/dL Ur Blood (Man) (Negative) Urine Nitrate (Negative) Urine Bilirubin (Negative) Urine Urobilinogen (<2.0) mg/dL Leukocyte Esterase Rfl (Negative) HIMANSHU/UL POC Urine HCG, Qual (Negative) Discharge Plan Discharge Clinical Impression: SVT (supraventricular tachycardia), Elevated troponin, Leukocytosis Patient Disposition: Still a Patient Condition: Stable Patient Language: Greek Prescriptions: No Action Metamucil 3.4 gram/5.4 gram powder 1 tbsp PO DAILY Qty: 660 0RF Rx Instructions: mix into at least 8 oz of water or juice before administering sennosides [senna] 8.6 mg tablet 8.6 mg PO DAILY PRN (Reason: constipation) Qty: 20 0RF ibuprofen 600 mg tablet 600 mg PO TID Qty: 14 0RF Follow-up/Referrals: Vanessa,DARRICK Polo [Primary Care Provider] - Time of Disposition: 03:27
[2024-05-28] MEDS: SODIUM CHLORIDE 0.9% IV 1,000 ML 125 ML IV CONT ×3 (04:57→20:59)
--- NOTE | 2024-05-28 06:34 | ADMGEN ---
This patient, Drew Reis, was admitted to IMU Room 214-01 at 0454. Patient/family oriented to hospital policies and general routines including ID bracelet, bed and alarms, visiting hours, pain management, procedures, bathroom and other care routines, personal items, smoking policy, room service/diet, and visiting hours. Information on how to activate the Rapid Response Team has been discussed. Patient/Family are encouraged to report perceived risks to care and to ask questions if they do not understand what they are told or what they should do.
[2024-05-28] MEDS: ASPIRIN 81 MG CHEWABLE TABLET PO (09:21)
[2024-05-28 10:56] LABS: Troponin I 0.056 ng/mL (0.000-0.034)
--- NOTE | 2024-05-28 13:01 | P.HP_ITS ---
H&P: HPI History of Present Illness Date/Time: 05/28/24 13:01 Chief Complaint: Palpitation Narrative: Patient is a 23-year-old female with a past medical history of Gita's thyroiditis presented to the ED due to palpitation. Patient is a freshman year. Previously patient was living in [place] and about 2 years ago had a 1st symptom of SVT. The maneuvers to control her SVT. Patient moved to [place] due to her boyfriend. Approximately 3 months ago she had episode of SVT and she was able to manage by herself. Today while she was in shower she experienced episode of palpitation but unable to manages symptoms by herself and visited emergency care. Patient denies any history of diabetes, adrenal gland disease or any other autoimmune disease. Patient never had a Pap smear. Lately her menstrual cycle been irregular. She visited her PCP 6 months ago and due to high TSH the increased dosage from 25 mcg to 50 mcg and recommended to follow-up in 6 weeks but unfortunately she did not follow-up with. We will see her thyroid from 50 mcg to 88 mcg and advised to follow-up with her primary care or general education instructor and repeat the TSH in 6 weeks Pertinent ED labs: WBC 11, hemoglobin 12.6, platelet 303, sodium 139, potassium 3.7, creatinine 0.65, TSH 8.080, free T4 0.87 Troponin 0.202-0.056 Patient is admitted in the setting of SVT. We will increase the thyroid dosage as mentioned above. Cardiology was consulted recommended event monitor for 30 days, recommend echocardiogram and outpatient stress test. Review of Systems Review of Systems: A complete review of systems was performed and negative other than those mentioned [facility]PI [facility] Past Medical History Medical History Healthy female adult Social History Social History Smoking status: Never smoker Alcohol intake: never Substance use: never Do You Feel Safe in your Home?: Yes Lack of Transportation: No Lack of Food: Never True Current Housing: I Have Housing Concerned About Future Housing: No Difficulty Paying Gas/Electric Bills: No Difficulty Paying for Meds: No Currently Unemployed: No Education: High School Diploma/GED Difficulty w/ Childcare or Family Care: No Spiritual care concerns: No Meds Home Medications and Allergies Home Medications ?Medication ?Instructions ?Recorded ?Confirmed ?Type levothyroxine 50 mcg tablet 50 mcg PO DAILY@0630 05/28/24 05/28/24 History Allergies Allergy/AdvReac Type Severity Reaction Status Date / Time No Known Allergies Allergy Verified 05/27/24 22:16 Vital Signs Vital Signs - 24 hr 05/27/24 22:07 05/27/24 22:16 05/27/24 22:17 Temperature 97.9 F Pulse Rate 125 H 121 H 124 H Respiratory Rate 22 H 18 16 Blood Pressure 138/81 138/81 Pulse Oximetry 98 98 98 Oxygen Delivery Room Air 05/27/24 22:23 05/27/24 22:30 05/27/24 22:37 Temperature Pulse Rate 113 H 127 H Respiratory Rate 20 23 H Blood Pressure 127/66 Pulse Oximetry 96 98 97 Oxygen Delivery Room Air 05/27/24 22:45 05/27/24 23:00 05/27/24 23:01 Temperature Pulse Rate 124 H 126 H 120 H Respiratory Rate 21 H 28 H 25 H Blood Pressure 122/79 Pulse Oximetry 97 96 98 Oxygen Delivery 05/27/24 23:15 05/27/24 23:30 05/27/24 23:31 Temperature 99.1 F Pulse Rate 135 H 131 H 127 H Respiratory Rate 28 H 16 21 H Blood Pressure 135/92 H Pulse Oximetry 100 99 Oxygen Delivery 05/27/24 23:32 05/27/24 23:40 05/27/24 23:41 Temperature Pulse Rate 131 H 139 H 138 H Respiratory Rate 24 H 24 H 34 H Blood Pressure 126/83 Pulse Oximetry 98 99 98 Oxygen Delivery 05/28/24 00:15 05/28/24 00:36 05/28/24 01:28 Temperature 98.6 F Pulse Rate 117 H 117 H Respiratory Rate 18 14 Blood Pressure 132/81 Pulse Oximetry 99 100 Oxygen Delivery 05/28/24 01:30 05/28/24 01:31 05/28/24 01:45 Temperature Pulse Rate 118 H 120 H 113 H Respiratory Rate 25 H 20 20 Blood Pressure 125/72 Pulse Oximetry 99 100 97 Oxygen Delivery 05/28/24 01:53 05/28/24 02:00 05/28/24 02:01 Temperature Pulse Rate 100 104 H 100 Respiratory Rate 20 21 H 21 H Blood Pressure 125/72 125/69 Pulse Oximetry 96 97 98 Oxygen Delivery 05/28/24 02:15 05/28/24 03:19 05/28/24 04:03 Temperature Pulse Rate 127 H 99 101 H Respiratory Rate 16 22 H 26 H Blood Pressure 156/103 H Pulse Oximetry 99 97 99 Oxygen Delivery 05/28/24 04:15 05/28/24 04:26 05/28/24 05:00 Temperature Pulse Rate 79 92 Respiratory Rate 26 H 20 Blood Pressure 125/64 Pulse Oximetry 96 100 Oxygen Delivery Room Air 05/28/24 05:08 05/28/24 06:00 05/28/24 08:00 Temperature 97.8 F Pulse Rate 96 89 77 Respiratory Rate 20 18 Blood Pressure 135/70 129/72 Pulse Oximetry 98 100 Oxygen Delivery 05/28/24 08:00 05/28/24 08:00 05/28/24 10:00 Temperature Pulse Rate 87 88 88 Respiratory Rate 18 Blood Pressure Pulse Oximetry 100 Oxygen Delivery Room Air 05/28/24 12:00 Temperature 98.3 F Pulse Rate 80 Respiratory Rate 16 Blood Pressure 115/74 Pulse Oximetry 99 Oxygen Delivery Exam Narrative: General: Alert oriented x3, no acute distress Neck: Supple, no JVD Chest: Bilaterally clear to auscultation, no rales or rhonchi Cardiac: S1, S2 +, regular rate, regular rhythm, no murmurs or rubs Extremities: No pedal edema, no skin rash Neurologic: Alert and oriented x3, no focal neurological deficits H&P: Results Labs Labs: Short CBC 05/27/24 Range/Units 22:52 WBC 20.4 H (4.5-10.0) K/mm3 Hgb 14.5 (12.0-15.0) g/dL Hct 44.0 (37.0-47.0) % Plt Count 375 (150-375) k/mm3 BMP 05/27/24 22:52 Sodium 141 Potassium 4.4 Chloride 106 Carbon Dioxide 19 L BUN 15 Creatinine 0.95 Glucose 130 H Calcium 10.3 H Cardiac Enzymes 05/27/24 05/28/24 05/28/24 Range/Units 22:52 01:23 10:12 Troponin I < 0.012 0.202 H* D 0.056 H* (0.000-0.034) ng/mL Liver Function 05/27/24 Range/Units 22:52 Total Bilirubin 0.5 (0.2-1.3) mg/dL AST 35 (14-36) U/L ALT 36 H (6-35) U/L Alkaline Phosphatase 73 (38-126) U/L Albumin 5.1 (3.5-5.1) g/dL Urine 05/27/24 Range/Units 23:40 Urine Color Yellow (Yellow) Urine Appearance Clear (Clear) Urine pH 5.5 (5.0-9.0) Ur Specific [place] 1.013 (1.001-1.035) Urine Protein Negative (Negative) mg/dL Urine Glucose (UA) Negative (Negative) mg/dL Assessment and Plan Assessment and plan (1) SVT (supraventricular tachycardia): Code(s): I47.10 - Supraventricular tachycardia, unspecified Status: Acute (2) Elevated troponin: Code(s): R79.89 - Other specified abnormal findings of blood chemistry Status: Acute Assessment and Plan: Possibly demand ischemia Currently denies any chest pain Plan SVT: -in sinus -Recommend event monitor for 30 days to monitor underlying rhythm and heart rates. -If heart rate >90, then recommend adding metoprolol p.o. 25 mg b.i.d. -echo pending -recommend outpatient stress test -continue telemetry monitoring -check and replace electrolytes to keep K greater than 4 and Mg greater than 2 -outpatient follow-up with cardiology in 4 weeks Hypothyroidism -Gita's thyroiditis -no evidence of other autoimmune disease -TSH 8, free T4 0.87 -increase levothyroxine from 50 mcg to 88 mcg -patient needs to follow-up with the PCP and repeat the TSH in 6 weeks Disposition: Pap smear as outpatient Quality VTE Prophylaxis VTE prophylaxis: pharmacologic ordered Hospitalist MIPS Advance Care Plan I have confirmed that the patient's Advanced Care Plan is present, code status is documented, or surrogate decision maker is listed in patient medical record.: Yes Medication Reconciliation I have utilized all available resources to obtain, update and review the patients current medications (includes all prescriptions, OTC, herbals, cannabis, and nutritional supplements).: Yes
--- NOTE | 2024-05-28 13:37 | PM.CNCAR ---
Assessment and Plan Assessment and plan (1) SVT (supraventricular tachycardia): Code(s): I47.10 - Supraventricular tachycardia, unspecified Status: Acute (2) Elevated troponin: Code(s): R79.89 - Other specified abnormal findings of blood chemistry Status: Acute Plan 23-year-old female patient with history of SVT not on any medications, hypothyroidism on levothyroxine presents with chief complaints of palpitations secondary to SVT. SVT: -she is currently in sinus rhythm with heart rate in the 70s to 80s range. Recommend event monitor for 30 days to monitor underlying rhythm and heart rates. If heart rate >90, then recommend adding metoprolol p.o. 25 mg b.i.d. -recommend TTE -recommend outpatient stress test -continue telemetry monitoring -check and replace electrolytes to keep K greater than 4 and Mg greater than 2 -treat thyroid appropriately -outpatient follow-up with cardiology in 4 weeks -okay to discharge from Cardiology standpoint if TTE is normal -cardiology will sign off. Please call us with any questions History of Present Illness History of Present Illness Consult date/time: 05/28/24 13:37 Reason For Visit: SVT, Leukocytosis, Elevated troponin Narrative: 23-year-old female with history of SVT diagnosed 3 years ago, hypothyroidism on levothyroxine presents with chief complaints of palpitations. Patient was diagnosed with SVT about 3 years ago. Since then she has episodes of SVT 2 to 3 times a year which, on without relation to any inciting factors. She states that these episodes are resolved with Valsalva. However prior to this admission she started having SVT while in the shower that did not resolve. So she presented to the ER. No associated shortness of breath, dizziness, lightheadedness, chest pain, presyncope, syncope. No orthopnea, PND, leg swelling, recent weight gain. She has not had any further cardiac workup for her diagnosis of SVT. She has a family history of high blood pressure. She states that she has been treated for thyroid disease and is currently taking levothyroxine. She has a leukocytosis, elevated TSH, elevated troponin. Cardiology is consulted for further recommendations. She is currently in sinus rhythm with heart rate in the 70s to 80s range. Workup: WBC: 62194 TSH: 18.6 Free T3 and free T4: Within normal limits Troponin: 0.012--0.202--0.056 EKG: SVT with rate of 232, diffuse ST depressions most likely related EKG: Sinus tachycardia, ST depressions resolved Chest x-ray: No acute cardiopulmonary pathology CT chest: No PE Review of Systems Review of Systems: A complete review of systems was performed and negative other than those mentioned HPI [facility] Past Medical History Medical History (Reviewed 05/28/24 @ 03: by Arthur Nolen MD) Healthy female adult Social History Social History Smoking status: Never smoker Alcohol intake: never Substance use: never Do You Feel Safe in your Home?: Yes Lack of Transportation: No Lack of Food: Never True Current Housing: I Have Housing Concerned About Future Housing: No Difficulty Paying Gas/Electric Bills: No Difficulty Paying for Meds: No Currently Unemployed: No Education: High School Diploma/GED Difficulty w/ Childcare or Family Care: No Spiritual care concerns: No Meds Home Medications and Allergies Home Medications ?Medication ?Instructions ?Recorded ?Confirmed ?Type levothyroxine 50 mcg tablet 50 mcg PO DAILY@0630 05/28/24 05/28/24 History Allergies Allergy/AdvReac Type Severity Reaction Status Date / Time No Known Allergies Allergy Verified 05/27/24 22:16 Vital Signs Vital Signs - 24 hr 05/27/24 22:07 05/27/24 22:16 05/27/24 22:17 Temperature 36.6 C Pulse Rate 125 H 121 H 124 H Respiratory Rate 22 H 18 16 Blood Pressure 138/81 138/81 Pulse Oximetry 98 98 98 Oxygen Delivery Room Air 05/27/24 22:23 05/27/24 22:30 05/27/24 22:37 Temperature Pulse Rate 113 H 127 H Respiratory Rate 20 23 H Blood Pressure 127/66 Pulse Oximetry 96 98 97 Oxygen Delivery Room Air 05/27/24 22:45 05/27/24 23:00 05/27/24 23:01 Temperature Pulse Rate 124 H 126 H 120 H Respiratory Rate 21 H 28 H 25 H Blood Pressure 122/79 Pulse Oximetry 97 96 98 Oxygen Delivery 05/27/24 23:15 05/27/24 23:30 05/27/24 23:31 Temperature 37.3 C Pulse Rate 135 H 131 H 127 H Respiratory Rate 28 H 16 21 H Blood Pressure 135/92 H Pulse Oximetry 100 99 Oxygen Delivery 05/27/24 23:32 05/27/24 23:40 05/27/24 23:41 Temperature Pulse Rate 131 H 139 H 138 H Respiratory Rate 24 H 24 H 34 H Blood Pressure 126/83 Pulse Oximetry 98 99 98 Oxygen Delivery 05/28/24 00:15 05/28/24 00:36 05/28/24 01:28 Temperature 37.0 C Pulse Rate 117 H 117 H Respiratory Rate 18 14 Blood Pressure 132/81 Pulse Oximetry 99 100 Oxygen Delivery 05/28/24 01:30 05/28/24 01:31 05/28/24 01:45 Temperature Pulse Rate 118 H 120 H 113 H Respiratory Rate 25 H 20 20 Blood Pressure 125/72 Pulse Oximetry 99 100 97 Oxygen Delivery 05/28/24 01:53 05/28/24 02:00 05/28/24 02:01 Temperature Pulse Rate 100 104 H 100 Respiratory Rate 20 21 H 21 H Blood Pressure 125/72 125/69 Pulse Oximetry 96 97 98 Oxygen Delivery 05/28/24 02:15 05/28/24 03:19 05/28/24 04:03 Temperature Pulse Rate 127 H 99 101 H Respiratory Rate 16 22 H 26 H Blood Pressure 156/103 H Pulse Oximetry 99 97 99 Oxygen Delivery 05/28/24 04:15 05/28/24 04:26 05/28/24 05:00 Temperature Pulse Rate 79 92 Respiratory Rate 26 H 20 Blood Pressure 125/64 Pulse Oximetry 96 100 Oxygen Delivery Room Air 05/28/24 05:08 05/28/24 06:00 05/28/24 08:00 Temperature 36.6 C Pulse Rate 96 89 77 Respiratory Rate 20 18 Blood Pressure 135/70 129/72 Pulse Oximetry 98 100 Oxygen Delivery 05/28/24 08:00 05/28/24 08:00 05/28/24 10:00 Temperature Pulse Rate 87 88 88 Respiratory Rate 18 Blood Pressure Pulse Oximetry 100 Oxygen Delivery Room Air 05/28/24 12:00 Temperature 36.8 C Pulse Rate 80 Respiratory Rate 16 Blood Pressure 115/74 Pulse Oximetry 99 Oxygen Delivery Exam Narrative: General: Alert oriented x3, no acute distress Neck: Supple, no JVD Chest: Bilaterally clear to auscultation, no rales or rhonchi Cardiac: S1, S2 +, regular rate, regular rhythm, no murmurs or rubs Extremities: No pedal edema, no skin rash Neurologic: Alert and oriented x3, no focal neurological deficits Results Labs and Meds 05/28/24 13:33 05/28/24 13:33 Lab results: Cardiac Enzymes 05/27/24 05/28/24 05/28/24 Range/Units 22:52 01:23 10:12 AST 35 (14-36) U/L Troponin I < 0.012 0.202 H* D 0.056 H* (0.000-0.034) ng/mL Coagulation 05/27/24 Range/Units 22:52 PT 12.8 (11.1-14.7) Seconds APTT 26.6 (22.3-36.8) Seconds CBC 05/27/24 Range/Units 22:52 WBC 20.4 H (4.5-10.0) K/mm3 RBC 4.91 (4.2-5.4) M/mm3 Hgb 14.5 (12.0-15.0) g/dL Hct 44.0 (37.0-47.0) % Plt Count 375 (150-375) k/mm3 Lymph # (Auto) Not Reportable Gilliam # (Auto) Not Reportable Eos # (Auto) Not Reportable Baso # (Auto) Not Reportable Comprehensive Metabolic Panel 05/27/24 Range/Units 22:52 Sodium 141 (137-145) mmol/L Potassium 4.4 (3.4-5.0) mmol/L Chloride 106 (98-107) mmol/L Carbon Dioxide 19 L (22-30) mmol/L BUN 15 (7-17) mg/dL Creatinine 0.95 (0.7-1.0) mg/dL Glucose 130 H (65-110) mg/dL Calcium 10.3 H (8.4-10.2) mg/dL AST 35 (14-36) U/L ALT 36 H (6-35) U/L Alkaline Phosphatase 73 (38-126) U/L Total Protein 9.0 H (6.3-8.2) g/dL Albumin 5.1 (3.5-5.1) g/dL Intake and Output 05/27/24 05/28/24 05/28/24 23:59 07:59 15:59 Intake Total 1000 1200 1191.7 Balance 1000 1200 1191.7 Intake: IV 1000 1050 991.7 Sodium Chloride 0.9% IV 1,000 1000 ml @ 0 mls/hr .ROUTE .STK-MED ONE Rx#:[id number] Sodium Chloride 0.9% IV 1,000 1000 991.7 ml @ 125 mls/hr IV CONT .Q8H RADHA Rx#:[id number] Magnesium Sulf 2 gm/Water 50Ml 50 2 gm In 50 ml @ 25 mls/hr IVPB ONCE ONE Rx#:[id number] Oral 150 200 Other: # Unmeasured Voids 1 Patient Weight 05/28/24 23:59 Weight 142.9 kg
[2024-05-28 13:48] LABS: Hemoglobin 12.6 g/dL (12.0-15.0); Mean Corpuscular HGB Conc 32.3 g/dl (32-36); Mean Corpuscular Hemoglobin 29.2 pg (26-34); Mean Corpuscular Volume 90.3 fl (80-100); Mean Platelet Volume 11.4 fl (7.4-10.4); Platelet Count Result 303 k/mm3 (150-375); Red Blood Count 4.32 M/mm3 (4.2-5.4)
[2024-05-28 14:31] LABS: Alanine Aminotransferase 31 U/L (6-35); Albumin Level 4.3 g/dL (3.5-5.1); Alkaline Phosphatase 51 U/L (38-126); Anion Gap 9 mmol/L (4-12); Aspartate Amino Transferase 30 U/L (14-36); Bilirubin,Total 0.3 mg/dL (0.2-1.3); Blood Urea Nitrogen 12 mg/dL (7-17); Calcium 9.1 mg/dL (8.4-10.2); Carbon Dioxide 25 mmol/L (22-30); Chloride 105 mmol/L (98-107); Estimated CRCL calculation 164 ml/min; Estimated Glomerular Filt Rate > 60; Glucose 91 mg/dL (65-110); Potassium 3.7 mmol/L (3.4-5.0); Sodium 139 mmol/L (137-145)
[2024-05-28 15:38] LABS: Free T4 Free Thyroxine Reflex 0.87 ng/dL (0.78-2.19)
[2024-05-29] VITALS (11 sets, daily range): BP systolic 111–129; BP diastolic 64–76; PULSE 58–88; RESP 18–22; TEMP 36.4–36.8; O2SAT 100
--- NOTE | 2024-05-29 | ECHO_ITS ---
Patient Info Name: Drew Reis Age: 23 years : 2000 Gender: Female Ht: 64 in Wt: 315 lbs BSA: 2.63 m2 HR: 83 bpm BP: 119 / 75 mmHg Technical Quality: Fair Exam Date: 05/29/2024 10:28 AM Exam Location: Echo Lab Patient Status: Inpatient Admit Date: 05/28/2024 Staff Ordering Physician: Mandeep Charles MD Solar Design Engineer: Lauren Allan RDCS Attending Provider: Lawrence Argueta MD Exam Type: CA echo doppler color flow Study Info Indications - SVT Complete two-dimensional, color flow and Doppler transthoracic echocardiogram is performed with contrast to opacify the left ventricle and to improve the deliniation of the left ventricle endocardial borders. Contrast/Agitated Saline Contrast/Ag. Saline: Definity Amount: 3.00 ml Existing IV Access: Yes IV Access Condition: patent with no signs of infiltration Summary 1. The left ventricle is normal in size and systolic function. There is concentric left ventricular remodeling. The left ventricular ejection fraction is visually estimated to be 65-70%. There is normal diastolic function. There are no regional wall motion abnormalities. 2. The right ventricle is normal in size and systolic function. 3. There are no significant valvular abnormalities. Left Ventricle The left ventricle is normal in size and systolic function. There is concentric left ventricular remodeling. The left ventricular ejection fraction is visually estimated to be 65-70%. There is normal diastolic function. There are no regional wall motion abnormalities. Right Ventricle The right ventricle is normal in size and systolic function. Left Atria Left atrium is normal size. Right Atria Right atrium is size. Aortic Valve The aortic valve is not well visualized but appears to be opening well. Pulmonic Valve The pulmonic valve is not well visualized. There is no pulmonic valve regurgitation by color Doppler. Mitral Valve The mitral valve is normal. There is no mitral regurgitation. Tricuspid Valve The tricuspid valve is grossly normal. There is trace tricuspid regurgitation. Inferior Vena Cava Normal inferior vena cava with >50% collapse upon inspiration consistent with normal right atrial pressure, 3 mmHg. Aorta The aortic root at the level of the sinus of Valsalva measures 2.9 cm in diameter. Left Ventricular Outflow Tract Name Value Normal LVOT 2D LVOT Diameter 2.2 cm LVOT Doppler LVOT Peak Gradient 6 mmHg LVOT Mean Gradient 4 mmHg LVOT VTI 26 cm LVOT VTI/AV VTI Ratio 0.8 LVOT Stroke Volume 102 ml LVOT CO 22.5 l/min LVOT CI 8.5 l/min/m2 Pulmonic Valve Name Value Normal PV Doppler PV Peak Gradient 3 mmHg Mitral Valve Name Value Normal MV Doppler MV Decel [place] 490 cm/s2 MV PHT 68 ms MV Area (PHT) 3.2 cm2 4.0-5.0 MV Diastolic Function MV E Peak Velocity 115 cm/s MV A Peak Velocity 89 cm/s MV E/A 1.3 MV Decel Time 234 ms MV Annular TDI MV E/e' (Septal) 10.8 <=8.0 MV E/e' (Lateral) 7.9 <=8.0 MV E/e' (Average) 9.3 Tricuspid Valve Name Value Normal Estimated PAP/RSVP RA Pressure 3 mmHg <=5 Aorta Name Value Normal Ascending Aorta Ao Root Diameter (MM) 3.0 cm Ao Root Diam Index (MM) 1.1 cm/m2 Aortic Valve Name Value Normal AV Doppler AV Peak Velocity 152 cm/s AV Peak Gradient 9 mmHg AV Mean Gradient 6 mmHg AV VTI 33 cm AV Area (Cont Eq VTI) 3.1 cm2 >=3.0 AV Area (Cont Eq Raimundo) 3.2 cm2 AV Regurgitation 2D LVOT Area 3.9 cm2 Ventricles Name Value Normal LV Dimensions 2D/MM IVS Diastolic Thickness (2D) 1.3 cm 0.6-1.0 LVID Diastole (2D) 4.1 cm 3.8-5.2 LVIW Diastolic Thickness (2D) 1.2 cm 0.6-0.9 LVOT Diameter 2.2 cm LV Mass (2D Cubed) 179.41 g 67.00-162.00 LV Mass Index (2D Cubed) 68 g/m2 43-95 Relative Wall Thickness (2D) 0.56 LV Fractional Shortening/Ejection Fraction 2D/MM LV Diastolic Volume (4C MOD) 121 ml LV EF (4C MOD) 71 % LV Diastolic Volume (2C MOD) 132 ml LV EF (2C MOD) 74 % LV Diastolic Volume (BP MOD) 130 ml 46-106 LV Diastolic Volume Index (BP MOD) 49 ml/m2 29-61 LV Systolic Volume (BP MOD) 36 ml 14-42 LV Systolic Volume Index (BP MOD) 14 ml/m2 8-24 LV EF (BP MOD) 73 % 54-74 LV Diastolic Length (4C) 9.0 cm LV Systolic Length (4C) 7.0 cm LV Stroke Volume (4C MOD) 86 ml RV Dimensions 2D/MM RVID Diastole (2D) 4.3 cm 2.5-3.5 Atria Name Value Normal LA Dimensions LA Dimension (MM) 4.1 cm 2.7-3.8 LA Volume (4C A-L) 46 ml LA Volume (BP A-L) 61 ml RA Dimensions RA Area (4C) 13.5 cm2 <=18.0 Report Signatures
[2024-05-29] MEDS: SODIUM CHLORIDE 0.9% IV 1,000 ML 125 ML IV CONT (05:00)
[2024-05-29] MEDS: LEVOTHYROXINE SODIUM 75 MCG TABLET PO (05:32)
[2024-05-29] MEDS: ASPIRIN 81 MG CHEWABLE TABLET PO (08:29)
[2024-05-29] MEDS: ENOXAPARIN 40 MG/0.4 ML SYRINGE SUB-Q (08:30)
[2024-05-29 10:27] LABS: Amphetamine Screen Urine Negative (Negative); Barbiturate Screen Urine Negative (Negative); Benzodiazepines Screen Urine Negative (Negative); Cannabinoid Screen Urine Negative (Negative); Cocaine Screen Urine Negative (Negative); Methadone Screen Urine Negative (Negative); Opiate Screen Urine Negative (Negative); Phencyclidine Screen Urine Negative (Negative)
[2024-05-29] MEDS: PERFLUTREN LIPID MICROSPHERES 1.5 ML VIAL DILUTED TO 10 ML TOTAL VOLUME IV PUSH (10:50)
--- NOTE | 2024-05-29 11:18 | IVDEFINITY ---
Prior to administration of IV Definity the patient was educated on the risks and benefits of the imaging enhancing agent including potential adverse side effects. The patient verbalized understanding. Allergies were verified. No exclusion criteria were identified and at least one of the following inclusion criteria were met: 1) physician request, 2) patient technically difficult to image (per the [place] [employer] Echocardi[employer] guidelines of two or more segments not discernable within the apical view), or 3) questionable left ventricular function. ?
--- NOTE | 2024-05-29 16:03 | PM.DS ---
DS: Admitting Diagnosis Discharge Date 05/29/24 Admitting Diagnosis Palpitation DS: Discharge Diagnosis Discharge Diagnosis (1) SVT (supraventricular tachycardia): Code(s): I47.10 - Supraventricular tachycardia, unspecified Status: Acute (2) Elevated troponin: Code(s): R79.89 - Other specified abnormal findings of blood chemistry Status: Acute DS: Summary Hospital Course Hospital Course: patient presented with palpitation and was found to have SVT, seen by cardiology her HR was in 70s and 80s, patient clinically stable and symptoms, the patient observation assistant recommended event monitor for 30 days started patient on metoprolol 25mg BID and follow up in the clinic in 30 days, patient is clinically stable will discharge patient today. Time Spent with Patient Time attestation: Total time spent providing and/or coordinating discharge services: Exam Narrative: Patient is comfortable, NAD HEENT: eyes are clear and none icteric LUNGS:CTA HEART: RR S1S2 ABD: BS+, Soft and nontender Lower extremities: no edema SKIN: nonjaundiced Neuro: grossly intact. DS: Data Data Completed and Pending Labs on day of discharge: Labs from last 24 hours 05/29/24 09:58 Urine Opiates Screen Negative Urine Methadone Screen Negative Ur Barbiturates Screen Negative Ur Phencyclidine Scrn Negative Ur Amphetamine Screen Negative U Benzodiazepines Scrn Negative Urine Cocaine Screen Negative U Cannabinoids Screen Negative Discharge Plan Discharge Attending physician on discharge: Lawrence Argueta Consulting providers: Asya Espinosa; Mandeep Charles; Pepe Chapin; Clayton Cabrera Discharging Clinician: Reyna Kolb Patient Disposition: Home Activity: as tolerated Diet: heart healthy Discharge Instructions: patient to follow discharge care instruction from her patient observation assistant and follow up as scheduled, patient to follow up with her primary care provider as soon as possible. patient is instructed if any symptoms worsen to go to nearest ER. Patient Instructions: Antibiotic Form Patient Language: Frisian Stand Alone Forms: General Discharge Information Follow-up/Referrals: Asya Espinosa MD [Physician] - Vanessa,DARRICK Polo [Primary Care Provider] - Discharge Medications: New levothyroxine [Synthroid] 75 mcg Tablet 75 mcg PO DAILY@0630 Qty: 30 0RF aspirin [Children's Aspirin] 81 mg Tablet,Chewable 81 mg PO DAILY@0800 Qty: 30 0RF Discontinued levothyroxine 50 mcg tablet 50 mcg PO DAILY@0630 Date of admission: 05/28/24 03:59 Primary Care Provider: Vanessa,Betsy Garay Admitting Provider: Lawrence Argueta Attending physician on admission: Reyna Kolb Condition: Stable
== END 2024-05-29 16:17 | disposition home or self-care (01) ==
LOC: ANHED 05-28 03:27 → ANHIMU 05-29 16:01
PROVIDERS: General Practice; Admitting Provider Internal Medicine; Emergency Provider Emergency Medicine; PCP Nurse Practitioner Family; Visit Provider Family Medicine
DX: I47.10 Supraventricular tachycardia, unspecified (principal); D72.829 Elevated white blood cell count, unspecified; R79.89 Other specified abnormal findings of blood chemistry; E06.3 Autoimmune thyroiditis
CPT/HCPCS: 36415; 71045; 71275; 80053; 80307; 81003; 81025; 83690; 83735; 84439; 84443; 84480; 84484; 85025; 85027; 85610; 85730; 93005; 93306; 96361; 96365; 96366; 96372; 96375; 99285; A9270; G0378; J1650; J2060; J3475; J7030; Q9957; Q9967

== ENCOUNTER 2024-12-20 23:07 | Emergency (ER) | payer BC, MEDICAID, SELFPAY ==
--- OUTSIDE RECORDS SUMMARY | 2024-12-20 23:09 | XMS_ITS | Clinical Summary ---
Author Organization [facility] Address [address] [place] [address] Care Team Providers Care Technology Director Name Role Phone Betsy Mendez [facility] Primary Care Provider [phone] Allergies No known active allergies Medications No known medications Social History Tobacco Use Types Packs/Day Years Used Date Smoking Tobacco: Never Smokeless Tobacco: Never Alcohol Use Standard Drinks/Week Comments Not Currently 0 (1 standard drink = 0.6 oz pur e alcohol) Comments No Sex and Gender Information Value Date Recorded Sex Assigned at Female 03/06/2024 5:06 PM DISTRICT REPRESENTATIVE Legal Sex Female 11:15 AM CDT Gender Identity Not on file Sexual Orientation Not on file Last Filed Vital Signs Vital Sign Reading Time Taken Comments Blood Pressure 127/89 03/06/2024 8:20 PM DISTRICT REPRESENTATIVE Pulse 90 03/06/2024 8:20 PM DISTRICT REPRESENTATIVE Temperature 37 C (98.6 F) 03/06/2024 5:05 PM DISTRICT REPRESENTATIVE Respiratory Rate 20 03/06/2024 8:20 PM DISTRICT REPRESENTATIVE Oxygen Saturation 100% 03/06/2024 8:20 PM DISTRICT REPRESENTATIVE Inhaled Oxygen Concentration - - Weight 124.7 kg (275 lb) 03/06/2024 5:05 PM DISTRICT REPRESENTATIVE Height 162.6 cm (5' 4) 03/06/2024 5:05 PM DISTRICT REPRESENTATIVE Body Mass Index 47.2 03/06/2024 5:05 PM DISTRICT REPRESENTATIVE Plan of Treatment Health Maintenance Due Date [...] - 19+ 3-dose series) 12/11/2019 COVID-19 Vaccine (2024-2 6 season) 2024 Influenza Adult (#1) 2024 Hepatitis A Vaccines Aged Out No long er eligible based on patient's age to complete this topic Meningococcal B Vaccine Aged Out No l onger eligible based on patient's age to complete this topic Meningococcal Vaccine Aged Out No evert louis [...] patient's age to complete this topic Insurance MEDICAID [facility] Care Teams Technology Director Relationship Specialty Start Date End Date Betsy Mendez, STONEMASON SUPERVISOR- PCP - General NURSE PRACTITIONER 05/18/23
--- OUTSIDE RECORDS SUMMARY | 2024-12-20 23:09 | XMS_ITS | Clinical Summary ---
Author Organization [facility] [address] [facility] [place] [address] Care Team Providers Care Billet Straightener Name Role Phone No, Physician Primary Care Provider [phone] Allergies No known active allergies Medications al & mag hydroxide with simethicone-dip henhydramine-li docaine (MAGIC MOUTHWASH) suspension 1-1-1 Swish and spit 10 mL every 4 (four) hours as needed (throat pain) 240 mL 05/19/2023 Active vit 42-nqbi-wzkcp-d dupree 18-1-350 mg capsuleIndicati ons:Less than 8 [...] couple different options in the area including [facility] versus [facility] or [facility] Pharyngitis 05/19/2023 Assessment & Plan [...] on file Legal Sex Female 10:38 AM HEAD KILN OPERATOR Gender Identity Female 01/23/2024 9:47 AM HEAD KILN OPERATOR Sexual Orientation Straight 01/23/2024 9: 47 AM HEAD KILN OPERATOR Obstetrics History Para Term AB IAB SAB Ectopic Multiple Livin g Live Births 2 0 0 0 2 0 2 0 0 0 0 Date Outcome GA Total Labor Labor/2nd/3rd Weight Sex Type Anes PTL Mary A1 A5 Name Clin SAB 023 SAB 4w0d SAB Last Filed Vital Signs Vital Sign Reading Time Taken Comments Blood Pressure 124/70 02/13/2024 6:28 PM HEAD KILN OPERATOR Pulse 95 02/13/2024 6:28 PM HEAD KILN OPERATOR Temperature 37.2 C (98.9 F) 02/13/2024 6:28 PM HEAD KILN OPERATOR Respiratory Rate 20 02/13/2024 6:28 PM HEAD KILN OPERATOR Oxygen Saturation 100% 02/13/2024 6:28 PM HEAD KILN OPERATOR Inhaled Oxygen Concentration - - Weight 123.8 kg (273 lb) 02/13/2024 6:28 PM HEAD KILN OPERATOR Height 162.6 cm (5' 4) 05/27/2023 2:40 PM CDT Body Mass Index 46.86 05/27/2023 2:40 PM CDT Plan of Treatment Health Maintenance Due Date Last Done Comments Cervical Cancer Screening 2000 Hepatitis C Screening 2000 DTaP/Tdap/Td Vaccine (1 - Tdap) 12/11/2011 Varicella Vaccines (1 of 2 - 13+ 2-dose series) 2013 HPV Vaccines (1 - 3-dose series) 12/11/2015 Hepatitis B Screening 2018 Regular Well Visit/Exam 18-64 2018 Depression Screening 05/18/2024 05/19/2023 Influenza Vaccine (#1) 2024 Pneumococcal vaccine <65 Aged Out No longer eligible based on patient's age to complete this topic Insurance [employer] Member Subscriber Plan / Payer (Ef fective 2023-Present) Name:Drew Reis Relation to Subscriber:Self Name:Drew Reis Payer ID:[id number] (NAIC) Group ID:[id number] Type:[facility] Address: [address] [place] [id number] IDPA Care Teams Billet Straightener Relationship Specialty Start Date End Date No, Physician PCP - General 07/02/24
[2024-12-20 23:11] VITALS: BP 141/71; PULSE 89; RESP 20; TEMP 36.8; O2SAT 99
[2024-12-21 02:01] LABS: BEDSIDEPREGUCG Negative (Negative)
[2024-12-21 02:18] LABS: Add Urine Microscopic? YES; Appearance Urine Turbid (Clear); Budding Yeast Urine Present /hpf; Glucose Urine UA Negative (Negative); Leukocyte Esterase Ur 2+ LEU/UL (Negative); Need Manual Microscopic Reviewed; Nitrate Urine Negative (Negative); Non Pathogenic Casts 0-2; Specific Grav Ur 1.024 (1.001-1.035)
[2024-12-21 02:57] VITALS: BP 129/92; PULSE 86; RESP 16; O2SAT 100
[2024-12-21] MEDS: ACETAMINOPHEN 500 MG TABLET 1000 MG PO (03:02)
--- NOTE | 2024-12-21 03:13 | ED.GENADULT ---
HPI - General Adult General Chief complaint: Headache Stated complaint: high blood pressure Time Seen by Provider: 12/21/24 02:51 History of Present Illness HPI narrative: This is a 28-year-old female presenting for a headache. Patient says for last 2 days she has had a frontal headache. She has checked her blood pressure home for this time is been elevated at 1 30/98. This prompted her to come to the emergency department. Patient says she gets headaches on a weekly basis. They are typically in the frontal region. They are not associated with visual changes. She is not confused or altered. She does not have any fevers chills nausea vomiting diarrhea. Related Data Allergies Allergy/AdvReac Type Severity Reaction Status Date / Time No Known Allergies Allergy Verified 12/20/24 23:13 [facility] Past Medical History Medical History Healthy female adult Social History Social History Alcohol intake: never Substance use: never Do You Feel Safe in your Home?: Yes Lack of Transportation: No Lack of Food: Never True Current Housing: I Have Housing Concerned About Future Housing: No Difficulty Paying Gas/Electric Bills: No Difficulty Paying for Meds: No Currently Unemployed: No Education: High School Diploma/GED Difficulty w/ Childcare or Family Care: No Spiritual care concerns: No Exam Narrative: APPEARANCE: No apparent distress. Head: atraumatic. 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 Cranial nerves 2-12 grossly intact. Sensation light touch, motor function cerebellar function intact for 4 extremities. Gait exam was normal. SKIN:: Warm, dry. Normal color PSYCHIATRIC: Normal affect Course Vital Signs Vital signs: Vital Signs Temperature 98.2 F 12/20/24 23:11 Pulse Rate 89 12/20/24 23:11 Respiratory Rate 20 12/20/24 23:11 Blood Pressure 141/71 H 12/20/24 23:11 Pulse Oximetry 99 12/20/24 23:11 Oxygen Delivery Room Air 12/20/24 23:11 Temperature 98.2 F 12/20/24 23:11 Pulse Rate 86 12/21/24 02:57 Respiratory Rate 16 12/21/24 02:57 Blood Pressure 129/92 H 12/21/24 02:57 Pulse Oximetry 100 12/21/24 02:57 Oxygen Delivery Room Air 12/20/24 23:11 Medical Decision Making MDM Narrative Medical decision making narrative: -Course: 28-year-old female presenting with a frontal headache and concerns blood pressure. Here her blood pressures are a safe level. Her headaches are essentially her typical headache and responded to Tylenol. Her neurologic exam is normal. I am very comfortable with the patient following up with her primary care physician for further management of her headaches and possible hypertension. Patient in agreement with plan. Discharged. -DDX includes but is not limited to: Tension headache, migraine, sinus pressure, ICH, idiopathic intracranial hypertension Vital Signs Vital Signs: Vital Signs Temperature 98.2 F 12/20/24 23:11 Pulse Rate 89 12/20/24 23:11 Respiratory Rate 20 12/20/24 23:11 Blood Pressure 141/71 H 12/20/24 23:11 Pulse Oximetry 99 12/20/24 23:11 Oxygen Delivery Room Air 12/20/24 23:11 Temperature 98.2 F 12/20/24 23:11 Pulse Rate 86 12/21/24 02:57 Respiratory Rate 16 12/21/24 02:57 Blood Pressure 129/92 H 12/21/24 02:57 Pulse Oximetry 100 12/21/24 02:57 Oxygen Delivery Room Air 12/20/24 23:11 Lab Data Labs: Lab Results 12/21/24 12/21/24 Range/Units 01:54 01:58 Urine Color Yellow (Yellow) Urine Appearance Turbid H (Clear) Urine pH 5.0 (5.0-9.0) Ur Specific [place] 1.024 (1.001-1.035) Urine Protein Trace (Negative) mg/dL Urine Glucose (UA) Negative (Negative) mg/dL Urine Ketones Negative (Negative) mg/dL Ur Blood (Man) 1+ H (Negative) Urine Nitrate Negative (Negative) Urine Bilirubin Negative (Negative) Urine Urobilinogen 0.2 (<2.0) mg/dL Add Ur Microanalysis Reviewed Leukocyte Esterase Rfl 2+ H (Negative) HIMANSHU/UL Urine RBC 6-10 H (0-2) /hpf Urine WBC 21-50 H (0-3) /hpf Ur Squamous Epith Cells Many H (Few) /hpf Urine Bacteria 4+ H /hpf Urine Casts 0-2 Urine Yeast (Budding) Present H (None) /hpf POC Urine HCG, Qual Negative (Negative) Discharge Plan Discharge Clinical Impression: Headache Patient Disposition: Home Condition: Stable Instructions: Antibiotic Form, Acute Headache (ED) Additional Instructions: He was seen emergency department for headaches. Please follow-up with your primary care physician for further management. If you develop any new or worsening symptoms return to the ED for re-evaluation. Patient Language: Portuguese Prescriptions: No Action levothyroxine [Synthroid] 75 mcg Tablet 75 mcg PO DAILY@0630 Qty: 30 0RF aspirin [Children's Aspirin] 81 mg Tablet,Chewable 81 mg PO DAILY@0800 Qty: 30 0RF Follow-up/Referrals: Vanessa,SUNG PoloP [Primary Care Provider, Unknown]
== END 2024-12-21 03:30 | disposition home or self-care (01) ==
LOC: ANHED 12-21 03:16
PROVIDERS: Emergency Provider Emergency Medicine
DX: R51.9 Headache, unspecified (principal); N39.0 Urinary tract infection, site not specified
CPT/HCPCS: 81001; 81025; 99283; A9270